=== PATIENT | male | born 1955 | race American Indian/Alaskan Native ===

== ENCOUNTER 2017-01-21 21:00 | Inpatient (IN) | payer MEDICAID ==
[2017-01-21] MEDS ORDERED: NACL 0.9% 1000 ML 1,000 ML ONE (21:09)
[2017-01-21] MEDS ORDERED: VASELINE LIP THERAPY TP PRN (21:11)
[2017-01-21] MEDS ORDERED: ARTIFICIAL TEARS OPHTH OINT OU PRN (21:11)
[2017-01-21] MEDS ORDERED: KEPPRA 1,000 MG/NS 0.75% 100ML 1,000 MG/100 ML BAG IV ONE (21:13)
[2017-01-21] MEDS ORDERED: ZEMURON IV ONE (21:14)
[2017-01-21] MEDS ORDERED: VERSED IV ONE (21:14)
[2017-01-21] MEDS ORDERED: KETALAR IV ONE (21:14)
[2017-01-21] MEDS ORDERED: fentaNYL DRIP Premix 2,000 MCG/100 ML BAG IV ONE (21:15)
--- NOTE | 2017-01-21 21:22 | Emergency Department Report ---
HPI - General Time Seen by Provider: 01/21/17 21:11 - HPI HPI: This is a 61-year-old [place] male presents to the emergency department from [facility] with complaint of 2 prolonged seizures. The patient has a history of seizure disorder. Allegedly, per EMS, the patient had a 10 minute long seizure followed by a second seizure that lasted about 17 minutes. He received 1 mg of Ativan prior to EMSs arrival. In route to the emergency department the patient appeared to start having some signs of respiratory distress. He is currently a poor historian secondary to his medical condition. ED Past Medical Hx - Past Medical History Hx Hypertension: Yes Hx Congestive Heart Failure: No Hx Diabetes: No Hx Seizures: Yes Hx Asthma: No Hx COPD: No Hx Dementia: Yes - Social History Smoking Status: Unknown if ever smoked - Medications Home Medications: Home Medications Medication Instructions Recorded Confirmed Last Taken Type Aspirin 81 mg PO DAILY 05/06/16 09/15/16 05/06/16 History Donepezil [Aricept] 10 mg PO QDAY 05/06/16 09/15/16 05/06/16 History levETIRAcetam [Keppra TAB] 750 mg PO BID tablet 09/16/16 Unknown Rx ED Review of Systems ROS: Stated complaint: SEIZURE Other details as noted in HPI Comment: Unobtainable due to pts medical conditions Physical Exam - Physical Exam Physical Exam: GENERAL: The patient is ill-appearing and unresponsive. HENT: Normocephalic. Atraumatic. Patient has moist mucous membranes. Oropharynx is clear. No Reflux. EYES: . Pupils equal reactive to light bilaterally. NECK: Supple. Trachea is midline. CHEST/LUNGS: Clear to auscultation. There is no respiratory distress noted. HEART/CARDIOVASCULAR: Regular. There is mild tachycardia. There is no gallop rub or murmur. ABDOMEN: Abdomen is soft. Patient has normal bowel sounds. There is no abdominal distention. SKIN: Skin is hot but dry. NEURO: Patient is unresponsive. Withdraws slightly from painful stimuli. No gag reflex. GCS of 6. MUSCULOSKELETAL: There is no tenderness or deformity. There is no limitation range of motion. There is no evidence of acute injury. - Intubation Time Out Performed: Yes Sedative: Ketamine Mg Given: 100 Paralytic: Rocuronium Mg Given: 70 Laryngoscope: Kenneth Size: 4 ET Tube Size: 8 Tube Secured Depth (cm): 24 Tube Secured Location: lips Tube Placement Confirmation: visualized tube passing t, equal breath sounds bilat, confirmation by capnometr Patient Tolerated Procedure: well Intubation Complications: none ED Medical Decision Making - Lab Data Result diagrams: 01/21/17 21:24 01/21/17 21:24 - Radiology Data Radiology results: report reviewed, image reviewed interpreted by me: Chest x-ray does not show any acute process. There are no pleural effusions, obvious pneumonia and there is no pneumothorax. ET tube appears to be in appropriate position above the stephany. CT of the head does not show any acute intracranial process including no ischemia, shift, mass, bleeding or skull fracture. - Medical Decision Making 61-year-old male presents after having 2 prolonged seizures. Patient is most likely postictal but has a GCS of 6 and no gag reflex. For this reason he was intubated. CT of the head does not show any bleed, shift, mass or any acute process. Chest x-ray shows appropriate position of the ET tube and no obvious pneumonia or pleural effusion. He has a lactic acidosis, leukocytosis and respiratory acidosis. He was covered with a loading dose of Keppra. He is on a benzodiazepine drip for both sedation and potentially treatment for prophylaxis against further seizures. He will be admitted to the ICU and has been accepted for admission by the hospitalist, Dr ludwig. - Differential Diagnosis CVA, TIA, status epilepticus Critical Care Time: Yes Critical care time in (mins) excluding proc time.: 35 Critical care attestation.: If time is entered above; I have spent that time in minutes in the direct care of this critically ill patient, excluding procedure time. Critical care time was spent on this patient and his initial evaluation, multiple re-evaluations, ordering an interpretation of labs and imaging, discussion with the admitting hospitalist, disposition planning. This does not include the time spent doing the intubation procedure. Critical Care Time: 35 minutes ED Disposition Clinical Impression: Status epilepticus, Seizure disorder, Respiratory acidosis, Lactic acidosis Respiratory failure Qualifiers: Chronicity: acute Respiratory failure complication: hypercapnia Qualified Code( s): J96.02 - Acute respiratory failure with hypercapnia Leukocytosis Qualifiers: Leukocytosis type: unspecified Qualified Code(s): D72.829 - Elevated white blood cell count, unspecified Disposition: 09 OP ADMIT IP TO THIS HOSP Is pt being admited?: Yes Condition: Serious Time of Disposition: 00:03
--- NOTE | 2017-01-21 21:37 | XRay Report ---
FINAL REPORT PROCEDURE: XR CHEST 1V AP TECHNIQUE: Chest radiograph anteroposterior view. CPT 78446 HISTORY: ETT placement COMPARISON: No prior studies are available for comparison. FINDINGS: Heart: Normal. Mediastinum/Vessels: Normal. Lungs/Pleural space: Likely mild hypoventilatory changes are seen at the right lung base. Bony thorax: No acute osseous abnormality. Life support devices: Endotracheal tube terminates 2.7 cm above the stephany.. IMPRESSION: Endotracheal tube terminates 2.7 cm above the stephany.
[2017-01-21 21:42] LABS: Hematocrit 42.5 % (35.5-45.6); Mean Corpuscular HGB Conc 33 % (32-34); Mean Corpuscular Hemoglobin 30 pg (28-32); Mean Corpuscular Volume 90 fl (84-94); Platelet Count 275 K/mm3 (140-440); Red Blood Count 4.73 M/mm3 (3.65-5.03); Red Cell Distribution Width 13.9 % (13.2-15.2)
[2017-01-21 21:45] LABS: Bilirubin,Urine NEG (Negative); Blood,Urine SM (Negative); Ketones,Urine NEG (Negative); Leukocyte Esterase,Urine NEG (Negative); Nitrite,Urine NEG (Negative); Urobilinogen,Urine < 2.0 mg/dL (<2.0)
[2017-01-21 21:51] LABS: INR 0.97 (0.87-1.13)
[2017-01-21 21:54] LABS: Eosinophils % (Auto) 0.2 % (0.0-4.3)
[2017-01-21] MEDS ORDERED: MIDAZOLAM 100 MG in NACL 0.9% 80 ML IV SCH (22:00)
[2017-01-21 22:03] LABS: Alanine Aminotransferase 17 units/L (7-56); Albumin 3.8 g/dL (3.9-5); Alkaline Phosphatase 77 units/L (35-129); Anion Gap 20 mmol/L; BUN/Creatinine Ratio 13.33; Blood Urea Nitrogen 20 mg/dL (9-20); Calcium 8.4 mg/dL (8.4-10.2); Carbon Dioxide 24 mmol/L (22-30); Chloride 102.4 mmol/L (98-107); Glucose 116 mg/dL (75-100); Potassium 4.4 mmol/L (3.6-5.0); Sodium 142 mmol/L (137-145); Total Protein 7.7 g/dL (6.3-8.2)
[2017-01-21 23:19] LABS: Basophils % (Manual) 0 % (0.0-1.8); Blastocytes % (Manual) 0 %; Eosinophils % (Manual) 0 % (0.0-4.3)
[2017-01-21 23:20] LABS: Diff Status Complete; Platelet Estimate Consistent w Auto; RBC Morphology Normal
[2017-01-21 23:30] LABS: ISTAT Base Excess 0; ISTAT HCO3 26.4; ISTAT PCO2 54.5 (35-45); ISTAT PH 7.292 (7.35-7.45); ISTAT PO2 98 (80-105); ISTAT SO2 97; ISTAT TCO2 28
[2017-01-21 23:34] LABS: LA REFLEX Y
[2017-01-21] MEDS ORDERED: VANCOMYCIN/NS 1 GM/250 ML 1 GM/250 ML BAG IV ONE (23:38)
[2017-01-21] MEDS ORDERED: ROCEPHIN/NS 2 GM/100 ML 2 GM/100 ML BAG IV ONE (23:38)
--- NOTE | 2017-01-21 23:42 | Cat Scan Report ---
FINAL REPORT PROCEDURE: CT HEAD/BRAIN WO CON TECHNIQUE: Computerized tomography of the head was performed without contrast material. HISTORY: AMS, seizures COMPARISON: Head CT dated September 14, 2016 FINDINGS: Maxillary sinuses are hypoplastic. Mastoid air cells are clear no calvarial fracture is seen. Calcifications are seen in the distal ICAs. Moderate volume loss is seen which is greatest in the frontal and temporal lobes. This may be due to dementia. Cerebral ventricles are normal in size. Mild chronic small vessel ischemic changes are seen without evidence of acute CVA. No acute intracranial hemorrhage or mass effect is seen. IMPRESSION: Appearance of the brain is unchanged since prior study.
[2017-01-22] MEDS ORDERED: ALUM-MAG HYDROX-SIMETH 200-200-20MG/5ML PO PRN (00:07)
[2017-01-22] MEDS ORDERED: MILK OF MAGNESIA PO PRN (00:07)
[2017-01-22] MEDS ORDERED: DULCOLAX PR PRN (00:07)
[2017-01-22] MEDS ORDERED: ZOFRAN IV PRN (00:07)
[2017-01-22] MEDS ORDERED: ATIVAN IV PRN (00:57)
[2017-01-22] MEDS ORDERED: TYLENOL PR ONE ×2 (01:40→01:55)
[2017-01-22 02:51] LABS: Cholesterol 273 mg/dL (50-199); HDL Cholesterol 73 mg/dL (40-59); LDL Cholesterol,Direct 187 mg/dL (50-130); Triglycerides 67 mg/dL (2-149)
[2017-01-22] MEDS ORDERED: NACL 0.9% 1000 ML 2,000 ML IV ONE (02:57)
[2017-01-22] MEDS ORDERED: ASPIRIN PR STA (03:02)
--- NOTE | 2017-01-22 03:03 | History and Physical Report ---
History of Present Illness Date of examination: 01/22/17 Date of admission: 01/22/17 00:07 Chief complaint: seizures History of present illness: Patient is 61-year-old with history of seizure disorder, dementia and hypertension. He is a resident at [facility] facility. He was sent in from skilled facility because of recurrent prolonged seizures. He apparently had 2 episodes of seizures, one of 10 mins duration and second of 17 mins duration. He was given IV Ativan. Paramedics were called and he was brought to the emergency department. He had respiratory distress and was therefore intubated in the Emergency department. Past History Past Medical History: hypertension, seizures, other (dementia) Past Surgical History: No surgical history Social history: full code, other (Lives in SNF). denies: smoking, alcohol abuse Family history: hypertension Medications and Allergies Allergies Allergy/AdvReac Type Severity Reaction Status Date / Time No Known Allergies Allergy Verified 01/21/17 22:27 Home Medications Medication Instructions Recorded Confirmed Last Taken Type Aspirin 81 mg PO DAILY 05/06/16 09/15/16 05/06/16 History Donepezil [Aricept] 10 mg PO QDAY 05/06/16 09/15/16 05/06/16 History levETIRAcetam [Keppra TAB] 750 mg PO BID tablet 09/16/16 Unknown Rx Active Meds: Active Medications Al Hydrox/Mg Hydrox/Simethicone (Alum-Mag Hydrox-Simeth 426-264-28xp/5ml) 30 ml PO Q4H PRN PRN Reason: Indigestion Aspirin (Baby Aspirin) 81 mg PO DAILY CHER Aspirin (Aspirin) 300 mg WI ONCE STA Stop: 01/22/17 03:03 Bisacodyl (Dulcolax) 10 mg WI QDAY PRN PRN Reason: constipation unrelieved by MOM Donepezil HCl (Aricept) 10 mg PO QDAY CHER Heparin Sodium (Porcine) (Heparin) 5,000 unit SUB-Q Q8HR CHER Hydrophilic Ointment (Vaseline Lip Therapy) 1 applic TP Q2HR PRN PRN Reason: Dry Lips Fentanyl Citrate (Fentanyl Drip Premix) 2,000 mcg in 100 mls @ 3.742 mls/hr IV TITR CHER; 1 MCG/KG/HR PRN Reason: Protocol Midazolam HCl 100 mg/ Sodium (Chloride) 100 mls @ 2 mls/hr IV TITR CHER; 2 MG/HR PRN Reason: Protocol Dextrose/Sodium Chloride (D5/0.45ns) 1,000 mls @ 75 mls/hr IV DIRECT CHER Levetiracetam 1,000 mg/ Sodium (Chloride) 110 mls @ 400 mls/hr IV Q12HR CHER Lorazepam (Ativan) 1 mg IV Q1H PRN PRN Reason: Seizures Magnesium Hydroxide (Milk Of Magnesia) 30 ml PO Q4H PRN PRN Reason: Constipation Multi-Ingred Cream/Lotion/Oil/Oint (Artificial Tears Ophth Oint) 1 applic OU Q4HR PRN PRN Reason: Dry Eye(s) Ondansetron HCl (Zofran) 4 mg IV Q6H PRN PRN Reason: nausea or vomiting Review of Systems ROS unobtainable: due to endotracheal tube Exam - Physical Exam Narrative exam: Gen Appearance: Not in acute distress, intubated,sedated HEENT: normocephalic, atraumatic Neck: supple, no JVD Lungs: Clear to auscultation, bilaterally, no rales, no wheeze Heart: S1 and S2 regular, no murmurs,no rubs or gallop, Abdomen: Soft , non tender, non distended, normal bowel sounds Extremity: No edema, no clubbing or cyanosis, Neuro :Intubated,sedated - Constitutional Vitals: Temp Pulse Resp BP Pulse Ox 101.2 F H 88 20 109/66 100 01/22/17 02:19 01/22/17 02:19 01/22/17 02:19 01/22/17 02:19 01/22/17 02:19 Results - Labs CBC & Chem 7: 01/21/17 21:24 01/21/17 21:24 Labs: Abnormal lab results 01/22/17 01/22/17 Range/Units 01:25 01:25 Lactic Acid 3.50 H* (0.7-2.0) mmol/L Troponin T 0.773 H* D (0.00-0.029) ng/mL Cholesterol 273 H (50-199) mg/dL LDL Cholesterol Direct 187 H (50-130) mg/dL HDL Cholesterol 73 H (40-59) mg/dL Assessment and Plan Acute respiratory failure. Admit to intensive care unit. Patient intubated and sedated. Consult distribution operations manager/ ekg manager. Breakthrough seizures. He has been given Ativan iv, Keppra IV. Continue Keppra 1000mg iv q 12 and ativan iv prn. Implement seizure precautions. Neuro checks every 4 hours. Hypertension. Bp stable. Will monitor. Lactic acidosis of 3.4. This is most likely due to seizures. Leukocytosis, likely reactive. Review of medical records shows his WBC is mostly elevated. Will however give empiric antibiotics of Zosyn and Vanco until infection ruled out. Dementia continue Aricept DVT prophylaxis with heparin Full code status.
[2017-01-22] MEDS ORDERED: VANCOMYCIN VIAL IV ONE (03:06)
[2017-01-22 03:29] LABS: LA REFLEX Y
[2017-01-22] MEDS ORDERED: VANCOMYCIN 1,500 MG in NACL 0.9% 500 ML 500 ML IV ONE (03:30)
[2017-01-22] MEDS ORDERED: VANCOMYCIN PHARMACY TO DOSE IV SCH (04:00)
[2017-01-22] MEDS ORDERED: VANCOMYCIN VIAL 500 MG in NACL 0.9% 100 ML IV ONE (04:00)
[2017-01-22] MEDS: LOPRESSOR IV SCH ×3 (04:25→21:02)
[2017-01-22] MEDS: fentaNYL DRIP Premix 2,000 MCG/100 ML BAG IV SCH ×2 (04:38→11:45)
[2017-01-22] MEDS: D5/0.45NS 1,000 ML IV SCH (05:12)
[2017-01-22] MEDS: ZOSYN/NS 4.5GM/100ML 4.5 GM/100 ML VIAL IV SCH ×3 (06:00→21:10)
[2017-01-22 06:06] LABS: ISTAT Base Excess -5; ISTAT HCO3 18.7; ISTAT PCO2 25.6 (35-45); ISTAT PH 7.472 (7.35-7.45); ISTAT PO2 163 (80-105); ISTAT SO2 100; ISTAT TCO2 19
--- NOTE | 2017-01-22 06:41 | Event Note ---
Date: 01/22/17 Second Troponin level elevated. Give Aspirin, Metoprolol iv, get Echo, consult cardiology.
[2017-01-22] MEDS ORDERED: KEPPRA 1,000 MG in NACL 0.9% 100 ML IV SCH (08:00)
--- NOTE | 2017-01-22 08:25 | XRay Report ---
AP CHEST: HISTORY: Followup respiratory failure The endotracheal tube remains in good position. A nasogastric tube has been inserted since yesterday's exam which terminates in the fundus of the stomach. Heart size and pulmonary vascularity remain within normal limits. Small right pleural effusion or right pleural thickening is suspected which is unchanged. The lungs are clear otherwise. IMPRESSION: No change.
[2017-01-22] MEDS ORDERED: BABY ASPIRIN PO SCH (10:00)
[2017-01-22] MEDS: KEPPRA 1,000 MG in NACL 0.9% 100 ML IV SCH ×2 (10:17→23:01)
[2017-01-22 10:18] LABS: Creatine Kinase MB 12.9 ng/mL (0.0-4.0)
[2017-01-22] MEDS: PEPCID IV SCH ×2 (10:25→23:07)
[2017-01-22] MEDS ORDERED: KETALAR ONE (10:39)
[2017-01-22] MEDS ORDERED: ZEMURON IV ONE (10:39)
[2017-01-22] MEDS: ARICEPT PO SCH (11:33)
--- NOTE | 2017-01-22 11:51 | Consultation ---
History of Present Illness Consult date: 01/22/17 Requesting physician: ANDERSON HARRISON Consult reason: abnormal cardiac enzymes History of present illness: The pt is a 61 YO NHR male with a past medical history significant for seizure d /o, HTN and dementia. He is previously unknown to our practice. He is intubated and sedated on evaluation with no family at bedside and thus HPI is obtained per the records and per primary RN. Pt presented to the emergency department from [facility] with complaint of 2 prolonged seizures. The patient has a history of seizure disorder. Allegedly, per EMS, the patient had a 10 minute long seizure followed by a second seizure that lasted about 17 minutes. He received 1 mg of Ativan prior to EMSs arrival. In route to the emergency department the patient appeared to start having some signs of respiratory distress and was subsequently intubated in the ED. Following admission, troponins were found to be elevated and thus cardiology has been consulted. Past History Past Medical History: hypertension, seizures, other (dementia) Past Surgical History: No surgical history Social history: full code, other (Lives in SNF). denies: smoking, alcohol abuse Family history: hypertension Medications and Allergies Allergies Allergy/AdvReac Type Severity Reaction Status Date / Time No Known Allergies Allergy Verified 01/21/17 22:27 Home Medications Medication Instructions Recorded Confirmed Last Taken Type Aspirin 81 mg PO DAILY 05/06/16 09/15/16 05/06/16 History Donepezil [Aricept] 10 mg PO QDAY 05/06/16 09/15/16 05/06/16 History levETIRAcetam [Keppra TAB] 750 mg PO BID tablet 09/16/16 Unknown Rx Active Meds: Active Medications Al Hydrox/Mg Hydrox/Simethicone (Alum-Mag Hydrox-Simeth [phone]/5ml) 30 ml PO Q4H PRN PRN Reason: Indigestion Bisacodyl (Dulcolax) 10 mg MD QDAY PRN PRN Reason: constipation unrelieved by MOM Donepezil HCl (Aricept) 10 mg PO QDAY [facility] Last Admin: 01/22/17 11:33 Dose: 10 mg Famotidine (Pepcid) 20 mg IV BID [facility] Last Admin: 01/22/17 10:25 Dose: 20 mg Heparin Sodium (Porcine) (Heparin) 5,000 unit SUB-Q Q8HR CHER Hydrophilic Ointment (Vaseline Lip Therapy) 1 applic TP Q2HR PRN PRN Reason: Dry Lips Fentanyl Citrate (Fentanyl Drip Premix) 2,000 mcg in 100 mls @ 3.742 mls/hr IV TITR CHER; 1 MCG/KG/HR PRN Reason: Protocol Last Titration: 01/22/17 11:44 Dose: Infused Midazolam HCl 100 mg/ Sodium (Chloride) 100 mls @ 2 mls/hr IV TITR CHER; 2 MG/HR PRN Reason: Protocol Last Titration: 01/22/17 11:43 Dose: 2 mg/hr, 2 mls/hr Dextrose/Sodium Chloride (D5/0.45ns) 1,000 mls @ 75 mls/hr IV DIRECT CHER Last Admin: 01/22/17 05:12 Dose: 75 mls/hr Levetiracetam 1,000 mg/ Sodium (Chloride) 110 mls @ 400 mls/hr IV Q12HR CHER Last Admin: 01/22/17 10:17 Dose: 400 mls/hr Piperacillin Sod/Tazobactam Sod (Zosyn/Ns 4.5gm/100ml) 4.5 gm in 100 mls @ 200 mls/hr IV Q8H CHER PRN Reason: Protocol Last Admin: 01/22/17 06:00 Dose: 200 mls/hr Vancomycin HCl 1,250 mg/ (Sodium Chloride) 262.5 mls @ 166.667 mls/hr IV Q24H CHER Lorazepam (Ativan) 1 mg IV Q1H PRN PRN Reason: Seizures Magnesium Hydroxide (Milk Of Magnesia) 30 ml PO Q4H PRN PRN Reason: Constipation Metoprolol Tartrate (Lopressor) 2.5 mg IV Q8H [facility] Last Admin: 01/22/17 11:41 Dose: Not Given Multi-Ingred Cream/Lotion/Oil/Oint (Artificial Tears Ophth Oint) 1 applic OU Q4HR PRN PRN Reason: Dry Eye(s) Ondansetron HCl (Zofran) 4 mg IV Q6H PRN PRN Reason: nausea or vomiting Vancomycin HCl (Vancomycin Pharmacy To Dose) 1 each IV PKCONSULT CHER PRN Reason: Protocol Review of Systems ROS unobtainable: due to endotracheal tube, due to mental status Physical Examination Vital Signs Temp Pulse Resp BP Pulse Ox 98.9 F 103 H 6 L 103/53 96 01/21/17 21:00 01/21/17 21:00 01/21/17 21:00 01/21/17 21:00 01/21/17 21:00 General appearance: other (intubated; sedated) HEENT: Positive: PERRL, Normocephaly, Mucus Membranes Moist Neck: Positive: neck supple, trachea midline Cardiac: Positive: Reg Rate and Rhythm, S1/S2 Lungs: Positive: clear to auscultation, Ventilated Respirations Neuro: Positive: Other (intubated; sedated) Abdomen: Positive: Soft, Active Bowel Sounds Skin: Positive: Clear. Negative: Rash, Wound Musculoskeletal: No Fluid Collection, No Pain, Normal Range of Motion Extremities: Absent: edema Results 01/21/17 21:24 01/21/17 21:24 Cardiac Enzymes 01/22/17 Range/Units 09:38 CK-MB (CK-2) 12.9 H (0.0-4.0) ng/mL Lipids 01/22/17 Range/Units 01:25 Triglycerides 67 (2-149) mg/dL Cholesterol 273 H (50-199) mg/dL HDL Cholesterol 73 H (40-59) mg/dL Cholesterol/HDL Ratio 3.73 % - Imaging and Cardiology Echo: pending EKG: image reviewed EKG interpretations - Telemetry EKG Rhythm: Sinus Rhythm - EKG Sinus rhythms and dysrhythmias: sinus rhythm AV and intraventricular conduction: right bundle branch block Repolarization changes or abnormalities: nonspecific abnormality, ST segment, and/or T wave Assessment and Plan Assessment: Acute respiratory failure - intubated Seizure d/o Elevated troponin - Joy trending down; ECG with no ischemic changes; likely secondary to recent seizure activity and suspected acute infection H/o HTN - currently with low normal BPs Lactic acidosis / leukocytosis / ? UTI / ? sepsis - blood and sputum cultures in process RBBB HLP H/o dementia Plan: Await echo. Obtain serial EKGs. Cont to trend Joy. Cont ASA MD, statin, lopressor. IV ABX per primary. Cont supportive measures. Suspect elevated Joy are secondary to recent seizure activity and suspected acute infection. Continue with conservative medical cardiac management and this time unless ischemic eval becomes emergently indicated. Will consider ischemic evaluation once medically stabilized and once baseline mental status is known. The patient has been seen in conjunction with Dr. Doss who agrees with the assessment and plan of care.
[2017-01-22 16:04] LABS: Creatine Kinase MB 17.4 ng/mL (0.0-4.0)
[2017-01-22] MEDS: HEPARIN SUB-Q SCH ×2 (16:06→23:06)
--- NOTE | 2017-01-22 21:47 | Consultation ---
History of Present Illness Consult date: 01/22/17 Requesting physician: ANDERSON HARRISON Reason for consult: other (Acute respiratory failure) History of present illness: 61 yo with dementia, seizure d/o, resides at [place], admitted w/ 2 long seizures. Required intubation for airway protection. On Versed and Fentanyl drips now, sedated, and cannot provide hx. Further hx not obtainable. No seizures today. Active Medications Al Hydrox/Mg Hydrox/Simethicone (Alum-Mag Hydrox-Simeth 045-195-15th/5ml) 30 ml PO Q4H PRN PRN Reason: Indigestion Aspirin (Aspirin) 300 mg KS QDAY CHER Atorvastatin Calcium (Lipitor) 40 mg PO QHS CHER Bisacodyl (Dulcolax) 10 mg KS QDAY PRN PRN Reason: constipation unrelieved by MOM Donepezil HCl (Aricept) 10 mg PO QDAY CHER Last Admin: 01/22/17 11:33 Dose: 10 mg Famotidine (Pepcid) 20 mg IV BID CHER Last Admin: 01/22/17 10:25 Dose: 20 mg Heparin Sodium (Porcine) (Heparin) 5,000 unit SUB-Q Q8HR CHER Last Admin: 01/22/17 16:06 Dose: 5,000 unit Hydrophilic Ointment (Vaseline Lip Therapy) 1 applic TP Q2HR PRN PRN Reason: Dry Lips Fentanyl Citrate (Fentanyl Drip Premix) 2,000 mcg in 100 mls @ 3.742 mls/hr IV TITR CHER; 1 MCG/KG/HR PRN Reason: Protocol Last Titration: 01/22/17 17:15 Dose: 5 mcg/kg/hr, 18.711 mls/hr Midazolam HCl 100 mg/ Sodium (Chloride) 100 mls @ 2 mls/hr IV TITR CHER; 2 MG/HR PRN Reason: Protocol Last Titration: 01/22/17 20:08 Dose: 4 mg/hr, 4 mls/hr Dextrose/Sodium Chloride (D5/0.45ns) 1,000 mls @ 75 mls/hr IV DIRECT CHER Last Admin: 01/22/17 05:12 Dose: 75 mls/hr Levetiracetam 1,000 mg/ Sodium (Chloride) 110 mls @ 400 mls/hr IV Q12HR CHER Last Infusion: 01/22/17 12:23 Dose: Infused Piperacillin Sod/Tazobactam Sod (Zosyn/Ns 4.5gm/100ml) 4.5 gm in 100 mls @ 200 mls/hr IV Q8H CHER PRN Reason: Protocol Last Admin: 01/22/17 21:10 Dose: 200 mls/hr Vancomycin HCl 1,250 mg/ (Sodium Chloride) 262.5 mls @ 166.667 mls/hr IV Q24H CHER Lorazepam (Ativan) 1 mg IV Q1H PRN PRN Reason: Seizures Magnesium Hydroxide (Milk Of Magnesia) 30 ml PO Q4H PRN PRN Reason: Constipation Metoprolol Tartrate (Lopressor) 2.5 mg IV Q8H CHER Last Admin: 01/22/17 21:02 Dose: Not Given Multi-Ingred Cream/Lotion/Oil/Oint (Artificial Tears Ophth Oint) 1 applic OU Q4HR PRN PRN Reason: Dry Eye(s) Ondansetron HCl (Zofran) 4 mg IV Q6H PRN PRN Reason: nausea or vomiting Vancomycin HCl (Vancomycin Pharmacy To Dose) 1 each IV PKCONSULT [facility]ER PRN Reason: Protocol Past History Past Medical History: hypertension, seizures, other (dementia) Past Surgical History: No surgical history Social history: full code, other (Lives in SNF). denies: smoking, alcohol abuse Family history: hypertension Medications and Allergies Allergies Allergy/AdvReac Type Severity Reaction Status Date / Time No Known Allergies Allergy Verified 01/21/17 22:27 Home Medications Medication Instructions Recorded Confirmed Last Taken Type Aspirin 81 mg PO DAILY 05/06/16 01/22/17 05/06/16 History Donepezil [Aricept] 10 mg PO QDAY 05/06/16 01/22/17 05/06/16 History levETIRAcetam [Keppra TAB] 750 mg PO BID tablet 09/16/16 01/22/17 Unknown Rx Cholecalciferol (Vitamin D3) 1,000 unit PO DAILY 01/22/17 01/22/17 Unknown History [Children's Vitamin D3 1,000 unit CHEW] Sennosides [Senna] 17.2 mg PO DAILY 01/22/17 01/22/17 Unknown History Active Meds: Active Medications Al Hydrox/Mg Hydrox/Simethicone (Alum-Mag Hydrox-Simeth 412-843-82ak/5ml) 30 ml PO Q4H PRN PRN Reason: Indigestion Aspirin (Aspirin) 300 mg KS QDAY CHER Atorvastatin Calcium (Lipitor) 40 mg PO QHS CHER Bisacodyl (Dulcolax) 10 mg KS QDAY PRN PRN Reason: constipation unrelieved by MOM Donepezil HCl (Aricept) 10 mg PO QDAY CHER Last Admin: 01/22/17 11:33 Dose: 10 mg Famotidine (Pepcid) 20 mg IV BID CHER Last Admin: 01/22/17 10:25 Dose: 20 mg Heparin Sodium (Porcine) (Heparin) 5,000 unit SUB-Q Q8HR CHER Last Admin: 01/22/17 16:06 Dose: 5,000 unit Hydrophilic Ointment (Vaseline Lip Therapy) 1 applic TP Q2HR PRN PRN Reason: Dry Lips Fentanyl Citrate (Fentanyl Drip Premix) 2,000 mcg in 100 mls @ 3.742 mls/hr IV TITR CHER; 1 MCG/KG/HR PRN Reason: Protocol Last Titration: 01/22/17 17:15 Dose: 5 mcg/kg/hr, 18.711 mls/hr Midazolam HCl 100 mg/ Sodium (Chloride) 100 mls @ 2 mls/hr IV TITR CHER; 2 MG/HR PRN Reason: Protocol Last Titration: 01/22/17 20:08 Dose: 4 mg/hr, 4 mls/hr Dextrose/Sodium Chloride (D5/0.45ns) 1,000 mls @ 75 mls/hr IV DIRECT CHER Last Admin: 01/22/17 05:12 Dose: 75 mls/hr Levetiracetam 1,000 mg/ Sodium (Chloride) 110 mls @ 400 mls/hr IV Q12HR CHER Last Infusion: 01/22/17 12:23 Dose: Infused Piperacillin Sod/Tazobactam Sod (Zosyn/Ns 4.5gm/100ml) 4.5 gm in 100 mls @ 200 mls/hr IV Q8H CHER PRN Reason: Protocol Last Admin: 01/22/17 21:10 Dose: 200 mls/hr Vancomycin HCl 1,250 mg/ (Sodium Chloride) 262.5 mls @ 166.667 mls/hr IV Q24H CHER Lorazepam (Ativan) 1 mg IV Q1H PRN PRN Reason: Seizures Magnesium Hydroxide (Milk Of Magnesia) 30 ml PO Q4H PRN PRN Reason: Constipation Metoprolol Tartrate (Lopressor) 2.5 mg IV Q8H [facility] Last Admin: 01/22/17 21:02 Dose: Not Given Multi-Ingred Cream/Lotion/Oil/Oint (Artificial Tears Ophth Oint) 1 applic OU Q4HR PRN PRN Reason: Dry Eye(s) Ondansetron HCl (Zofran) 4 mg IV Q6H PRN PRN Reason: nausea or vomiting Vancomycin HCl (Vancomycin Pharmacy To Dose) 1 each IV PKCONSULT [facility] PRN Reason: Protocol Review of Systems ROS unobtainable: due to endotracheal tube Physical Examination Vital signs: Vital Signs Temp Pulse Resp BP Pulse Ox 98.9 F 103 H 6 L 103/53 96 01/21/17 21:00 01/21/17 21:00 01/21/17 21:00 01/21/17 21:00 01/21/17 21:00 Vital Signs - 24 hr 01/21/17 01/21/17 01/21/17 22:00 22:35 23:45 Temperature Pulse Rate 86 84 Pulse Rate [ Left Radial] Pulse Rate [ Right Radial] Respiratory 20 20 Rate Blood Pressure Blood Pressure 111/63 119/66 [Right] O2 Sat by Pulse 100 Oximetry 01/22/17 01/22/17 01/22/17 00:00 00:49 01:16 Temperature Pulse Rate 87 83 86 Pulse Rate [ Left Radial] Pulse Rate [ Right Radial] Respiratory 20 22 Rate Blood Pressure Blood Pressure 117/70 [Right] O2 Sat by Pulse 100 100 100 Oximetry 01/22/17 01/22/17 01/22/17 01:30 01:45 02:00 Temperature Pulse Rate 85 86 92 H Pulse Rate [ Left Radial] Pulse Rate [ Right Radial] Respiratory 22 22 19 Rate Blood Pressure 102/59 114/66 103/60 Blood Pressure [Right] O2 Sat by Pulse 100 100 100 Oximetry 01/22/17 01/22/17 01/22/17 02:15 02:19 02:30 Temperature 101.2 F H Pulse Rate 90 88 86 Pulse Rate [ Left Radial] Pulse Rate [ Right Radial] Respiratory 22 20 22 Rate Blood Pressure 109/66 101/63 Blood Pressure 109/66 [Right] O2 Sat by Pulse 100 100 100 Oximetry 01/22/17 01/22/17 01/22/17 02:46 03:00 03:02 Temperature Pulse Rate 82 77 78 Pulse Rate [ Left Radial] Pulse Rate [ Right Radial] Respiratory 22 22 20 Rate Blood Pressure 97/58 97/58 Blood Pressure 110/57 [Right] O2 Sat by Pulse 100 100 98 Oximetry 01/22/17 01/22/17 01/22/17 03:15 03:30 03:46 Temperature Pulse Rate 75 75 72 Pulse Rate [ Left Radial] Pulse Rate [ Right Radial] Respiratory 22 22 22 Rate Blood Pressure 110/57 110/57 113/58 Blood Pressure [Right] O2 Sat by Pulse 100 100 100 Oximetry 01/22/17 01/22/17 01/22/17 04:00 04:16 04:25 Temperature Pulse Rate 68 72 77 Pulse Rate [ Left Radial] Pulse Rate [ Right Radial] Respiratory 22 22 Rate Blood Pressure 110/55 105/65 124/70 Blood Pressure [Right] O2 Sat by Pulse 100 61 L Oximetry 01/22/17 01/22/17 01/22/17 04:30 04:46 05:00 Temperature Pulse Rate 78 72 70 Pulse Rate [ Left Radial] Pulse Rate [ Right Radial] Respiratory 22 22 22 Rate Blood Pressure 124/70 124/68 124/68 Blood Pressure [Right] O2 Sat by Pulse 100 100 100 Oximetry 01/22/17 01/22/17 01/22/17 05:15 05:22 05:30 Temperature 100.5 F H Pulse Rate 71 71 71 Pulse Rate [ Left Radial] Pulse Rate [ Right Radial] Respiratory 22 22 22 Rate Blood Pressure 105/65 110/55 Blood Pressure 120/60 [Right] O2 Sat by Pulse 100 100 100 Oximetry 01/22/17 01/22/17 01/22/17 05:46 06:00 06:16 Temperature Pulse Rate 69 73 73 Pulse Rate [ Left Radial] Pulse Rate [ Right Radial] Respiratory 22 18 18 Rate Blood Pressure 110/55 109/54 109/54 Blood Pressure [Right] O2 Sat by Pulse 100 100 100 Oximetry 01/22/17 01/22/17 01/22/17 06:30 06:46 07:00 Temperature 100.1 F H Pulse Rate 73 72 71 Pulse Rate [ Left Radial] Pulse Rate [ Right Radial] Respiratory 18 18 18 Rate Blood Pressure 114/64 114/64 114/61 Blood Pressure 115/64 [Right] O2 Sat by Pulse 100 100 100 Oximetry 01/22/17 01/22/17 01/22/17 07:16 07:30 07:46 Temperature Pulse Rate 73 70 67 Pulse Rate [ Left Radial] Pulse Rate [ Right Radial] Respiratory 18 18 18 Rate Blood Pressure 114/61 111/51 111/51 Blood Pressure [Right] O2 Sat by Pulse 100 100 100 Oximetry 01/22/17 01/22/17 01/22/17 08:00 08:16 08:30 Temperature Pulse Rate 66 64 63 Pulse Rate [ 66 Left Radial] Pulse Rate [ 66 Right Radial] Respiratory 18 18 18 Rate Blood Pressure 98/50 98/50 98/50 Blood Pressure [Right] O2 Sat by Pulse 100 100 100 Oximetry 01/22/17 01/22/17 01/22/17 08:46 09:00 09:16 Temperature Pulse Rate 63 65 62 Pulse Rate [ Left Radial] Pulse Rate [ Right Radial] Respiratory 18 18 18 Rate Blood Pressure 104/58 110/56 110/56 Blood Pressure [Right] O2 Sat by Pulse 100 100 100 Oximetry 01/22/17 01/22/17 01/22/17 09:30 09:46 10:00 Temperature Pulse Rate 65 68 65 Pulse Rate [ 67 Left Radial] Pulse Rate [ Right Radial] Respiratory 18 18 18 Rate Blood Pressure 106/54 106/54 106/54 Blood Pressure [Right] O2 Sat by Pulse 100 100 100 Oximetry 01/22/17 01/22/17 01/22/17 10:16 10:30 10:46 Temperature Pulse Rate 67 68 68 Pulse Rate [ Left Radial] Pulse Rate [ Right Radial] Respiratory 18 18 18 Rate Blood Pressure 106/54 110/58 110/58 Blood Pressure [Right] O2 Sat by Pulse 100 100 100 Oximetry 01/22/17 01/22/17 01/22/17 11:00 11:16 11:30 Temperature Pulse Rate 72 68 64 Pulse Rate [ Left Radial] Pulse Rate [ Right Radial] Respiratory 18 18 18 Rate Blood Pressure 106/65 106/65 111/59 Blood Pressure [Right] O2 Sat by Pulse 100 100 Oximetry 01/22/17 01/22/17 01/22/17 11:41 11:46 12:00 Temperature Pulse Rate 60 68 66 Pulse Rate [ Left Radial] Pulse Rate [ Right Radial] Respiratory 18 18 Rate Blood Pressure 106/65 111/59 111/60 Blood Pressure [Right] O2 Sat by Pulse Oximetry 01/22/17 01/22/17 01/22/17 12:16 12:30 12:46 Temperature Pulse Rate 65 64 67 Pulse Rate [ Left Radial] Pulse Rate [ Right Radial] Respiratory 18 18 18 Rate Blood Pressure 112/58 111/62 111/62 Blood Pressure [Right] O2 Sat by Pulse Oximetry 01/22/17 01/22/17 01/22/17 13:00 13:16 13:30 Temperature Pulse Rate 77 64 64 Pulse Rate [ Left Radial] Pulse Rate [ Right Radial] Respiratory 18 18 18 Rate Blood Pressure 124/67 124/67 111/60 Blood Pressure [Right] O2 Sat by Pulse Oximetry 01/22/17 01/22/17 01/22/17 13:46 14:00 14:16 Temperature Pulse Rate 68 65 113 H Pulse Rate [ 68 Left Radial] Pulse Rate [ 68 Right Radial] Respiratory 18 18 18 Rate Blood Pressure 111/60 121/63 121/63 Blood Pressure [Right] O2 Sat by Pulse Oximetry 01/22/17 01/22/17 01/22/17 14:30 14:46 15:00 Temperature Pulse Rate 68 66 66 Pulse Rate [ Left Radial] Pulse Rate [ Right Radial] Respiratory 18 18 18 Rate Blood Pressure 128/64 128/64 118/61 Blood Pressure [Right] O2 Sat by Pulse Oximetry 01/22/17 01/22/17 01/22/17 15:16 15:30 15:46 Temperature Pulse Rate 66 75 62 Pulse Rate [ Left Radial] Pulse Rate [ Right Radial] Respiratory 18 18 18 Rate Blood Pressure 128/64 128/71 128/71 Blood Pressure [Right] O2 Sat by Pulse 100 100 100 Oximetry 01/22/17 01/22/17 01/22/17 16:00 16:16 16:30 Temperature Pulse Rate 61 75 65 Pulse Rate [ 69 Left Radial] Pulse Rate [ 69 Right Radial] Respiratory 18 16 18 Rate Blood Pressure 126/61 128/62 128/62 Blood Pressure [Right] O2 Sat by Pulse 100 100 100 Oximetry 01/22/17 01/22/17 01/22/17 16:46 17:00 17:16 Temperature Pulse Rate 65 63 73 Pulse Rate [ Left Radial] Pulse Rate [ Right Radial] Respiratory 18 18 18 Rate Blood Pressure 143/62 144/68 144/68 Blood Pressure [Right] O2 Sat by Pulse 100 100 100 Oximetry 01/22/17 01/22/17 01/22/17 17:30 17:46 18:00 Temperature Pulse Rate 82 74 62 Pulse Rate [ Left Radial] Pulse Rate [ Right Radial] Respiratory 16 18 18 Rate Blood Pressure 148/81 148/81 140/90 Blood Pressure [Right] O2 Sat by Pulse 100 100 Oximetry 01/22/17 01/22/17 01/22/17 18:16 18:30 18:46 Temperature Pulse Rate 63 62 60 Pulse Rate [ 68 Left Radial] Pulse Rate [ 68 Right Radial] Respiratory 18 18 18 Rate Blood Pressure 140/90 126/61 126/61 Blood Pressure [Right] O2 Sat by Pulse 100 100 100 Oximetry 01/22/17 01/22/17 01/22/17 19:00 19:16 19:26 Temperature Pulse Rate 59 L 59 L 58 L Pulse Rate [ Left Radial] Pulse Rate [ Right Radial] Respiratory 17 18 Rate Blood Pressure 119/59 119/59 132/63 Blood Pressure [Right] O2 Sat by Pulse 100 100 100 Oximetry 01/22/17 01/22/17 01/22/17 19:30 19:46 20:00 Temperature Pulse Rate 58 L 61 59 L Pulse Rate [ Left Radial] Pulse Rate [ Right Radial] Respiratory 18 18 18 Rate Blood Pressure 132/63 132/63 118/60 Blood Pressure [Right] O2 Sat by Pulse 100 100 100 Oximetry 01/22/17 01/22/17 21:02 21:11 Temperature Pulse Rate 58 L Pulse Rate [ Left Radial] Pulse Rate [ Right Radial] Respiratory 18 Rate Blood Pressure 121/62 Blood Pressure [Right] O2 Sat by Pulse 100 Oximetry General appearance: other (sedated, critically ill on vent) Eyes: non-icteric ENT: oropharynx moist Neck: supple Effort: normal Ascultation: Bilateral: clear Cardiovascular: regular rate and rhythm (no mrg) Gastrointestinal: normoactive bowel sounds, soft, non-tender, non-distended Integumentary: normal Extremities: no cyanosis, no edema unable to assess other (unable to assess) Results - Laboratory Findings CBC and BMP: 01/21/17 21:24 01/21/17 21:24 ABG POC ABG pH 7.472 (7.35-7.45) H 01/22/17 05:55 POC ABG pCO2 25.6 (35-45) L 01/22/17 05:55 POC ABG pO2 163 (80-105) H 01/22/17 05:55 POC ABG HCO3 18.7 01/22/17 05:55 POC ABG Total CO2 19 01/22/17 05:55 POC ABG O2 Sat 100 01/22/17 05:55 PT/INR, D-dimer PT 13.4 Sec. (12.2-14.9) 01/21/17 21:24 INR 0.97 (0.87-1.13) 01/21/17 21:24 Abnormal lab findings: Abnormal Labs 01/22/17 01/22/17 01/22/17 01:25 01:25 03:58 POC ABG pH POC ABG pCO2 POC ABG pO2 POC Glucose Lactic Acid 3.50 H* Total Creatine Kinase CK-MB (CK-2) Troponin T 0.773 H* D 0.702 H* Cholesterol 273 H LDL Cholesterol Direct 187 H HDL Cholesterol 73 H 01/22/17 01/22/17 01/22/17 05:55 08:08 09:38 POC ABG pH 7.472 H POC ABG pCO2 25.6 L POC ABG pO2 163 H POC Glucose 127 H Lactic Acid Total Creatine Kinase 1076 H CK-MB (CK-2) Troponin T Cholesterol LDL Cholesterol Direct HDL Cholesterol 01/22/17 01/22/17 01/22/17 09:38 15:20 15:32 POC ABG pH POC ABG pCO2 POC ABG pO2 POC Glucose Lactic Acid 2.90 H* Total Creatine Kinase 1022 H 1649 H CK-MB (CK-2) 12.9 H 17.4 H Troponin T 0.484 H* D 0.435 H* Cholesterol LDL Cholesterol Direct HDL Cholesterol - Diagnostic Findings Chest x-ray: report reviewed, image reviewed Assessment and Plan Imp: 1. Seizure d/o w/ seizures 2. Acute respiratory failure, hypoxia 3. SIRS and lactic acidosis probably 2/2 #1 4. CHET 5. Dementia Rec: 1. Rest on vent overnight 2. PSV in AM w/ SAT 3. Increase Keppra to 1 gram BID 4. Agree w/ empiric ABX pending cultures 5. IVFs 6. DVT and GI PPx No family present. Thanks for the consult. CCT 31 minutes
[2017-01-23 01:52] LABS: Basophils % (Auto) 0.5 % (0.0-1.8); Eosinophils % (Auto) 0.8 % (0.0-4.3); Hemoglobin 11.6 gm/dl (11.8-15.2); Mean Corpuscular HGB Conc 33 % (32-34); Mean Corpuscular Hemoglobin 30 pg (28-32); Mean Corpuscular Volume 90 fl (84-94); Platelet Count 217 K/mm3 (140-440); Red Blood Count 3.91 M/mm3 (3.65-5.03); Red Cell Distribution Width 14.1 % (13.2-15.2); White Blood Count 12.6 K/mm3 (4.5-11.0)
[2017-01-23 02:37] LABS: Sodium TNR mmol/L (137-145)
[2017-01-23 02:39] LABS: Anion Gap TNR mmol/L; Carbon Dioxide TNR mmol/L (22-30); Chloride TNR mmol/L (98-107); Potassium TNR mmol/L (3.6-5.0)
[2017-01-23 02:40] LABS: BUN/Creatinine Ratio TNR; Blood Urea Nitrogen TNR mg/dL (9-20); Calcium TNR mg/dL (8.4-10.2); Glucose TNR mg/dL (75-100); Magnesium TNR mg/dL (1.7-2.3)
[2017-01-23] MEDS: ZOSYN/NS 4.5GM/100ML 4.5 GM/100 ML VIAL IV SCH ×3 (03:50→20:26)
[2017-01-23] MEDS: LOPRESSOR IV SCH ×3 (03:51→20:21)
[2017-01-23 04:30] LABS: Anion Gap 13 mmol/L; BUN/Creatinine Ratio 10; Blood Urea Nitrogen 11 mg/dL (9-20); Calcium 7.6 mg/dL (8.4-10.2); Carbon Dioxide 21 mmol/L (22-30); Glucose 91 mg/dL (75-100); Potassium 3.4 mmol/L (3.6-5.0); Sodium 141 mmol/L (137-145)
[2017-01-23 04:43] LABS: ISTAT Base Excess -4; ISTAT HCO3 20.3; ISTAT PCO2 30.6 (35-45); ISTAT PH 7.429 (7.35-7.45); ISTAT PO2 155 (80-105); ISTAT SO2 99; ISTAT TCO2 21
[2017-01-23] MEDS: VANCOMYCIN 1,250 MG in NACL 0.9% 250ML 250 ML IV SCH (04:43)
[2017-01-23] MEDS: HEPARIN SUB-Q SCH ×3 (06:32→22:11)
--- NOTE | 2017-01-23 07:41 | XRay Report ---
Portable chest: Respiratory failure. Endotracheal and nasogastric tubes are in good positions. There is pleural thickening at the right lung base laterally and blunting of the costophrenic angle. Lungs are generally clear there is no vascular congestion however there is a focal increased density in the left upper lung not identified on prior exam. The heart is normal in size. Impression: 1. New focal opacity in the left upper lobe. 2. Chronic pleural changes and well positioned support tubes.
[2017-01-23 09:04] LABS: ISTAT Base Excess -2; ISTAT HCO3 23.5; ISTAT PCO2 44.9 (35-45); ISTAT PH 7.327 (7.35-7.45); ISTAT PO2 98 (80-105); ISTAT SO2 97; ISTAT TCO2 25
--- NOTE | 2017-01-23 09:34 | Progress Note ---
Assessment and Plan Acute respiratory failure. - Admited to intensive care unit. - Patient intubated and sedated on admission in the ER. 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 Breakthrough seizures. - He has been given Ativan iv, Keppra IV in the ER - Continue Keppra 1000mg iv q 12 and ativan iv prn. - Implemented seizure precautions. Neuro checks every 4 hours. - neuro consult Hypertension. Bp stable. Will monitor. Lactic acidosis of 3.4. This is most likely due to seizures. Elevated troponin - cardiology consulted Leukocytosis, likely reactive. - Review of medical records shows his WBC is mostly elevated. Will however give empiric antibiotics of Zosyn and Vanco until infection ruled out. Dementia - continue Aricept DVT prophylaxis with heparin Full code status. Brief History: Patient is 61-year-old with history of seizure disorder, dementia and hypertension. He is a resident at assisted facility. He was sent in from skilled facility because of recurrent prolonged seizures. He apparently had 2 episodes of seizures, one of 10 mins duration and second of 17 mins duration. He was given IV Ativan. Paramedics were called and he was brought to the emergency department. He had respiratory distress and was therefore intubated in the Emergency department. Radiological data: Ct head - no acute change Cxr 01/21/17 - stable small right pleural effusion Subjective Date of service: 01/23/17 Interval history: Pt seen and examined on weaning trial now Objective - Constitutional Vitals: Vital Signs - 12hr 01/22/17 01/22/17 01/22/17 22:00 22:30 22:50 Temperature Pulse Rate 63 57 L 57 L Respiratory 18 18 18 Rate Blood Pressure 115/70 123/61 123/61 O2 Sat by Pulse 100 100 100 Oximetry 01/22/17 01/22/17 01/22/17 23:00 23:08 23:30 Temperature Pulse Rate 71 57 L 58 L Respiratory 19 18 18 Rate Blood Pressure 130/58 140/66 127/63 O2 Sat by Pulse 100 100 100 Oximetry 01/23/17 01/23/17 01/23/17 00:00 00:30 01:00 Temperature Pulse Rate 59 L 57 L 56 L Respiratory 18 18 18 Rate Blood Pressure 137/66 122/61 120/60 O2 Sat by Pulse 100 100 100 Oximetry 01/23/17 01/23/1717 01:30 01:58 02:00 Temperature Pulse Rate 54 L 56 L Respiratory 18 18 18 Rate Blood Pressure 120/60 129/64 O2 Sat by Pulse 100 100 Oximetry 01/23/17 01/23/17 01/23/17 02:30 03:00 03:30 Temperature Pulse Rate 55 L 59 L 53 L Respiratory 18 18 18 Rate Blood Pressure 117/59 117/59 110/68 O2 Sat by Pulse 98 100 100 Oximetry 01/23/17 01/23/17 01/23/17 03:51 04:00 04:30 Temperature Pulse Rate 55 L 54 L 70 Respiratory 18 14 Rate Blood Pressure 130/58 126/54 130/58 O2 Sat by Pulse 100 Oximetry 01/23/17 01/23/17 01/23/17 05:00 05:30 06:00 Temperature 97.8 F Pulse Rate 61 56 L 72 Respiratory 14 14 16 Rate Blood Pressure 125/56 138/58 119/63 O2 Sat by Pulse 99 100 100 Oximetry 01/23/17 01/23/17 01/23/17 06:30 07:00 07:30 Temperature Pulse Rate 69 56 L 69 Respiratory 18 14 15 Rate Blood Pressure 119/63 122/59 133/60 O2 Sat by Pulse 100 100 100 Oximetry 01/23/17 01/23/17 01/23/17 07:54 08:00 08:30 Temperature 98.3 F Pulse Rate 79 68 Respiratory 10 L 10 L Rate Blood Pressure 133/60 140/69 O2 Sat by Pulse 99 99 Oximetry 01/23/17 09:00 Temperature Pulse Rate 68 Respiratory 10 L Rate Blood Pressure 152/70 O2 Sat by Pulse 99 Oximetry General appearance: Present: no acute distress, well-nourished - EENT Eyes: PERRL, EOM intact ENT: hearing intact, clear oral mucosa, other (ET tube on place) Ears: bilateral: normal - Neck Neck: supple, normal ROM - Respiratory Respiratory effort: normal Respiratory: bilateral: CTA - Breasts Breasts: normal - Cardiovascular Rhythm: regular Heart Sounds: Present: S1 & S2. Absent: gallop, rub Extremities: pulses intact, No edema, normal color, Full ROM - Gastrointestinal General gastrointestinal: Present: soft, non-tender, non-distended, normal bowel sounds - Integumentary Integumentary: clear, warm, dry - Musculoskeletal Musculoskeletal: 1, strength equal bilaterally - Neurologic Neurologic: moves all extremities - Psychiatric Psychiatric: other (intubated) - Labs CBC & Chem 7: 01/23/17 01:35 01/23/17 03:37 Labs: Abnormal lab results 01/22/17 01/22/17 01/22/17 Range/Units 09:38 09:38 15:20 WBC (4.5-11.0) K/mm3 Hgb (11.8-15.2) gm/dl Hct (35.5-45.6) % [place] % (Auto) (0.0-7.3) % [place] # (0.0-0.8) K/mm3 Seg Neutrophils % (40.0-70.0) % Seg Neutrophils # (1.8-7.7) K/mm3 POC ABG pH (7.35-7.45) POC ABG pCO2 (35-45) POC ABG pO2 (80-105) Potassium (3.6-5.0) mmol/L Chloride (98-107) mmol/L Carbon Dioxide (22-30) mmol/L Lactic Acid 2.90 H* (0.7-2.0) mmol/L Calcium (8.4-10.2) mg/dL Total Creatine Kinase 1076 H 1022 H (55-170) units/L CK-MB (CK-2) 12.9 H (0.0-4.0) ng/mL Troponin T 0.484 H* D (0.00-0.029) ng/mL 01/22/17 01/23/17 01/23/17 Range/Units 15:32 01:35 03:37 WBC 12.6 H (4.5-11.0) K/mm3 Hgb 11.6 L (11.8-15.2) gm/dl Hct 35.0 L D (35.5-45.6) % [place] % (Auto) 10.7 H (0.0-7.3) % [place] # 1.3 H (0.0-0.8) K/mm3 Seg Neutrophils % 73.0 H (40.0-70.0) % Seg Neutrophils # 9.2 H (1.8-7.7) K/mm3 POC ABG pH (7.35-7.45) POC ABG pCO2 (35-45) POC ABG pO2 (80-105) Potassium 3.4 L D (3.6-5.0) mmol/L Chloride 110.0 H (98-107) mmol/L Carbon Dioxide 21 L (22-30) mmol/L Lactic Acid (0.7-2.0) mmol/L Calcium 7.6 L (8.4-10.2) mg/dL Total Creatine Kinase 1649 H (55-170) units/L CK-MB (CK-2) 17.4 H (0.0-4.0) ng/mL Troponin T 0.435 H* (0.00-0.029) ng/mL 01/23/17 01/23/17 Range/Units 04:23 08:54 WBC (4.5-11.0) K/mm3 Hgb (11.8-15.2) gm/dl Hct (35.5-45.6) % [place] % (Auto) (0.0-7.3) % [place] # (0.0-0.8) K/mm3 Seg Neutrophils % (40.0-70.0) % Seg Neutrophils # (1.8-7.7) K/mm3 POC ABG pH 7.327 L (7.35-7.45) POC ABG pCO2 30.6 L (35-45) POC ABG pO2 155 H (80-105) Potassium (3.6-5.0) mmol/L Chloride (98-107) mmol/L Carbon Dioxide (22-30) mmol/L Lactic Acid (0.7-2.0) mmol/L Calcium (8.4-10.2) mg/dL Total Creatine Kinase (55-170) units/L CK-MB (CK-2) (0.0-4.0) ng/mL Troponin T (0.00-0.029) ng/mL
[2017-01-23] MEDS ORDERED: ASPIRIN PR SCH (10:00)
[2017-01-23] MEDS: PEPCID IV SCH ×2 (10:40→22:11)
[2017-01-23] MEDS: KEPPRA 1,000 MG in NACL 0.9% 100 ML IV SCH ×2 (12:06→22:20)
[2017-01-23] MEDS: D5/0.45NS 1,000 ML IV SCH (12:22)
[2017-01-23] MEDS: ARICEPT PO SCH (14:00)
--- NOTE | 2017-01-23 14:15 | Progress Note ---
Assessment and Plan Assessment: Acute respiratory failure - intubated Seizure d/o Elevated troponin - Joy trending down; ECG with no ischemic changes; likely secondary to recent seizure activity and suspected acute infection H/o HTN - currently with low normal BPs Lactic acidosis / leukocytosis / ? UTI / ? sepsis - blood and sputum cultures in process RBBB HLP H/o dementia Plan: Echo reviewed - EF 50-55%, impaired relaxation Cont ASA TX, statin, lopressor. IV ABX per primary. Cont supportive measures. Continue with conservative medical cardiac management and this time unless ischemic eval becomes emergently indicated. Will consider ischemic evaluation once medically stabilized and once baseline mental status is known. The patient has been seen in conjunction with Dr. Doss who agrees with the assessment and plan of care. Subjective Date of service: 01/23/17 Principal diagnosis: seizures; acute respiratory failure; elevated trop Interval history: Pt resting in bed, remains intubated, off sedation, responding to commands, restrained. VSS. No family at bedside. Objective Last Vital Signs Temp 98.3 F 01/23/17 07:54 Pulse 67 01/23/17 12:00 Resp 13 01/23/17 12:00 BP 142/65 01/23/17 12:00 Pulse Ox 99 01/23/17 12:00 - Physical Examination General: Other (intubated; responding to commands) HEENT: Positive: PERRL, Normocephaly, Mucus Membranes Moist Neck: Positive: neck supple, trachea midline Cardiac: Positive: Reg Rate and Rhythm, S1/S2 Lungs: Positive: Decreased Breath Sounds, Ventilated Respirations Neuro: Positive: Other (intubated; responding to commands) Abdomen: Positive: Soft, Active Bowel Sounds Skin: Positive: Clear. Negative: Rash, Wound Musculoskeletal: No Fluid Collection, No Pain, Normal Range of Motion Extremities: Absent: edema - Labs and Meds Cardiac Enzymes 01/22/17 Range/Units 15:32 CK-MB (CK-2) 17.4 H (0.0-4.0) ng/mL CBC 01/23/17 Range/Units 01:35 WBC 12.6 H (4.5-11.0) K/mm3 RBC 3.91 (3.65-5.03) M/mm3 Hgb 11.6 L (11.8-15.2) gm/dl Hct 35.0 L D (35.5-45.6) % Plt Count 217 (140-440) K/mm3 Lymph # 1.9 (1.2-5.4) K/mm3 [place] # 1.3 H (0.0-0.8) K/mm3 Eos # 0.1 (0.0-0.4) K/mm3 Baso # 0.1 (0.0-0.1) K/mm3 Comprehensive Metabolic Panel 01/23/17 01/23/17 Range/Units 01:35 03:37 Sodium TNR 141 Potassium TNR 3.4 L D Chloride TNR 110.0 H Carbon Dioxide TNR 21 L BUN TNR 11 Creatinine TNR 1.1 Glucose TNR 91 Calcium TNR 7.6 L - Imaging and Cardiology EKG: image reviewed Echo: report reviewed (EF 50-55%, impaired relaxation) - Telemetry EKG Rhythm: Sinus Rhythm - EKG Sinus rhythms and dysrhythmias: sinus rhythm AV and intraventricular conduction: right bundle branch block Repolarization changes or abnormalities: nonspecific abnormality, ST segment, and/or T wave
--- NOTE | 2017-01-23 16:10 | Progress Note ---
Assessment and Plan Imp: 1. Seizure d/o w/ seizures 2. Acute respiratory failure, hypoxia 3. SIRS and lactic acidosis probably 2/2 #1 4. CHET 5. Dementia Rec: 1. Extubate -> he meets all criteria 2. D/c vent protocol 3. Increased Keppra to 1 gram BID 4. Agree w/ empiric ABX pending cultures (consider stopping 01/24/17) 5. IVFs; advance diet post-extubation 6. DVT and GI PPx CCT 31 minutes Subjective Date of service: 01/23/17 Principal diagnosis: seizures; acute respiratory failure; elevated trop Interval history: No events. Awake, alert. On PSV 01/25 all day long with RSBI less than 105 and TV upwards of 700's. No SOB or other complaints. Non-focal exam. No seizures. Active Medications Al Hydrox/Mg Hydrox/Simethicone (Alum-Mag Hydrox-Simeth [phone]/5ml) 30 ml PO Q4H PRN PRN Reason: Indigestion Aspirin (Aspirin) 300 mg [place] QDAY [facility] Last Admin: 01/23/17 10:40 Dose: 300 mg Atorvastatin Calcium (Lipitor) 40 mg PO QHS [facility] Last Admin: 01/22/17 23:32 Dose: 40 mg Bisacodyl (Dulcolax) 10 mg [place] QDAY PRN PRN Reason: constipation unrelieved by MOM Donepezil HCl (Aricept) 10 mg PO QDAY [facility] Last Admin: 01/22/17 11:33 Dose: 10 mg Famotidine (Pepcid) 20 mg IV BID [facility] Last Admin: 01/23/17 10:40 Dose: 20 mg Heparin Sodium (Porcine) (Heparin) 5,000 unit SUB-Q Q8HR [facility] Last Admin: 01/23/17 06:32 Dose: 5,000 unit Hydrophilic Ointment (Vaseline Lip Therapy) 1 applic TP Q2HR PRN PRN Reason: Dry Lips Fentanyl Citrate (Fentanyl Drip Premix) 2,000 mcg in 100 mls @ 3.742 mls/hr IV TITR [facility]; 1 MCG/KG/HR PRN Reason: Protocol Last Titration: 01/23/17 06:22 Dose: Infused Midazolam HCl 100 mg/ Sodium (Chloride) 100 mls @ 2 mls/hr IV TITR [facility]; 2 MG/HR PRN Reason: Protocol Last Titration: 01/23/17 08:02 Dose: Infused Dextrose/Sodium Chloride (D5/0.45ns) 1,000 mls @ 75 mls/hr IV DIRECT [facility] Last Admin: 01/23/17 12:22 Dose: 75 mls/hr Levetiracetam 1,000 mg/ Sodium (Chloride) 110 mls @ 400 mls/hr IV Q12HR [facility] Last Admin: 01/23/17 12:06 Dose: 400 mls/hr Piperacillin Sod/Tazobactam Sod (Zosyn/Ns 4.5gm/100ml) 4.5 gm in 100 mls @ 200 mls/hr IV Q8H [facility] PRN Reason: Protocol Last Admin: 01/23/17 12:48 Dose: 200 mls/hr Vancomycin HCl 1,250 mg/ (Sodium Chloride) 262.5 mls @ 166.667 mls/hr IV Q24H [facility] Last Admin: 01/23/17 04:43 Dose: 166.667 mls/hr Lorazepam (Ativan) 1 mg IV Q1H PRN PRN Reason: Seizures Magnesium Hydroxide (Milk Of Magnesia) 30 ml PO Q4H PRN PRN Reason: Constipation Metoprolol Tartrate (Lopressor) 2.5 mg IV Q8H [facility] Last Admin: 01/23/17 10:47 Dose: 2.5 mg Multi-Ingred Cream/Lotion/Oil/Oint (Artificial Tears Ophth Oint) 1 applic OU Q4HR PRN PRN Reason: Dry Eye(s) Ondansetron HCl (Zofran) 4 mg IV Q6H PRN PRN Reason: nausea or vomiting Vancomycin HCl (Vancomycin Pharmacy To Dose) 1 each IV PKCONSULT [facility] PRN Reason: Protocol Objective Vital Signs - 12hr 01/23/17 01/23/17 01/23/17 04:30 05:00 05:30 Temperature 97.8 F Pulse Rate 70 61 56 L Respiratory 14 14 14 Rate Blood Pressure 130/58 125/56 138/58 O2 Sat by Pulse 99 100 Oximetry 01/23/17 01/23/17 01/23/17 06:00 06:30 07:00 Temperature Pulse Rate 72 69 56 L Respiratory 16 18 14 Rate Blood Pressure 119/63 119/63 122/59 O2 Sat by Pulse 100 100 100 Oximetry 01/23/17 01/23/17 01/23/17 07:30 07:54 08:00 Temperature 98.3 F Pulse Rate 69 79 Respiratory 15 10 L Rate Blood Pressure 133/60 133/60 O2 Sat by Pulse 100 99 Oximetry 01/23/17 01/23/17 01/23/17 08:30 09:00 09:30 Temperature Pulse Rate 68 68 81 Respiratory 10 L 10 L 14 Rate Blood Pressure 140/69 152/70 148/75 O2 Sat by Pulse 99 99 99 Oximetry 01/23/17 01/23/17 01/23/17 10:00 10:30 10:47 Temperature Pulse Rate 65 84 74 Respiratory 11 L 17 Rate Blood Pressure 153/72 165/81 165/81 O2 Sat by Pulse 99 100 Oximetry 01/23/17 01/23/17 01/23/17 11:00 11:30 12:00 Temperature Pulse Rate 64 98 H 67 Respiratory 11 L 21 13 Rate Blood Pressure 146/62 161/92 142/65 O2 Sat by Pulse 99 97 99 Oximetry Constitutional: other (awake, critically ill on vent) Eyes: non-icteric ENT: oropharynx moist Neck: supple Effort: normal Ascultation: Bilateral: clear Cardiovascular: regular rate and rhythm (no mrg) Gastrointestinal: normoactive bowel sounds, soft, non-tender, non-distended Integumentary: normal Extremities: no cyanosis, no edema Neurologic: normal mental status, non-focal exam, pupils equal and round, CN II- XII normal Psychiatric: mood appropriate, affect normal CBC and BMP: 01/23/17 01:35 01/23/17 03:37 ABG, PT/INR, D-dimer: ABG POC ABG pH 7.327 (7.35-7.45) L 01/23/17 08:54 POC ABG pCO2 44.9 (35-45) 01/23/17 08:54 POC ABG pO2 98 (80-105) 01/23/17 08:54 POC ABG HCO3 23.5 01/23/17 08:54 POC ABG Total CO2 25 01/23/17 08:54 POC ABG O2 Sat 97 01/23/17 08:54 PT/INR, D-dimer PT 13.4 Sec. (12.2-14.9) 01/21/17 21:24 INR 0.97 (0.87-1.13) 01/21/17 21:24 Abnormal lab findings: Abnormal Labs 01/22/17 01/22/17 01/22/17 01:25 01:25 03:58 WBC Hgb Hct [place] % (Auto) [place] # Seg Neutrophils % Seg Neutrophils # POC ABG pH POC ABG pCO2 POC ABG pO2 Potassium Chloride Carbon Dioxide POC Glucose Lactic Acid 3.50 H* Calcium Total Creatine Kinase CK-MB (CK-2) Troponin T 0.773 H* D 0.702 H* Cholesterol 273 H LDL Cholesterol Direct 187 H HDL Cholesterol 73 H 01/22/17 01/22/17 01/22/17 05:55 08:08 09:38 WBC Hgb Hct [place] % (Auto) [place] # Seg Neutrophils % Seg Neutrophils # POC ABG pH 7.472 H POC ABG pCO2 25.6 L POC ABG pO2 163 H Potassium Chloride Carbon Dioxide POC Glucose 127 H Lactic Acid Calcium Total Creatine Kinase 1076 H CK-MB (CK-2) Troponin T Cholesterol LDL Cholesterol Direct HDL Cholesterol 01/22/17 01/22/17 01/22/17 09:38 15:20 15:32 WBC Hgb Hct [place] % (Auto) [place] # Seg Neutrophils % Seg Neutrophils # POC ABG pH POC ABG pCO2 POC ABG pO2 Potassium Chloride Carbon Dioxide POC Glucose Lactic Acid 2.90 H* Calcium Total Creatine Kinase 1022 H 1649 H CK-MB (CK-2) 12.9 H 17.4 H Troponin T 0.484 H* D 0.435 H* Cholesterol LDL Cholesterol Direct HDL Cholesterol 01/23/17 01/23/17 01/23/17 01:35 03:37 04:23 WBC 12.6 H Hgb 11.6 L Hct 35.0 L D [place] % (Auto) 10.7 H [place] # 1.3 H Seg Neutrophils % 73.0 H Seg Neutrophils # 9.2 H POC ABG pH POC ABG pCO2 30.6 L POC ABG pO2 155 H Potassium 3.4 L D Chloride 110.0 H Carbon Dioxide 21 L POC Glucose Lactic Acid Calcium 7.6 L Total Creatine Kinase CK-MB (CK-2) Troponin T Cholesterol LDL Cholesterol Direct HDL Cholesterol 01/23/17 01/23/17 08:54 12:20 WBC Hgb Hct [place] % (Auto) [place] # Seg Neutrophils % Seg Neutrophils # POC ABG pH 7.327 L POC ABG pCO2 POC ABG pO2 Potassium Chloride Carbon Dioxide POC Glucose 68 L Lactic Acid Calcium Total Creatine Kinase CK-MB (CK-2) Troponin T Cholesterol LDL Cholesterol Direct HDL Cholesterol Chest x-ray: report reviewed, image reviewed (clear)
[2017-01-24] MEDS: LOPRESSOR IV SCH (03:29)
[2017-01-24] MEDS: ZOSYN/NS 4.5GM/100ML 4.5 GM/100 ML VIAL IV SCH (03:30)
[2017-01-24] MEDS: D5NS 1,000 ML IV SCH (03:30)
[2017-01-24] MEDS: VANCOMYCIN 1,250 MG in NACL 0.9% 250ML 250 ML IV SCH (03:34)
[2017-01-24] MEDS: HEPARIN SUB-Q SCH ×3 (05:51→23:42)
[2017-01-24] MEDS: ARICEPT PO SCH (10:35)
--- NOTE | 2017-01-24 11:26 | Progress Note ---
Assessment and Plan Assessment: Acute respiratory failure - extubated Seizure d/o Elevated troponin - pt denies chest pain; Joy trending down; ECG with no ischemic changes; likely secondary to recent seizure activity and suspected acute infection HTN Lactic acidosis / leukocytosis / ? UTI / ? sepsis - blood and sputum cultures in process RBBB HLP H/o dementia Plan: Cont ASA, statin, lopressor. IV ABX per primary. Cont supportive measures. Continue with conservative medical cardiac management given absence of cardiac symptoms and pt's multiple co-morbidities. Nothing further to add at this time from cardiac standpoint. Will see PRN. Recommend follow up in our office with Philly Priest NP, within 1-2 weeks of hospital discharge ([phone]). The patient has been seen in conjunction with Dr. Doss who agrees with the assessment and plan of care. Subjective Date of service: 01/24/17 Principal diagnosis: seizures; acute respiratory failure; elevated trop Interval history: Pt extubated, withdrawn, oriented to self. VSS. No family at bedside. Objective Last Vital Signs Temp 100.0 F H 01/24/17 10:16 Pulse 72 01/24/17 10:16 Resp 18 01/24/17 10:16 BP 127/58 01/24/17 05:09 Pulse Ox 93 01/24/17 10:16 - Physical Examination General: Other (withdrawn) HEENT: Positive: PERRL, Normocephaly, Mucus Membranes Moist Neck: Positive: neck supple, trachea midline Cardiac: Positive: Reg Rate and Rhythm, S1/S2 Lungs: Positive: clear to auscultation Neuro: Positive: Other (withdrawn) Abdomen: Positive: Soft, Active Bowel Sounds Skin: Positive: Clear. Negative: Rash, Wound Musculoskeletal: No Fluid Collection, No Pain, Normal Range of Motion Extremities: Absent: edema - Imaging and Cardiology EKG: image reviewed Echo: report reviewed (EF 50-55%, impaired relaxation) - Telemetry EKG Rhythm: Sinus Rhythm - EKG Sinus rhythms and dysrhythmias: sinus rhythm AV and intraventricular conduction: right bundle branch block Repolarization changes or abnormalities: nonspecific abnormality, ST segment, and/or T wave
--- NOTE | 2017-01-24 12:55 | Progress Note ---
Assessment and Plan Imp: 1. Seizure d/o w/ seizures 2. Acute respiratory failure, hypoxia 3. SIRS and lactic acidosis probably 2/2 #1 4. CHET 5. Dementia Rec: 1. Increased Keppra to 1 gram BID 2. Stop ABX 3. Can be discharged [id number]; will sign off; call with questions, or if new issues arise Plan of care reviewed w/ patient, he understands/agrees Subjective Date of service: 01/24/17 Principal diagnosis: seizures; acute respiratory failure; elevated trop Interval history: No events. Awake, alert. On RA. No complaints. Active Medications Al Hydrox/Mg Hydrox/Simethicone (Alum-Mag Hydrox-Simeth [phone]/5ml) 30 ml PO Q4H PRN PRN Reason: Indigestion Aspirin (Baby Aspirin) 81 mg PO QDAY [facility] Atorvastatin Calcium (Lipitor) 40 mg PO QHS [facility] Last Admin: 01/23/17 22:11 Dose: 40 mg Bisacodyl (Dulcolax) 10 mg [place] QDAY PRN PRN Reason: constipation unrelieved by MOM Donepezil HCl (Aricept) 10 mg PO QDAY [facility] Last Admin: 01/23/17 14:00 Dose: Not Given Famotidine (Pepcid) 20 mg IV BID [facility] Last Admin: 01/23/17 22:11 Dose: 20 mg Heparin Sodium (Porcine) (Heparin) 5,000 unit SUB-Q Q8HR [facility] Last Admin: 01/24/17 05:51 Dose: 5,000 unit Levetiracetam 1,000 mg/ Sodium (Chloride) 110 mls @ 400 mls/hr IV Q12HR [facility] Last Admin: 01/23/17 22:20 Dose: 400 mls/hr Dextrose/Sodium Chloride (D5ns) 1,000 mls @ 75 mls/hr IV DIRECT [facility] Last Admin: 01/24/17 03:30 Dose: 75 mls/hr Lorazepam (Ativan) 1 mg IV Q1H PRN PRN Reason: Seizures Magnesium Hydroxide (Milk Of Magnesia) 30 ml PO Q4H PRN PRN Reason: Constipation Metoprolol Tartrate (Lopressor) 12.5 mg PO BID [facility] Ondansetron HCl (Zofran) 4 mg IV Q6H PRN PRN Reason: nausea or vomiting Objective Vital Signs - 12hr 01/24/17 01/24/17 01/24/17 05:09 08:08 08:11 Temperature 98.2 F Pulse Rate 76 78 70 Respiratory 18 Rate Blood Pressure 127/58 O2 Sat by Pulse 92 96 Oximetry 01/24/17 01/24/17 10:00 10:16 Temperature 100.0 F H Pulse Rate 72 72 Respiratory 18 Rate Blood Pressure O2 Sat by Pulse 98 93 Oximetry Constitutional: no acute distress, alert Eyes: non-icteric ENT: oropharynx moist Neck: supple Effort: normal Ascultation: Bilateral: clear Cardiovascular: regular rate and rhythm (no mrg) Gastrointestinal: normoactive bowel sounds, soft, non-tender, non-distended Integumentary: normal Extremities: no cyanosis, no edema Neurologic: normal mental status, non-focal exam, pupils equal and round, CN II- XII normal Psychiatric: mood appropriate, affect normal CBC and BMP: 01/23/17 01:35 01/23/17 03:37 ABG, PT/INR, D-dimer: ABG POC ABG pH 7.327 (7.35-7.45) L 01/23/17 08:54 POC ABG pCO2 44.9 (35-45) 01/23/17 08:54 POC ABG pO2 98 (80-105) 01/23/17 08:54 POC ABG HCO3 23.5 01/23/17 08:54 POC ABG Total CO2 25 01/23/17 08:54 POC ABG O2 Sat 97 01/23/17 08:54 PT/INR, D-dimer PT 13.4 Sec. (12.2-14.9) 01/21/17 21:24 INR 0.97 (0.87-1.13) 01/21/17 21:24 Abnormal lab findings: Abnormal Labs 01/22/17 01/22/17 01/22/17 01:25 01:25 03:58 WBC Hgb Hct [place] % (Auto) [place] # Seg Neutrophils % Seg Neutrophils # POC ABG pH POC ABG pCO2 POC ABG pO2 Potassium Chloride Carbon Dioxide POC Glucose Lactic Acid 3.50 H* Calcium Total Creatine Kinase CK-MB (CK-2) Troponin T 0.773 H* D 0.702 H* Cholesterol 273 H LDL Cholesterol Direct 187 H HDL Cholesterol 73 H 01/22/17 01/22/17 01/22/17 05:55 08:08 09:38 WBC Hgb Hct [place] % (Auto) [place] # Seg Neutrophils % Seg Neutrophils # POC ABG pH 7.472 H POC ABG pCO2 25.6 L POC ABG pO2 163 H Potassium Chloride Carbon Dioxide POC Glucose 127 H Lactic Acid Calcium Total Creatine Kinase 1076 H CK-MB (CK-2) Troponin T Cholesterol LDL Cholesterol Direct HDL Cholesterol 01/22/17 01/22/17 01/22/17 09:38 15:20 15:32 WBC Hgb Hct [place] % (Auto) [place] # Seg Neutrophils % Seg Neutrophils # POC ABG pH POC ABG pCO2 POC ABG pO2 Potassium Chloride Carbon Dioxide POC Glucose Lactic Acid 2.90 H* Calcium Total Creatine Kinase 1022 H 1649 H CK-MB (CK-2) 12.9 H 17.4 H Troponin T 0.484 H* D 0.435 H* Cholesterol LDL Cholesterol Direct HDL Cholesterol 01/23/17 01/23/17 01/23/17 01:35 03:37 04:23 WBC 12.6 H Hgb 11.6 L Hct 35.0 L D [place] % (Auto) 10.7 H [place] # 1.3 H Seg Neutrophils % 73.0 H Seg Neutrophils # 9.2 H POC ABG pH POC ABG pCO2 30.6 L POC ABG pO2 155 H Potassium 3.4 L D Chloride 110.0 H Carbon Dioxide 21 L POC Glucose Lactic Acid Calcium 7.6 L Total Creatine Kinase CK-MB (CK-2) Troponin T Cholesterol LDL Cholesterol Direct HDL Cholesterol 01/23/17 01/23/17 08:54 12:20 WBC Hgb Hct [place] % (Auto) [place] # Seg Neutrophils % Seg Neutrophils # POC ABG pH 7.327 L POC ABG pCO2 POC ABG pO2 Potassium Chloride Carbon Dioxide POC Glucose 68 L Lactic Acid Calcium Total Creatine Kinase CK-MB (CK-2) Troponin T Cholesterol LDL Cholesterol Direct HDL Cholesterol Chest x-ray: report reviewed, image reviewed
--- NOTE | 2017-01-24 15:35 | Event Note ---
Date: 01/23/17 Patient was extubated in the afternoon, will transfer to telemetry.
[2017-01-24] MEDS: PEPCID IV SCH (23:39)
[2017-01-24] MEDS: LOPRESSOR PO SCH (23:40)
[2017-01-24] MEDS: KEPPRA 1,000 MG in NACL 0.9% 100 ML IV SCH ×2 (23:40)
[2017-01-25] MEDS: HEPARIN SUB-Q SCH ×3 (06:29→21:50)
[2017-01-25 09:35] LABS: Hemoglobin 12.1 gm/dl (11.8-15.2); Mean Corpuscular HGB Conc 33 % (32-34); Mean Corpuscular Hemoglobin 30 pg (28-32); Mean Corpuscular Volume 90 fl (84-94); Platelet Count 231 K/mm3 (140-440); Red Blood Count 4.12 M/mm3 (3.65-5.03); Red Cell Distribution Width 14.1 % (13.2-15.2); White Blood Count 11.4 K/mm3 (4.5-11.0)
[2017-01-25 09:49] LABS: Anion Gap 14 mmol/L; BUN/Creatinine Ratio 7; Blood Urea Nitrogen 6 mg/dL (9-20); Carbon Dioxide 25 mmol/L (22-30); Chloride 108.6 mmol/L (98-107); Glucose 107 mg/dL (75-100); Potassium 3.4 mmol/L (3.6-5.0); Sodium 144 mmol/L (137-145)
[2017-01-25] MEDS: LOPRESSOR PO SCH ×2 (10:35→21:51)
[2017-01-25] MEDS: BABY ASPIRIN PO SCH (10:35)
[2017-01-25] MEDS: PEPCID IV SCH (10:35)
[2017-01-25] MEDS: KEPPRA 1,000 MG in NACL 0.9% 100 ML IV SCH (10:36)
[2017-01-25] MEDS: ARICEPT PO SCH (10:36)
[2017-01-25] MEDS: D5NS 1,000 ML IV SCH ×2 (10:37→21:48)
--- NOTE | 2017-01-25 14:58 | Progress Note ---
Assessment and Plan Acute respiratory failure. - Admited to intensive care unit FOLLOWING ADMISSION. - Patient WAS intubated and sedated on admission in the ER. - Consulted customer experience retail clerk/ collection card clerk. extubated yesterday afternoon - cont breathing treatment as needed, transferred out of icu Breakthrough seizures. - He has been given Ativan iv, Keppra IV in the ER - Continue Keppra 1000mg iv q 12 and ativan iv prn. - Implemented seizure precautions. Neuro checks every 4 hours. - neuro consult pending Hypertension. Bp stable. Will monitor. Lactic acidosis of 3.4. This is most likely due to seizures. trended down. Elevated troponin - cardiology consulted, recommended medical mx Leukocytosis, likely reactive. - Review of medical records shows his WBC is mostly elevated. started on empiric antibiotics of Zosyn and Vanco until infection ruled out. - will d/c abx Dementia - continue Aricept DVT prophylaxis with heparin Full code status. Brief History: Patient is 61-year-old with history of seizure disorder, dementia and hypertension. He is a resident at snf facility. He was sent in from skilled facility because of recurrent prolonged seizures. He apparently had 2 episodes of seizures, one of 10 mins duration and second of 17 mins duration. He was given IV Ativan. Paramedics were called and he was brought to the emergency department. He had respiratory distress and was therefore intubated in the Emergency department. Radiological data: Ct head - no acute change Cxr 01/21/17 - stable small right pleural effusion Subjective Date of service: 01/24/17 Principal diagnosis: seizures; acute respiratory failure; elevated trop Interval history: Pt seen and examined no acute issue, follows simple commend oriented to self only Objective - Constitutional Vitals: Vital Signs - 12hr 01/25/17 01/25/17 01/25/17 04:14 04:15 07:46 Temperature 98.9 F Pulse Rate 64 66 76 Respiratory 20 Rate Blood Pressure 155/72 O2 Sat by Pulse 98 97 Oximetry 01/25/17 01/25/17 10:00 14:08 Temperature Pulse Rate Respiratory Rate Blood Pressure O2 Sat by Pulse 98 97 Oximetry General appearance: Present: no acute distress, well-nourished - EENT Eyes: PERRL, EOM intact ENT: hearing intact, clear oral mucosa Ears: bilateral: normal - Neck Neck: supple, normal ROM - Respiratory Respiratory effort: normal Respiratory: bilateral: CTA - Cardiovascular Rhythm: regular Heart Sounds: Present: S1 & S2. Absent: gallop, rub Extremities: pulses intact, No edema, normal color, Full ROM - Gastrointestinal General gastrointestinal: Present: soft, non-tender, non-distended, normal bowel sounds - Integumentary Integumentary: clear, warm, dry - Musculoskeletal Musculoskeletal: 1, strength equal bilaterally - Neurologic Neurologic: moves all extremities - Psychiatric Psychiatric: no appropriate mood/affect, no intact judgment & insight, no memory intact - Labs CBC & Chem 7: 01/25/17 09:07 01/25/17 09:07 Labs: Abnormal lab results 01/25/17 01/25/17 Range/Units 09:07 09:07 WBC 11.4 H (4.5-11.0) K/mm3 Potassium 3.4 L (3.6-5.0) mmol/L Chloride 108.6 H (98-107) mmol/L BUN 6 L (9-20) mg/dL Glucose 107 H (75-100) mg/dL Calcium 8.0 L (8.4-10.2) mg/dL
--- NOTE | 2017-01-25 16:09 | Consultation ---
History of Present Illness - Reason for Consult Consult date: 01/25/17 stroke - History of Present Illness stroke symptoms returned to baseline may go back to the [facility] no focal weakness/ alert/ not aphasic/ NIH discharge stroke scale is zero Spoke to Dr. Thompson. Past History Past Medical History: hypertension, seizures, other (dementia) Past Surgical History: No surgical history Social history: full code, other (Lives in SNF). denies: smoking, alcohol abuse Family history: hypertension Medications and Allergies Allergies Allergy/AdvReac Type Severity Reaction Status Date / Time No Known Allergies Allergy Verified 01/21/17 22:27 Home Medications Medication Instructions Recorded Confirmed Last Taken Type Aspirin 81 mg PO DAILY 05/06/16 01/22/17 05/06/16 History Donepezil [Aricept] 10 mg PO QDAY 05/06/16 01/22/17 05/06/16 History levETIRAcetam [Keppra TAB] 750 mg PO BID tablet 09/16/16 01/22/17 Unknown Rx Cholecalciferol (Vitamin D3) 1,000 unit PO DAILY 01/22/17 01/22/17 Unknown History [Children's Vitamin D3 1,000 unit CHEW] Sennosides [Senna] 17.2 mg PO DAILY 01/22/17 01/22/17 Unknown History Active Meds: Active Medications Al Hydrox/Mg Hydrox/Simethicone (Alum-Mag Hydrox-Simeth [phone]/5ml) 30 ml PO Q4H PRN PRN Reason: Indigestion Aspirin (Baby Aspirin) 81 mg PO QDAY [facility] Last Admin: 01/25/17 10:35 Dose: 81 mg Atorvastatin Calcium (Lipitor) 40 mg PO QHS [facility] Last Admin: 01/24/17 23:40 Dose: 40 mg Bisacodyl (Dulcolax) 10 mg [place] QDAY PRN PRN Reason: constipation unrelieved by MOM Donepezil HCl (Aricept) 10 mg PO QDAY [facility] Last Admin: 01/25/17 10:36 Dose: 10 mg Famotidine (Pepcid) 20 mg PO BID [facility] Heparin Sodium (Porcine) (Heparin) 5,000 unit SUB-Q Q8HR [facility] Last Admin: 01/25/17 06:29 Dose: 5,000 unit Dextrose/Sodium Chloride (D5ns) 1,000 mls @ 75 mls/hr IV DIRECT [facility] Last Admin: 01/25/17 10:37 Dose: 75 mls/hr Levetiracetam (Keppra) 1,000 mg PO BID [facility] Lorazepam (Ativan) 1 mg IV Q1H PRN PRN Reason: Seizures Magnesium Hydroxide (Milk Of Magnesia) 30 ml PO Q4H PRN PRN Reason: Constipation Metoprolol Tartrate (Lopressor) 12.5 mg PO BID [facility] Last Admin: 01/25/17 10:35 Dose: 12.5 mg Ondansetron HCl (Zofran) 4 mg IV Q6H PRN PRN Reason: nausea or vomiting Potassium Chloride (K-Dur) 20 meq PO QDAY [facility] Exam - Constitutional Vitals: Temp Pulse Resp BP Pulse Ox 98.9 F 76 20 155/72 97 01/25/17 04:14 01/25/17 07:46 01/25/17 04:14 01/25/17 04:14 01/25/17 14:08 Results - Labs CBC & Chem 7: 01/25/17 09:07 01/25/17 09:07 Labs: Abnormal lab results 01/25/17 01/25/17 Range/Units 09:07 09:07 WBC 11.4 H (4.5-11.0) K/mm3 Potassium 3.4 L (3.6-5.0) mmol/L Chloride 108.6 H (98-107) mmol/L BUN 6 L (9-20) mg/dL Glucose 107 H (75-100) mg/dL Calcium 8.0 L (8.4-10.2) mg/dL
[2017-01-25] MEDS: K-DUR PO SCH (17:47)
--- NOTE | 2017-01-25 18:19 | Progress Note ---
Assessment and Plan /Sepsis, likely from aspiration pneumonia. - Patient now meets the criteria with leukocytosis, tachycardia and fever, possibly from aspiration - Review of medical records shows his WBC is mostly elevated. started on empiric antibiotics of Zosyn and Vanco following admission. -His antibiotic was discontinued as WBC was trended down and no specific source of infection was found on admission - He is spiking fever since last night following discontinuing antibiotics - Chest x-ray obtained on 01/23/2017 showed newly developed left upper lobe infiltrate versus pneumonia - Cannot rule out aspiration event, we'll place him back on Zosyn - We will get speech eval for possible aspiration /Breakthrough seizures. - He has been given Ativan iv, Keppra IV in the ER - Continue Keppra 1000mg iv q 12 and ativan iv prn. - Implemented seizure precautions. Neuro checks every 4 hours. - neuro consulted, will get MRA of brain /Acute respiratory failure. - Admited to intensive care unit FOLLOWING ADMISSION. - Patient WAS intubated and sedated on admission in the ER. - Consulted special warfare combatant crewman/ [id number] armor crewman. extubated on 01/24/17 - cont breathing treatment as needed, /Hypertension. Bp stable. Will monitor. /Lactic acidosis of 3.4. This is most likely due to seizures. trended down. /Elevated troponin - cardiology consulted, recommended medical mx /Dementia - continue Aricept /Hypokalemia, replace /DVT prophylaxis with heparin /Full code status. Brief History: Patient is 61-year-old with history of seizure disorder, dementia and hypertension. He is a resident at [facility] facility. He was sent in from skilled facility because of recurrent prolonged seizures. He apparently had 2 episodes of seizures, one of 10 mins duration and second of 17 mins duration. He was given IV Ativan. Paramedics were called and he was brought to the emergency department. He had respiratory distress and was therefore intubated in the Emergency department. Radiological data: Ct head - no acute change Cxr 01/21/17 - stable small right pleural effusion Chest x-ray 01/23/2017- new focal opacity on left upper lobe Subjective Date of service: 01/25/17 Principal diagnosis: seizures; acute respiratory failure; elevated trop Interval history: Pt seen and examined no acute issue, follows simple commend oriented to self only, patient is spiking low-grade fever Objective - Exam Narrative Exam: General appearance: Present: no acute distress, well-nourished - EENT Eyes: PERRL, EOM intact ENT: hearing intact, clear oral mucosa Ears: bilateral: normal - Neck Neck: supple, normal ROM - Respiratory Respiratory effort: normal Respiratory: bilateral: CTA - Cardiovascular Rhythm: regular Heart Sounds: Present: S1 & S2. Absent: gallop, rub Extremities: pulses intact, No edema, normal color, Full ROM - Gastrointestinal General gastrointestinal: Present: soft, non-tender, non-distended, normal bowel sounds - Integumentary Integumentary: clear, warm, dry - Musculoskeletal Musculoskeletal: 1, strength equal bilaterally - Neurologic Neurologic: moves all extremities - Psychiatric Psychiatric: no appropriate mood/affect, no intact judgment & insight, no memory intact - Constitutional Vitals: Vital Signs - 12hr 01/25/17 01/25/17 01/25/17 07:46 10:00 14:08 Pulse Rate 76 O2 Sat by Pulse 98 97 Oximetry - Labs CBC & Chem 7: 01/25/17 09:07 01/25/17 09:07 Labs: Abnormal lab results 01/25/17 01/25/17 Range/Units 09:07 09:07 WBC 11.4 H (4.5-11.0) K/mm3 Potassium 3.4 L (3.6-5.0) mmol/L Chloride 108.6 H (98-107) mmol/L BUN 6 L (9-20) mg/dL Glucose 107 H (75-100) mg/dL Calcium 8.0 L (8.4-10.2) mg/dL
[2017-01-25] MEDS: ZOSYN/NS 4.5GM/100ML 4.5 GM/100 ML VIAL IV SCH (21:49)
[2017-01-25] MEDS: KEPPRA PO SCH (21:51)
[2017-01-25] MEDS: PEPCID PO SCH (21:51)
[2017-01-26] MEDS: HEPARIN SUB-Q SCH ×3 (06:07→22:14)
[2017-01-26] MEDS: ZOSYN/NS 4.5GM/100ML 4.5 GM/100 ML VIAL IV SCH ×3 (06:09→23:02)
[2017-01-26] MEDS: K-DUR PO SCH (10:05)
[2017-01-26] MEDS: KEPPRA PO SCH ×2 (10:05→22:15)
[2017-01-26] MEDS: BABY ASPIRIN PO SCH (10:06)
[2017-01-26] MEDS: ARICEPT PO SCH (10:06)
[2017-01-26] MEDS: LOPRESSOR PO SCH ×2 (10:09→22:15)
[2017-01-26] MEDS: PEPCID PO SCH ×2 (10:10→22:14)
[2017-01-26] MEDS: D5NS 1,000 ML IV SCH (15:16)
--- NOTE | 2017-01-26 17:27 | Progress Note ---
Assessment and Plan /Sepsis, likely from aspiration pneumonia. - Patient met the criteria with leukocytosis, tachycardia and fever, possibly from aspiration - Review of medical records shows his WBC is mostly elevated. started on empiric antibiotics of Zosyn and Vanco following admission. -His antibiotic was discontinued as WBC was trended down and no specific source of infection was found on admission - He is spiking fever since last night following discontinuing antibiotics - Chest x-ray obtained on 01/23/2017 showed newly developed left upper lobe infiltrate versus pneumonia - Cannot rule out aspiration event, placed him back on Zosyn since 01/25/17 - Speech recommended NPO and barrium swallow study scheduled for tomorrow /Possible aspiration - Speech recommended NPO and barrium swallow study scheduled for tomorrow /Breakthrough seizures. - He has been given Ativan iv, Keppra IV in the ER - Continue Keppra 1000mg iv q 12 and ativan iv prn. - Implemented seizure precautions. Neuro checks every 4 hours. - neuro following, MRA of brain pending /Acute respiratory failure. - Admited to intensive care unit FOLLOWING ADMISSION. - Patient WAS intubated and sedated on admission in the ER. - Consulted awning hanger/ ovens supervisor. extubated on 01/24/17 - cont breathing treatment as needed, /Hypertension. Bp stable. Will monitor. /Lactic acidosis of 3.4. This is most likely due to seizures. trended down. /Elevated troponin - cardiology consulted, recommended medical mx /Dementia - continue Aricept /Hypokalemia, replaced /DVT prophylaxis with heparin /Full code status. Brief History: Patient is 61-year-old with history of seizure disorder, dementia and hypertension. He is a resident at longterm facility. He was sent in from skilled facility because of recurrent prolonged seizures. He apparently had 2 episodes of seizures, one of 10 mins duration and second of 17 mins duration. He was given IV Ativan. Paramedics were called and he was brought to the emergency department. He had respiratory distress and was therefore intubated in the Emergency department. Radiological data: Ct head - no acute change Cxr 01/21/17 - stable small right pleural effusion Chest x-ray 01/23/2017- new focal opacity on left upper lobe Subjective Date of service: 01/26/17 Principal diagnosis: seizures; acute respiratory failure; elevated trop Interval history: Pt seen and examined no acute issue, follows simple commend oriented to self only, had speech eval today and ST recommended modified barrium swallow study Objective - Exam Narrative Exam: General appearance: Present: no acute distress, well-nourished - EENT Eyes: PERRL, EOM intact ENT: hearing intact, clear oral mucosa Ears: bilateral: normal - Neck Neck: supple, normal ROM - Respiratory Respiratory effort: normal Respiratory: bilateral: CTA - Cardiovascular Rhythm: regular Heart Sounds: Present: S1 & S2. Absent: gallop, rub Extremities: pulses intact, No edema, normal color, Full ROM - Gastrointestinal General gastrointestinal: Present: soft, non-tender, non-distended, normal bowel sounds - Integumentary Integumentary: clear, warm, dry - Musculoskeletal Musculoskeletal: 1, strength equal bilaterally - Neurologic Neurologic: moves all extremities - Psychiatric Psychiatric: no appropriate mood/affect, no intact judgment & insight, no memory intact - Constitutional Vitals: Vital Signs - 12hr 01/26/17 01/26/17 01/26/17 08:28 10:00 10:22 Temperature 99.1 F Pulse Rate 53 L 53 L Pulse Rate [ 53 L Left Radial] Respiratory 28 H 20 Rate Blood Pressure 164/75 O2 Sat by Pulse 97 97 97 Oximetry - Labs CBC & Chem 7: 01/25/17 09:07 01/27/17 09:37
[2017-01-26] MEDS: KCL 10MEQ/100ML 10 MEQ/100 ML BAG IV SCH ×2 (20:46→22:14)
[2017-01-27] MEDS: HEPARIN SUB-Q SCH ×3 (05:11→22:17)
[2017-01-27] MEDS: ZOSYN/NS 4.5GM/100ML 4.5 GM/100 ML VIAL IV SCH ×3 (05:12→22:19)
[2017-01-27 10:33] LABS: Anion Gap 15 mmol/L; BUN/Creatinine Ratio 6; Blood Urea Nitrogen 5 mg/dL (9-20); Carbon Dioxide 26 mmol/L (22-30); Chloride 107.6 mmol/L (98-107); Glucose 76 mg/dL (75-100); Potassium 3.8 mmol/L (3.6-5.0); Sodium 145 mmol/L (137-145)
--- NOTE | 2017-01-27 11:06 | Fluoroscopy Report ---
MODIFIED BARIUM SWALLOW History: dysphagia. Findings: Video radiography was provided by the radiologist for speech therapy to assess the swallowing mechanism. Please refer to the formal report by speech therapy. Impression: Successful modified barium swallow.
[2017-01-27] MEDS: D5NS 1,000 ML IV SCH (14:43)
[2017-01-27] MEDS: K-DUR PO SCH (14:47)
[2017-01-27] MEDS: BABY ASPIRIN PO SCH (14:47)
[2017-01-27] MEDS: KEPPRA PO SCH ×2 (14:47→22:18)
[2017-01-27] MEDS: ARICEPT PO SCH (14:47)
[2017-01-27] MEDS: APRESOLINE PO SCH ×2 (14:48→22:17)
[2017-01-27] MEDS: LOPRESSOR PO SCH ×2 (14:48→22:18)
[2017-01-27] MEDS: PEPCID PO SCH ×2 (14:48→22:17)
--- NOTE | 2017-01-27 17:33 | Progress Note ---
Assessment and Plan /Possible aspiration - s/p Barrium swallow study today - speech therapy recommended pureed diet /Sepsis, likely from aspiration pneumonia. - Patient met the criteria with leukocytosis, tachycardia and fever, possibly from aspiration - Review of medical records shows his WBC is mostly elevated. started on empiric antibiotics of Zosyn and Vanco following admission. -His antibiotic was discontinued as WBC was trended down and no specific source of infection was found on admission - He spiked fever on 01/24/17 following discontinuing antibiotics - Chest x-ray obtained on 01/23/2017 showed newly developed left upper lobe infiltrate - Cannot rule out aspiration event, placed him back on Zosyn since 01/25/17 /Breakthrough seizures. - He has been given Ativan iv, Keppra IV in the ER - Continue Keppra 1000mg po q12h and ativan iv prn. - Implemented seizure precautions. Neuro checks every 4 hours. - neuro following, MRA of brain could not be obtained as his history could not be confirmed with family /Acute respiratory failure. - Admited to intensive care unit FOLLOWING ADMISSION. - Patient WAS intubated and sedated on admission in the ER. - Consulted head gauge unit operator/ reflexologist. extubated on 01/24/17 - cont breathing treatment as needed, /Hypertension. Bp stable. Will monitor. /Lactic acidosis of 3.4. This is most likely due to seizures. trended down. /Elevated troponin - cardiology consulted, recommended medical mx /Dementia - continue Aricept /Hypokalemia, replaced /DVT prophylaxis with heparin /Full code status. will transfer to [facility] Brief History: Patient is 61-year-old with history of seizure disorder, dementia and hypertension. He is a resident at long term facility. He was sent in from skilled facility because of recurrent prolonged seizures. He apparently had 2 episodes of seizures, one of 10 mins duration and second of 17 mins duration. He was given IV Ativan. Paramedics were called and he was brought to the emergency department. He had respiratory distress and was therefore intubated in the Emergency department. Radiological data: Ct head - no acute change Cxr 01/21/17 - stable small right pleural effusion Chest x-ray 01/23/2017- new focal opacity on left upper lobe Barium swallow study 01/27/17 Subjective Date of service: 10/07/17 Principal diagnosis: seizures; acute respiratory failure; elevated trop Interval history: Pt seen and examined no acute issue, follows simple commend oriented to self only, s/p modified barrium swallow study today Objective - Exam Narrative Exam: General appearance: Present: no acute distress, well-nourished - EENT Eyes: PERRL, EOM intact ENT: hearing intact, clear oral mucosa Ears: bilateral: normal - Neck Neck: supple, normal ROM - Respiratory Respiratory effort: normal Respiratory: bilateral: CTA - Cardiovascular Rhythm: regular Heart Sounds: Present: S1 & S2. Absent: gallop, rub Extremities: pulses intact, No edema, normal color, Full ROM - Gastrointestinal General gastrointestinal: Present: soft, non-tender, non-distended, normal bowel sounds - Integumentary Integumentary: clear, warm, dry - Musculoskeletal Musculoskeletal: 1, strength equal bilaterally - Neurologic Neurologic: moves all extremities - Psychiatric Psychiatric: no appropriate mood/affect, no intact judgment & insight, no memory intact - Constitutional Vitals: Vital Signs - 12hr 01/27/17 01/27/17 01/27/17 09:54 10:00 14:00 Temperature 98.8 F Pulse Rate 67 70 55 L Respiratory 18 Rate Blood Pressure 163/78 178/79 O2 Sat by Pulse 98 98 98 Oximetry - Labs CBC & Chem 7: 01/25/17 09:07 01/27/17 09:37 Labs: Abnormal lab results 01/27/17 Range/Units 09:37 Chloride 107.6 H (98-107) mmol/L BUN 5 L (9-20) mg/dL Calcium 8.0 L (8.4-10.2) mg/dL Magnesium 1.60 L (1.7-2.3) mg/dL
[2017-01-28] MEDS: HEPARIN SUB-Q SCH ×2 (06:20→22:17)
[2017-01-28] MEDS: APRESOLINE PO SCH ×2 (06:20→22:17)
[2017-01-28] MEDS: ZOSYN/NS 4.5GM/100ML 4.5 GM/100 ML VIAL IV SCH ×4 (07:04→22:17)
[2017-01-28] MEDS: BABY ASPIRIN PO SCH (10:27)
[2017-01-28] MEDS: ARICEPT PO SCH (10:27)
[2017-01-28] MEDS: PEPCID PO SCH ×2 (10:27→22:16)
[2017-01-28] MEDS: KEPPRA PO SCH ×2 (10:27→22:16)
[2017-01-28] MEDS: K-DUR PO SCH (10:27)
[2017-01-28] MEDS: LOPRESSOR PO SCH ×2 (10:27→22:16)
--- NOTE | 2017-01-28 12:26 | Cat Scan Report ---
CT HEAD WITHOUT CONTRAST: HISTORY: CVA. TECHNIQUE: Sequential CT images without contrast. FINDINGS: Images obtained show bilateral prominence of the sulci and ventricles. There are no abnormal intra- or extra-axial blood or fluid collections. There are no focal masses or evidence of mass effect. The brown white matter differentiation appears within normal limits. Regions of periventricular decreased attenuation are consistent with microangiopathic ischemic disease. The posterior fossa structures including the fourth ventricle, cerebellum, and brainstem appear normal. IMPRESSION: Evidence of atrophy and microangiopathic ischemic disease. No acute intracranial process noted. No significant change since 01/21/17.
--- NOTE | 2017-01-28 17:02 | Progress Note ---
Assessment and Plan /Sepsis, likely from aspiration pneumonia. - Patient met the criteria with leukocytosis, tachycardia and fever, possibly from aspiration - Review of medical records shows his WBC is mostly elevated. started on empiric antibiotics of Zosyn and Vanco following admission. -His antibiotic was discontinued as WBC was trended down and no specific source of infection was found on admission - He spiked fever on 01/24/17 following discontinuing antibiotics - Chest x-ray obtained on 01/23/2017 showed newly developed left upper lobe infiltrate - Cannot rule out aspiration event, placed him back on Zosyn since 01/25/17 /Possible aspiration - s/p Barrium swallow study on 01/717 - speech therapy recommended pureed diet, tolerating /Breakthrough seizures. - He has been given Ativan iv, Keppra IV in the ER - Continue Keppra 1000mg po q12h and ativan iv prn. - Implemented seizure precautions. Neuro checks every 4 hours. - neuro following, MRA of brain could not be obtained as his history could not be confirmed with family - Repeat Ct head today showed no new process and no change from the prior one /Acute respiratory failure. - Admited to intensive care unit FOLLOWING ADMISSION. - Patient WAS intubated and sedated on admission in the ER. - Consulted wildlife and game protector/ sanitation officer. extubated on 01/24/17 - cont breathing treatment as needed, /Hypertension. Bp stable. Will monitor. /Lactic acidosis of 3.4. This is most likely due to seizures. trended down. /Elevated troponin - cardiology consulted, recommended medical mx /Dementia - continue Aricept /Hypokalemia, replaced /DVT prophylaxis with heparin /Full code status. [facility] Brief History: Patient is 61-year-old with history of seizure disorder, dementia and hypertension. He is a resident at [facility] facility. He was sent in from skilled facility because of recurrent prolonged seizures. He apparently had 2 episodes of seizures, one of 10 mins duration and second of 17 mins duration. He was given IV Ativan. Paramedics were called and he was brought to the emergency department. He had respiratory distress and was therefore intubated in the Emergency department. Radiological data: Ct head - no acute change Cxr 01/21/17 - stable small right pleural effusion Chest x-ray 01/23/2017- new focal opacity on left upper lobe Barium swallow study 01/27/17 Ct head 01/28/17 - no new change Disposition - back to [facility] Subjective Date of service: 01/28/17 Principal diagnosis: seizures; acute respiratory failure; elevated trop Interval history: Pt seen and examined no acute issue, follows simple commend oriented to self only, tolerating diet Objective - Exam Narrative Exam: General appearance: Present: no acute distress, well-nourished - EENT Eyes: PERRL, EOM intact ENT: hearing intact, clear oral mucosa Ears: bilateral: normal - Neck Neck: supple, normal ROM - Respiratory Respiratory effort: normal Respiratory: bilateral: CTA - Cardiovascular Rhythm: regular Heart Sounds: Present: S1 & S2. Absent: gallop, rub Extremities: pulses intact, No edema, normal color, Full ROM - Gastrointestinal General gastrointestinal: Present: soft, non-tender, non-distended, normal bowel sounds - Integumentary Integumentary: clear, warm, dry - Musculoskeletal Musculoskeletal: 1, strength equal bilaterally - Neurologic Neurologic: moves all extremities - Psychiatric Psychiatric: no appropriate mood/affect, no intact judgment & insight, no memory intact - Constitutional Vitals: Vital Signs - 12hr 01/28/17 10:00 Pulse Rate 75 O2 Sat by Pulse 98 Oximetry - Labs CBC & Chem 7: 01/25/17 09:07 01/27/17 09:37
[2017-01-29] MEDS: APRESOLINE PO SCH ×3 (05:53→15:02)
[2017-01-29] MEDS: HEPARIN SUB-Q SCH ×3 (05:53→15:02)
[2017-01-29] MEDS: ZOSYN/NS 4.5GM/100ML 4.5 GM/100 ML VIAL IV SCH ×2 (08:21→15:03)
[2017-01-29] MEDS: ARICEPT PO SCH (10:11)
[2017-01-29] MEDS: KEPPRA PO SCH (10:11)
[2017-01-29] MEDS: LOPRESSOR PO SCH (10:16)
[2017-01-29] MEDS: BABY ASPIRIN PO SCH (10:16)
[2017-01-29] MEDS: K-DUR PO SCH (10:16)
[2017-01-29] MEDS: PEPCID PO SCH (10:17)
--- NOTE | 2017-01-29 15:58 | Discharge Summary ---
Providers - Providers Date of Admission: 01/22/17 00:07 Date of discharge: 01/29/17 Attending physician: BART MARTINEZ 01/24/17 16:54 Consult to Physician [CONS] Routine Consulting Provider: LAURIE SIMMONS Reason For Exam: seizure Place consult to:: neurology Notified:: service 01/25/17 16:37 Speech Therapy Evaluation and Treat [CONS] Routine Reason For Exam: aspiration Primary care physician: CDL DEDICATED TRUCK DRIVER Hospitalization Condition: Serious Hospital course: Discharge diagnosis and management: /Sepsis, likely from aspiration pneumonia. - Patient met the criteria with leukocytosis, tachycardia and fever, possibly from aspiration - Review of medical records shows his WBC is mostly elevated. started on empiric antibiotics of Zosyn and Vanco following admission. -His antibiotic was discontinued as WBC was trended down and no specific source of infection was found on admission - He spiked fever on 01/24/17 following discontinuing antibiotics - Chest x-ray obtained on 01/23/2017 showed newly developed left upper lobe infiltrate - Cannot rule out aspiration event, placed him back on Zosyn since 01/25/17 /Possible aspiration - s/p Barrium swallow study on 01/717 - speech therapy recommended pureed diet, tolerating /Breakthrough seizures. - He has been given Ativan iv, Keppra IV in the ER - Continue Keppra 1000mg po q12h and ativan iv prn. - Implemented seizure precautions. Neuro checks every 4 hours. - neuro following, MRA of brain could not be obtained as his history could not be confirmed with family - Repeat Ct head today showed no new process and no change from the prior one /Acute respiratory failure. - Admited to intensive care unit FOLLOWING ADMISSION. - Patient WAS intubated and sedated on admission in the ER. - Consulted health specialist/ raiser helper. extubated on 01/24/17 - cont breathing treatment as needed, /Hypertension. Bp stable. Will monitor. /Lactic acidosis of 3.4. This is most likely due to seizures. trended down. /Elevated troponin - cardiology consulted, recommended medical mx /Dementia - continue Aricept /Hypokalemia, replaced /DVT prophylaxis with heparin /Full code status. will transfer to [facility] Brief History: Patient is 61-year-old with history of seizure disorder, dementia and hypertension. He is a resident at [facility] facility. He was sent in from skilled facility because of recurrent prolonged seizures. He apparently had 2 episodes of seizures, one of 10 mins duration and second of 17 mins duration. He was given IV Ativan. Paramedics were called and he was brought to the emergency department. He had respiratory distress and was therefore intubated in the Emergency department. Radiological data: Ct head - no acute change Cxr 01/21/17 - stable small right pleural effusion Chest x-ray 01/23/2017- new focal opacity on left upper lobe Barium swallow study 01/27/17 Ct head 01/28/17 - no new change Disposition - back to snf Disposition: [id number] Time spent for discharge: 32 minutes Core Measure Documentation - Palliative Care Palliative Care/ Comfort Measures: Not Applicable - Core Measures Any of the following diagnoses?: history only Exam - Physical Exam Narrative exam: General appearance: Present: no acute distress, well-nourished - EENT Eyes: PERRL, EOM intact ENT: hearing intact, clear oral mucosa Ears: bilateral: normal - Neck Neck: supple, normal ROM - Respiratory Respiratory effort: normal Respiratory: bilateral: CTA - Cardiovascular Rhythm: regular Heart Sounds: Present: S1 & S2. Absent: gallop, rub Extremities: pulses intact, No edema, normal color, Full ROM - Gastrointestinal General gastrointestinal: Present: soft, non-tender, non-distended, normal bowel sounds - Integumentary Integumentary: clear, warm, dry - Musculoskeletal Musculoskeletal: 1, strength equal bilaterally - Neurologic Neurologic: moves all extremities - Psychiatric Psychiatric: no appropriate mood/affect, no intact judgment & insight, no memory intact - Constitutional Vitals: Temp Pulse Resp BP Pulse Ox 98.0 F 65 20 128/58 100 01/29/17 12:48 01/29/17 12:48 01/29/17 12:48 01/29/17 15:02 01/29/17 12:48 Plan Activity: up only with assistance Weight Bearing Status: Non-Weight Bearing Diet: per dietitian instruction Follow up with: PRIMARY CARE, [Primary Care Provider] - 3-5 Days Prescriptions: AtorvaSTATin [Lipitor] 40 mg PO QHS #30 tablet Amoxicillin/K Clav Tab [Augmentin 875 mg] 1 tab PO Q12HR #10 tab Aspirin [Aspirin BABY CHEW TAB] 81 mg PO QDAY #30 tab.chew Donepezil [Aricept] 10 mg PO QDAY #30 tablet Famotidine [Pepcid] 20 mg PO BID #60 tablet levETIRAcetam [Keppra TAB] 1,000 mg PO BID #60 tablet Metoprolol [Lopressor TAB] 12.5 mg PO BID #60 tablet Potassium Chloride [K-Dur] 20 meq PO QDAY #20 tablet
[2017-01-30 11:22] VITALS: BP 130/68
== END 2017-01-29 19:00 | disposition home or self-care (01) | DRG 871 ==
LOC: ED 21:00 → CC1 01-22 00:07 → 4A 01-23 19:59
PROVIDERS: ADMIT Internal Medicine; ATTEND Internal Medicine
PROC: 5A1945Z Respiratory Ventilation, 24-96 Consecutive Hours (ICD-10-PCS; principal; 2017-01-21)
PROC: 0BH17EZ Insertion of Endotracheal Airway into Trachea, Via Natural or Artificial Opening (ICD-10-PCS; 2017-01-21)
PROC: 4A033R1 Measurement of Arterial Saturation, Peripheral, Percutaneous Approach (ICD-10-PCS; 2017-01-23)
DX: A41.9 Sepsis, unspecified organism (principal); J96.01 Acute respiratory failure with hypoxia; J69.0 Pneumonitis due to inhalation of food and vomit; J96.02 Acute respiratory failure with hypercapnia; E87.2 Acidosis; N17.9 Acute kidney failure, unspecified; J90 Pleural effusion, not elsewhere classified; I10 Essential (primary) hypertension; F03.90 Unspecified dementia, unspecified severity, without behavioral disturbance, psychotic disturbance, mood disturbance, and anxiety; G40.901 Epilepsy, unspecified, not intractable, with status epilepticus; I45.10 Unspecified right bundle-branch block; E78.5 Hyperlipidemia, unspecified; E87.6 Hypokalemia; Z82.49 Family history of ischemic heart disease and other diseases of the circulatory system; Z79.82 Long term (current) use of aspirin
CPT/HCPCS: 36415; 36600; 70450; 71010; 74230; 80048; 80053; 80061; 81001; 82140; 82550; 82553; 82803; 82962; 83735; 84443; 84484; 85007; 85025; 85027; 85610; 87040; 87070; 87205; 93005; 93010; 93306; 94002; 94003; 94760; 96365; 96366; 96367; 96375; 99291; A9270-GY; J0696; J1644; J1953; J2250; J2543; J3010; J3370; J3480; J7030; J7040; J7042; J7050

== ENCOUNTER 2017-03-30 00:05 | Inpatient (IN) | payer MEDICAID ==
[2017-03-30] MEDS ORDERED: NACL 0.9% 1000 ML 2,000 ML IV ONE (00:35)
[2017-03-30] MEDS ORDERED: NACL 0.9% 1000 ML 2,000 ML ONE (00:38)
[2017-03-30] MEDS ORDERED: NARCAN 2 MG/2 ML ONE (00:39)
[2017-03-30] MEDS ORDERED: AMIDATE IV ONE ×2 (00:40→00:46)
[2017-03-30] MEDS ORDERED: NACL 0.9% 1000 ML 1,000 ML ONE (00:40)
[2017-03-30] MEDS ORDERED: QUELICIN IV ONE (00:40)
[2017-03-30] MEDS ORDERED: QUELICIN ONE (00:46)
[2017-03-30] MEDS ORDERED: NACL 0.9% 500 ML 500 ML IV ONE (00:59)
[2017-03-30] MEDS ORDERED: TYLENOL PR STA (00:59)
--- NOTE | 2017-03-30 01:09 | Emergency Department Report ---
ED Altered Mental Status HPI - General Chief Complaint: Fever Stated Complaint: SEIZURE Time Seen by Provider: 03/30/17 00:54 Source: EMS, RN notes reviewed Mode of arrival: Stretcher Limitations: Altered Mental Status - History of Present Illness Initial Comments: 61 YO MALE BROUGHT FROM [facility] FOR SEIZURE . PT GIVEN ATIVAN 1MG AND VERSED 2MG BY EMS. PT WAS IN RESPIRATORY FAILURE AND NEVER REGAINED CONSCIOUSNESS. HIS SATURATION WAS 87% ON A NONREBREATHER AND THUS PT WAS SUCTIONED SATURATION CAME UP TO 86 % BUT WENT BACK DOWN WHEN SECRETIONS POOLED IN HIS MOUTH. RESPIRATORY WAS CALLED AND PT WAS INTUBATED BY ME. MD Complaint: altered mental status -: Sudden Severity: severe Consistency of Symptoms: constant Context: seizure disorder Treatments Prior to Arrival: other pre-hosp med (VERSED AND ATIVAN) - Related Data Home Medications Medication Instructions Recorded Confirmed Last Taken Cholecalciferol (Vitamin D3) 1,000 unit PO DAILY 01/22/17 01/22/17 Unknown [Children's Vitamin D3 1,000 unit CHEW] Sennosides [Senna] 17.2 mg PO DAILY 01/22/17 01/22/17 Unknown Previous Rx's Medication Instructions Recorded Last Taken Type Amoxicillin/K Clav Tab [Augmentin 1 tab PO Q12HR #10 tab 01/29/17 Unknown Rx 875 mg] Aspirin [Aspirin BABY CHEW TAB] 81 mg PO QDAY #30 tab.chew 01/29/17 Unknown Rx AtorvaSTATin [Lipitor] 40 mg PO QHS #30 tablet 01/29/17 Unknown Rx Donepezil [Aricept] 10 mg PO QDAY #30 tablet 01/29/17 Unknown Rx Famotidine [Pepcid] 20 mg PO BID #60 tablet 01/29/17 Unknown Rx Metoprolol [Lopressor TAB] 12.5 mg PO BID #60 tablet 01/29/17 Unknown Rx Potassium Chloride [K-Dur] 20 meq PO QDAY #20 tablet 01/29/17 Unknown Rx levETIRAcetam [Keppra TAB] 1,000 mg PO BID #60 tablet 01/29/17 Unknown Rx Allergies Allergy/AdvReac Type Severity Reaction Status Date / Time No Known Allergies Allergy Verified 01/21/17 22:27 ED Review of Systems ROS: Stated complaint: SEIZURE Other details as noted in HPI Comment: Unobtainable due to pts medical conditions (ams and respiratory failure) ED Past Medical Hx - Past Medical History Hx Hypertension: Yes Hx Congestive Heart Failure: No Hx Diabetes: No Hx Seizures: Yes Hx Asthma: No Hx COPD: No Hx Dementia: Yes - Social History Smoking Status: Unknown if ever smoked - Medications Home Medications: Home Medications Medication Instructions Recorded Confirmed Last Taken Type Cholecalciferol (Vitamin D3) 1,000 unit PO DAILY 01/22/17 01/22/17 Unknown History [Children's Vitamin D3 1,000 unit CHEW] Sennosides [Senna] 17.2 mg PO DAILY 01/22/17 01/22/17 Unknown History Amoxicillin/K Clav Tab [Augmentin 1 tab PO Q12HR #10 tab 01/29/17 Unknown Rx 875 mg] Aspirin [Aspirin BABY CHEW TAB] 81 mg PO QDAY #30 tab.chew 01/29/17 Unknown Rx AtorvaSTATin [Lipitor] 40 mg PO QHS #30 tablet 01/29/17 Unknown Rx Donepezil [Aricept] 10 mg PO QDAY #30 tablet 01/29/17 Unknown Rx Famotidine [Pepcid] 20 mg PO BID #60 tablet 01/29/17 Unknown Rx Metoprolol [Lopressor TAB] 12.5 mg PO BID #60 tablet 01/29/17 Unknown Rx Potassium Chloride [K-Dur] 20 meq PO QDAY #20 tablet 01/29/17 Unknown Rx levETIRAcetam [Keppra TAB] 1,000 mg PO BID #60 tablet 01/29/17 Unknown Rx ED Physical Exam - General Limitations: Altered Mental Status General appearance: in distress - Head Head exam: Present: atraumatic, normocephalic - Neck Neck exam: Present: normal inspection, full ROM - LOC Questions 1b. LOC Questions: answers no questions correctly - LOC Command 1c. LOC Commands: performs no tasks correctly ED Course Vital Signs 03/30/17 03/30/17 03/30/17 00:46 00:50 01:15 Temperature 100.3 F H Pulse Rate 122 H 128 H Respiratory 18 18 Rate Blood Pressure 78/49 121/47 Blood Pressure 78/48 [Left] O2 Sat by Pulse 90 100 Oximetry 03/30/17 03/30/17 03/30/17 01:24 03:56 04:00 Temperature Pulse Rate 90 100 H 86 Respiratory 18 19 Rate Blood Pressure 130/59 Blood Pressure 133/47 [Left] O2 Sat by Pulse 100 100 Oximetry 03/30/17 03/30/17 04:15 04:30 Temperature Pulse Rate 96 H 92 H Respiratory 19 18 Rate Blood Pressure 128/62 130/62 Blood Pressure [Left] O2 Sat by Pulse 100 100 Oximetry - Intubation Time Out Performed: Yes Sedative: Etomidate (20MG) Paralytic: Succinylcholine (150MG) Laryngoscope: Kenneth Size: 4 ET Tube Size: 7.5 (TO 122CM) Tube Secured Depth (cm): 122 Tube Secured Location: lips Tube Placement Confirmation: equal breath sounds bilat, confirmation by capnometr Patient Tolerated Procedure: well Intubation Complications: none - Lab Data Result diagrams: 03/30/17 01:33 03/30/17 01:33 Lab Results 03/30/17 03/30/17 03/30/17 Range/Units 00:43 01:33 01:33 WBC 22.4 H (4.5-11.0) K/mm3 RBC 4.45 (3.65-5.03) M/mm3 Hgb 13.7 (11.8-15.2) gm/dl Hct 40.8 (35.5-45.6) % MCV 92 (84-94) fl MCH 31 (28-32) pg MCHC 34 (32-34) % RDW 14.5 (13.2-15.2) % Plt Count 253 (140-440) K/mm3 Add Manual Diff Complete Total Counted 100 Seg Neutrophils % Security Developer Seg Neuts % (Manual) 81.0 H (40.0-70.0) % Band Neutrophils % 6.0 % Lymphocytes % (Manual) 7.0 L (13.4-35.0) % Reactive Lymphs % (Man) 0 % Monocytes % (Manual) 6.0 (0.0-7.3) % Eosinophils % (Manual) 0 (0.0-4.3) % Basophils % (Manual) 0 (0.0-1.8) % Metamyelocytes % 0 % Myelocytes % 0 % Promyelocytes % 0 % Blast Cells % 0 % Nucleated RBC % Not Reportable Seg Neutrophils # Man 18.1 H (1.8-7.7) K/mm3 Band Neutrophils # 1.3 K/mm3 Lymphocytes # (Manual) 1.6 (1.2-5.4) K/mm3 Abs React Lymphs (Man) 0.0 K/mm3 Monocytes # (Manual) 1.3 H (0.0-0.8) K/mm3 Eosinophils # (Manual) 0.0 (0.0-0.4) K/mm3 Basophils # (Manual) 0.0 (0.0-0.1) K/mm3 Metamyelocytes # 0.0 K/mm3 Myelocytes # 0.0 K/mm3 Promyelocytes # 0.0 K/mm3 Blast Cells # 0.0 K/mm3 WBC Morphology Not Reportable Hypersegmented Neuts Not Reportable Hyposegmented Neuts Not Reportable Hypogranular Neuts Not Reportable Smudge Cells Not Reportable Toxic Granulation Not Reportable Toxic Vacuolation Not Reportable Dohle Bodies Not Reportable Pelger-Huet Anomaly Not Reportable Nilo Rods Not Reportable Platelet Estimate Appears normal Clumped Platelets Not Reportable Plt Clumps, EDTA Not Reportable Large Platelets Few Giant Platelets Not Reportable Platelet Satelliting Not Reportable Plt Morphology Comment Not Reportable RBC Morphology Not Reportable Dimorphic RBCs Not Reportable Polychromasia Not Reportable Hypochromasia Not Reportable Poikilocytosis Not Reportable Anisocytosis Not Reportable Microcytosis Not Reportable Macrocytosis Not Reportable Spherocytes Not Reportable Pappenheimer Bodies Not Reportable Sickle Cells Not Reportable Target Cells Not Reportable Tear Drop Cells Not Reportable Ovalocytes Not Reportable Helmet Cells Not Reportable Pat[place] Bodies Not Reportable [place] Rings Not Reportable Shelbi Cells Not Reportable Bite Cells Not Reportable Crenated Cell Not Reportable Elliptocytes Not Reportable Acanthocytes (Spur) Not Reportable Rouleaux Not Reportable Hemoglobin C Crystals Not Reportable Schistocytes Not Reportable Malaria parasites Not Reportable Michael Bodies Not Reportable Hem Pathologist Commnt No PT 14.7 (12.2-14.9) Sec. INR 1.09 (0.87-1.13) D-Dimer 335.88 H (0-234) ng/mlDDU POC ABG pH (7.35-7.45) POC ABG pCO2 (35-45) POC ABG pO2 (80-105) POC ABG HCO3 POC ABG Total CO2 POC ABG O2 Sat POC ABG Base Excess VBG pH (7.320-7.420) FiO2 % Sodium (137-145) mmol/L Potassium (3.6-5.0) mmol/L Chloride (98-107) mmol/L Carbon Dioxide (22-30) mmol/L Anion Gap mmol/L BUN (9-20) mg/dL Creatinine (0.8-1.5) mg/dL Estimated GFR ml/min BUN/Creatinine Ratio % Glucose (75-100) mg/dL POC Glucose 173 H (70-105) Lactic Acid (0.7-2.0) mmol/L Calcium (8.4-10.2) mg/dL Total Bilirubin (0.1-1.2) mg/dL AST (5-40) units/L ALT (7-56) units/L Alkaline Phosphatase (35-129) units/L NT-Pro-B Natriuret Pep (0-900) pg/mL Total Protein (6.3-8.2) g/dL Albumin (3.9-5) g/dL Albumin/Globulin Ratio % Urine Color (Yellow) Urine Turbidity (Clear) Urine pH (5.0-7.0) Ur Specific [place] (1.003-1.030) Urine Protein (Negative) mg/dL Urine Glucose (UA) (Negative) mg/dL Urine Ketones (Negative) mg/dL Urine Blood (Negative) Urine Nitrite (Negative) Urine Bilirubin (Negative) Urine Urobilinogen (<2.0) mg/dL Ur Leukocyte Esterase (Negative) Urine WBC (Auto) (0.0-6.0) /HPF Urine RBC (Auto) (0.0-6.0) /HPF U Epithel Cells (Auto) (0-13.0) /HPF Hyaline Casts /LPF Urine Mucus /HPF Urine Sperm (SUPPLY CATALOGUER) /HPF 03/30/17 03/30/17 03/30/17 Range/Units 01:33 01:33 01:33 WBC (4.5-11.0) K/mm3 RBC (3.65-5.03) M/mm3 Hgb (11.8-15.2) gm/dl Hct (35.5-45.6) % MCV (84-94) fl MCH (28-32) pg MCHC (32-34) % RDW (13.2-15.2) % Plt Count (140-440) K/mm3 Add Manual Diff Total Counted Seg Neutrophils % Seg Neuts % (Manual) (40.0-70.0) % Band Neutrophils % % Lymphocytes % (Manual) (13.4-35.0) % Reactive Lymphs % (Man) % Monocytes % (Manual) (0.0-7.3) % Eosinophils % (Manual) (0.0-4.3) % Basophils % (Manual) (0.0-1.8) % Metamyelocytes % % Myelocytes % % Promyelocytes % % Blast Cells % % Nucleated RBC % Seg Neutrophils # Man (1.8-7.7) K/mm3 Band Neutrophils # K/mm3 Lymphocytes # (Manual) (1.2-5.4) K/mm3 Abs React Lymphs (Man) K/mm3 Monocytes # (Manual) (0.0-0.8) K/mm3 Eosinophils # (Manual) (0.0-0.4) K/mm3 Basophils # (Manual) (0.0-0.1) K/mm3 Metamyelocytes # K/mm3 Myelocytes # K/mm3 Promyelocytes # K/mm3 Blast Cells # K/mm3 WBC Morphology Hypersegmented Neuts Hyposegmented Neuts Hypogranular Neuts Smudge Cells Toxic Granulation Toxic Vacuolation Dohle Bodies Pelger-Huet Anomaly [place]ilo Rods Platelet Estimate Clumped Platelets Plt Clumps, EDTA Large Platelets Giant Platelets Platelet Satelliting Plt Morphology Comment RBC Morphology Dimorphic RBCs Polychromasia Hypochromasia Poikilocytosis Anisocytosis Microcytosis Macrocytosis Spherocytes Pappenheimer Bodies Sickle Cells Target Cells Tear Drop Cells Ovalocytes Helmet Cells Patel-[place] Bodies [place] Rings Shel[place] Cells Bite Cells Crenated Cell Elliptocytes Acanthocytes (Spur) Rouleaux Hemoglobin C Crystals Schistocytes Malaria parasites Michael Bodies Hem Pathologist Commnt PT (12.2-14.9) Sec. INR (0.87-1.13) D-Dimer (0-234) ng/mlDDU POC ABG pH (7.35-7.45) POC ABG pCO2 (35-45) POC ABG pO2 (80-105) POC ABG HCO3 POC ABG Total CO2 POC ABG O2 Sat POC ABG Base Excess VBG pH 7.231 L (7.320-7.420) FiO2 % Sodium 142 (137-145) mmol/L Potassium 4.7 (3.6-5.0) mmol/L Chloride 104.2 (98-107) mmol/L Carbon Dioxide 22 (22-30) mmol/L Anion Gap 21 mmol/L BUN 11 (9-20) mg/dL Creatinine 1.2 (0.8-1.5) mg/dL Estimated GFR > 60 ml/min BUN/Creatinine Ratio 9 % Glucose 127 H (75-100) mg/dL POC Glucose (70-105) Lactic Acid 4.10 H* (0.7-2.0) mmol/L Calcium 7.8 L (8.4-10.2) mg/dL Total Bilirubin 0.20 (0.1-1.2) mg/dL AST 27 (5-40) units/L ALT 22 (7-56) units/L Alkaline Phosphatase 67 (35-129) units/L NT-Pro-B Natriuret Pep (0-900) pg/mL Total Protein 6.5 (6.3-8.2) g/dL Albumin 3.4 L (3.9-5) g/dL Albumin/Globulin Ratio 1.1 % Urine Color (Yellow) Urine Turbidity (Clear) Urine pH (5.0-7.0) Ur Specific [place] (1.003-1.030) Urine Protein (Negative) mg/dL Urine Glucose (UA) (Negative) mg/dL Urine Ketones (Negative) mg/dL Urine Blood (Negative) Urine Nitrite (Negative) Urine Bilirubin (Negative) Urine Urobilinogen (<2.0) mg/dL Ur Leukocyte Esterase (Negative) Urine WBC (Auto) (0.0-6.0) /HPF Urine RBC (Auto) (0.0-6.0) /HPF U Epithel Cells (Auto) (0-13.0) /HPF Hyaline Casts /LPF Urine Mucus /HPF Urine Sperm (SUPPLY CATALOGUER) /HPF 03/30/17 03/30/17 03/30/17 Range/Units 01:33 02:05 02:48 WBC (4.5-11.0) K/mm3 RBC (3.65-5.03) M/mm3 Hgb (11.8-15.2) gm/dl Hct (35.5-45.6) % MCV (84-94) fl MCH (28-32) pg MCHC (32-34) % RDW (13.2-15.2) % Plt Count (140-440) K/mm3 Add Manual Diff Total Counted Seg Neutrophils % Seg Neuts % (Manual) (40.0-70.0) % Band Neutrophils % % Lymphocytes % (Manual) (13.4-35.0) % Reactive Lymphs % (Man) % Monocytes % (Manual) (0.0-7.3) % Eosinophils % (Manual) (0.0-4.3) % Basophils % (Manual) (0.0-1.8) % Metamyelocytes % % Myelocytes % % Promyelocytes % % Blast Cells % % Nucleated RBC % Seg Neutrophils # Man (1.8-7.7) K/mm3 Band Neutrophils # K/mm3 Lymphocytes # (Manual) (1.2-5.4) K/mm3 Abs React Lymphs (Man) K/mm3 Monocytes # (Manual) (0.0-0.8) K/mm3 Eosinophils # (Manual) (0.0-0.4) K/mm3 Basophils # (Manual) (0.0-0.1) K/mm3 Metamyelocytes # K/mm3 Myelocytes # K/mm3 Promyelocytes # K/mm3 Blast Cells # K/mm3 WBC Morphology Hypersegmented Neuts Hyposegmented Neuts Hypogranular Neuts Smudge Cells Toxic Granulation Toxic Vacuolation Dohle Bodies Pelger-Huet Anomaly [place]ilo Rods Platelet Estimate Clumped Platelets Plt Clumps, EDTA Large Platelets Giant Platelets Platelet Satelliting Plt Morphology Comment RBC Morphology Dimorphic RBCs Polychromasia Hypochromasia Poikilocytosis Anisocytosis Microcytosis Macrocytosis Spherocytes Pappenheimer Bodies Sickle Cells Target Cells Tear Drop Cells Ovalocytes Helmet Cells Patel-[place] Bodies [place] Rings [place] Cells Bite Cells Crenated Cell Elliptocytes Acanthocytes (Spur) Rouleaux Hemoglobin C Crystals Schistocytes Malaria parasites Michael Bodies Hem Pathologist Commnt PT (12.2-14.9) Sec. INR (0.87-1.13) D-Dimer (0-234) ng/mlDDU POC ABG pH 7.334 L (7.35-7.45) POC ABG pCO2 47.9 H (35-45) POC ABG pO2 548 H (80-105) POC ABG HCO3 25.5 POC ABG Total CO2 27 POC ABG O2 Sat 100 POC ABG Base Excess 0 VBG pH (7.320-7.420) FiO2 100 % Sodium (137-145) mmol/L Potassium (3.6-5.0) mmol/L Chloride (98-107) mmol/L Carbon Dioxide (22-30) mmol/L Anion Gap mmol/L BUN (9-20) mg/dL Creatinine (0.8-1.5) mg/dL Estimated GFR ml/min BUN/Creatinine Ratio % Glucose (75-100) mg/dL POC Glucose (70-105) Lactic Acid (0.7-2.0) mmol/L Calcium (8.4-10.2) mg/dL Total Bilirubin (0.1-1.2) mg/dL AST (5-40) units/L ALT (7-56) units/L Alkaline Phosphatase (35-129) units/L NT-Pro-B Natriuret Pep 151.0 (0-900) pg/mL Total Protein (6.3-8.2) g/dL Albumin (3.9-5) g/dL Albumin/Globulin Ratio % Urine Color Yellow (Yellow) Urine Turbidity Clear (Clear) Urine pH 5.0 (5.0-7.0) Ur Specific [place] 1.016 (1.003-1.030) Urine Protein 100 mg/dl (Negative) mg/dL Urine Glucose (UA) Neg (Negative) mg/dL Urine Ketones Tr (Negative) mg/dL Urine Blood Neg (Negative) Urine Nitrite Neg (Negative) Urine Bilirubin Neg (Negative) Urine Urobilinogen < 2.0 (<2.0) mg/dL Ur Leukocyte Esterase Neg (Negative) Urine WBC (Auto) 1.0 (0.0-6.0) /HPF Urine RBC (Auto) 2.0 (0.0-6.0) /HPF U Epithel Cells (Auto) < 1.0 (0-13.0) /HPF Hyaline Casts 3 /LPF Urine Mucus Few /HPF Urine Sperm 1+ (SUPPLY CATALOGUER) /HPF 03/30/17 Range/Units 04:04 WBC (4.5-11.0) K/mm3 RBC (3.65-5.03) M/mm3 Hgb (11.8-15.2) gm/dl Hct (35.5-45.6) % MCV (84-94) fl MCH (28-32) pg MCHC (32-34) % RDW (13.2-15.2) % Plt Count (140-440) K/mm3 Add Manual Diff Total Counted Seg Neutrophils % Seg Neuts % (Manual) (40.0-70.0) % Band Neutrophils % % Lymphocytes % (Manual) (13.4-35.0) % Reactive Lymphs % (Man) % Monocytes % (Manual) (0.0-7.3) % Eosinophils % (Manual) (0.0-4.3) % Basophils % (Manual) (0.0-1.8) % Metamyelocytes % % Myelocytes % % Promyelocytes % % Blast Cells % % Nucleated RBC % Seg Neutrophils # Man (1.8-7.7) K/mm3 Band Neutrophils # K/mm3 Lymphocytes # (Manual) (1.2-5.4) K/mm3 Abs React Lymphs (Man) K/mm3 Monocytes # (Manual) (0.0-0.8) K/mm3 Eosinophils # (Manual) (0.0-0.4) K/mm3 Basophils # (Manual) (0.0-0.1) K/mm3 Metamyelocytes # K/mm3 Myelocytes # K/mm3 Promyelocytes # K/mm3 Blast Cells # K/mm3 WBC Morphology Hypersegmented Neuts Hyposegmented Neuts Hypogranular Neuts Smudge Cells Toxic Granulation Toxic Vacuolation Dohle Bodies Pelger-Huet Anomaly [place] Rods Platelet Estimate Clumped Platelets Plt Clumps, EDTA Large Platelets Giant Platelets Platelet Satelliting Plt Morphology Comment RBC Morphology Dimorphic RBCs Polychromasia Hypochromasia Poikilocytosis Anisocytosis Microcytosis Macrocytosis Spherocytes Pappenheimer Bodies Sickle Cells Target Cells Tear Drop Cells Ovalocytes Helmet Cells Patel-[place] Bodies [place] Rings [place] Cells Bite Cells Crenated Cell Elliptocytes Acanthocytes (Spur) Rouleaux Hemoglobin C Crystals Schistocytes Malaria parasites Michael Bodies Hem Pathologist Commnt PT (12.2-14.9) Sec. INR (0.87-1.13) D-Dimer (0-234) ng/mlDDU POC ABG pH (7.35-7.45) POC ABG pCO2 (35-45) POC ABG pO2 (80-105) POC ABG HCO3 POC ABG Total CO2 POC ABG O2 Sat POC ABG Base Excess VBG pH (7.320-7.420) FiO2 % Sodium (137-145) mmol/L Potassium (3.6-5.0) mmol/L Chloride (98-107) mmol/L Carbon Dioxide (22-30) mmol/L Anion Gap mmol/L BUN (9-20) mg/dL Creatinine (0.8-1.5) mg/dL Estimated GFR ml/min BUN/Creatinine Ratio % Glucose (75-100) mg/dL POC Glucose (70-105) Lactic Acid 1.80 (0.7-2.0) mmol/L Calcium (8.4-10.2) mg/dL Total Bilirubin (0.1-1.2) mg/dL AST (5-40) units/L ALT (7-56) units/L Alkaline Phosphatase (35-129) units/L NT-Pro-B Natriuret Pep (0-900) pg/mL Total Protein (6.3-8.2) g/dL Albumin (3.9-5) g/dL Albumin/Globulin Ratio % Urine Color (Yellow) Urine Turbidity (Clear) Urine pH (5.0-7.0) Ur Specific [place]inx (1.003-1.030) Urine Protein (Negative) mg/dL Urine Glucose (UA) (Negative) mg/dL Urine Ketones (Negative) mg/dL Urine Blood (Negative) Urine Nitrite (Negative) Urine Bilirubin (Negative) Urine Urobilinogen (<2.0) mg/dL Ur Leukocyte Esterase (Negative) Urine WBC (Auto) (0.0-6.0) /HPF Urine RBC (Auto) (0.0-6.0) /HPF U Epithel Cells (Auto) (0-13.0) /HPF Hyaline Casts /LPF Urine Mucus /HPF Urine Sperm (SUPPLY CATALOGUER) /HPF Critical Care Time: Yes Critical care time in (mins) excluding proc time.: 300 Critical care attestation.: If time is entered above; I have spent that time in minutes in the direct care of this critically ill patient, excluding procedure time. SHANIA Critical Care Time: 300MIN ED Disposition Clinical Impression: Status epilepticus Respiratory failure Qualifiers: Chronicity: acute Respiratory failure complication: hypoxia and hypercapnia Qualified Code(s): J96.01 - Acute respiratory failure with hypoxia Disposition: -09 OP ADMIT IP TO THIS HOSP Is pt being admited?: Yes Condition: Stable
--- NOTE | 2017-03-30 01:16 | XRay Report ---
FINAL REPORT EXAM: XR CHEST 1V AP HISTORY: pneumonia POST INTUBATION TECHNIQUE: A portable AP view of the chest was obtained. Comparison is made to the study of 01/21/2017. FINDINGS: The tip of the ET tube is in good position 1 cm above the stephany. The heart size is normal. The lungs are not congested. There are no localized infiltrates or effusions. There are EKG leads overlying the chest wall. The bones and soft tissues do not show any acute changes. IMPRESSION: Satisfactory intubation. No evidence of congestion or localized infiltrates.
[2017-03-30] MEDS ORDERED: ZEMURON IV ONE ×2 (01:48→03:00)
[2017-03-30 01:53] LABS: Hematocrit 40.8 % (35.5-45.6); Hemoglobin 13.7 gm/dl (11.8-15.2); Mean Corpuscular HGB Conc 34 % (32-34); Mean Corpuscular Hemoglobin 31 pg (28-32); Mean Corpuscular Volume 92 fl (84-94); Platelet Count 253 K/mm3 (140-440); Red Blood Count 4.45 M/mm3 (3.65-5.03); Red Cell Distribution Width 14.5 % (13.2-15.2)
[2017-03-30 02:00] LABS: White Blood Count 22.4 K/mm3 (4.5-11.0)
[2017-03-30] MEDS ORDERED: MIDAZOLAM 100 MG in NACL 0.9% 80 ML IV SCH (02:00)
[2017-03-30] MEDS ORDERED: VERSED IV NR ×3 (02:00)
[2017-03-30 02:07] LABS: INR 1.09 (0.87-1.13)
[2017-03-30 02:11] LABS: ISTAT Base Excess 0; ISTAT HCO3 25.5; ISTAT PCO2 47.9 (35-45); ISTAT PH 7.334 (7.35-7.45); ISTAT PO2 548 (80-105); ISTAT SO2 100; ISTAT TCO2 27
[2017-03-30 02:13] LABS: Alanine Aminotransferase 22 units/L (7-56); Albumin 3.4 g/dL (3.9-5); Alkaline Phosphatase 67 units/L (35-129); Anion Gap 21 mmol/L; BUN/Creatinine Ratio 9; Blood Urea Nitrogen 11 mg/dL (9-20); Calcium 7.8 mg/dL (8.4-10.2); Carbon Dioxide 22 mmol/L (22-30); Chloride 104.2 mmol/L (98-107); Glucose 127 mg/dL (75-100); Potassium 4.7 mmol/L (3.6-5.0); Sodium 142 mmol/L (137-145)
[2017-03-30 02:45] LABS: Basophils % (Manual) 0 % (0.0-1.8); Blastocytes % (Manual) 0 %; Eosinophils % (Manual) 0 % (0.0-4.3)
[2017-03-30 02:46] LABS: Diff Status Complete; Large Platelets Few
[2017-03-30 02:51] LABS: Albumin/Globulin Ratio 1.1 %; Total Protein 6.5 g/dL (6.3-8.2)
[2017-03-30] MEDS ORDERED: VANCOMYCIN/NS 1 GM/250 ML 1 GM/250 ML BAG IV ONE (03:00)
[2017-03-30 03:22] LABS: Bilirubin,Urine NEG (Negative); Blood,Urine NEG (Negative); Ketones,Urine TR mg/dL (Negative); Leukocyte Esterase,Urine NEG (Negative); Mucus,Urine FEW /HPF; Nitrite,Urine NEG (Negative); Sperm,Urine 1+ /HPF (NP); Urobilinogen,Urine < 2.0 mg/dL (<2.0)
--- NOTE | 2017-03-30 04:20 | Cat Scan Report ---
FINAL REPORT EXAM: CT HEAD/BRAIN WO CON HISTORY: ams TECHNIQUE: Routine axial imaging was obtained of the brain without IV contrast. Comparison is made to the study of 01/28/2017. FINDINGS: There is [id number] volume loss. There is no evidence of acute stroke or hemorrhage. The ventricular system is appropriate in size and is symmetric. The sinuses reveal mild mucosal thickening in the ethmoidal and maxillary sinuses. The mastoid air cells are well pneumatized. IMPRESSION: [id number] generalized volume loss. No evidence of acute stroke or hemorrhage. Mild ethmoidal and maxillary sinusitis.
--- NOTE | 2017-03-30 04:28 | Cat Scan Report ---
FINAL REPORT EXAM: CT ANGIO CHEST HISTORY: AMS,ASPIRATION,PE TECHNIQUE: A CT angiogram was performed following the intravenous injection of 100 cc of Omnipaque 350. MIP parasagittal and coronal reconstructions were reviewed. FINDINGS: The lungs reveal a small right-sided effusion with mild atelectasis in the right lung base. The lungs otherwise reveal mild interstitial prominence. The lungs are not overtly congested. There is no evidence of a pulmonary embolus or aortic dissection. The heart size is normal. There is no evidence of lymphadenopathy. At the thoracic inlet there is a low-attenuation lesion in the left thyroid lobe measuring 12.4 millimeters in diameter. The right thyroid lobe appears normal. The patient is intubated. The tip of the ET tube is in good position above the stephany. In the upper abdomen there are multiple cystic lesions throughout the liver measuring up to 5 cm in diameter in the right hepatic lobe. The adrenal glands appear normal. The skeletal structures reveal multilevel disc degeneration in the thoracic spine. IMPRESSION: No evidence of pulmonary embolus or aortic dissection. Small right-sided pleural effusion with atelectatic changes in the right lung base. 12.4 millimeter low-density lesion in the left thyroid lobe. Further evaluation is recommended with outpatient thyroid sonography. Multiple cystic lesions throughout the liver measuring up to 5 cm in diameter. Sonographic evaluation of the liver is recommended for better evaluation.
--- NOTE | 2017-03-30 04:48 | History and Physical Report ---
History of Present Illness Date of examination: 03/30/17 Date of admission: 03/30/17 Chief complaint: Seizures History of present illness: Patient is 61-year-old with history of seizure disorder, dementia. He is a resident at SNF. He was sent in from SNF because of seizures. Patient has been on Keppra for seiure disorder. En route to ED was given Versed 2mg by paramadics. In Emergency Department, he was in respiratory distress and was therefore intubated, and put on ventilator. Will be admitted to ICU for further management. Cannot obtain history from patient because he is intubated. All history obtained from ED Physician and medical records. Past History Past Medical History: hyperlipidemia, other (seizure disorder, dementia) Past Surgical History: Other (Unknown) Social history: full code, other (lives in SNF). denies: smoking, alcohol abuse Family history: hypertension Medications and Allergies Allergies Allergy/AdvReac Type Severity Reaction Status Date / Time No Known Allergies Allergy Verified 01/21/17 22:27 Home Medications Medication Instructions Recorded Confirmed Last Taken Type Cholecalciferol (Vitamin D3) 1,000 unit PO DAILY 01/22/17 03/30/17 Unknown History [Children's Vitamin D3 1,000 unit CHEW] Sennosides [Senna] 17.2 mg PO DAILY 01/22/17 03/30/17 Unknown History Amoxicillin/K Clav Tab [Augmentin 1 tab PO Q12HR #10 tab 01/29/17 03/30/17 Unknown Rx 875 mg] Aspirin [Aspirin BABY CHEW TAB] 81 mg PO QDAY #30 tab.chew 01/29/17 03/30/17 Unknown Rx AtorvaSTATin [Lipitor] 40 mg PO QHS #30 tablet 01/29/17 03/30/17 Unknown Rx Donepezil [Aricept] 10 mg PO QDAY #30 tablet 01/29/17 03/30/17 Unknown Rx Famotidine [Pepcid] 20 mg PO BID #60 tablet 01/29/17 03/30/17 Unknown Rx Metoprolol [Lopressor TAB] 12.5 mg PO BID #60 tablet 01/29/17 03/30/17 Unknown Rx Potassium Chloride [K-Dur] 20 meq PO QDAY #20 tablet 01/29/17 03/30/17 Unknown Rx levETIRAcetam [Keppra TAB] 1,000 mg PO BID #60 tablet 01/29/17 03/30/17 Unknown Rx Active Meds: Active Medications Midazolam HCl 100 mg/ Sodium (Chloride) 100 mls @ 2 mls/hr IV TITR CHER; 2 MG/HR PRN Reason: Protocol Piperacillin Sod/Tazobactam Sod (Zosyn/Ns 3.375gm/50ml) 3.375 gm in 50 mls @ 100 mls/hr IV Q8HR CHER PRN Reason: Protocol Levetiracetam (Keppra 1,000 Mg/Ns 0.75% 100ml) 1,000 mg in 100 mls @ 300 mls/ hr IV Q12HR CHER Midazolam HCl (Versed) 10 mg IV ONCE NR Stop: 03/31/17 01:59 Last Admin: 03/30/17 01:30 Dose: 10 mg Midazolam HCl (Versed) 10 mg IV ONCE NR Stop: 03/30/17 23:45 Midazolam HCl (Versed) 20 mg IV ONCE NR Stop: 03/30/17 23:45 Review of Systems ROS unobtainable: due to endotracheal tube Exam - Physical Exam Narrative exam: GEN APPEARANCE : Intubated, on vent HEENT: Normocephalic, Atraumatic NECK : supple, no JVD LUNGS: Coarse breath sounds bilat, no wheeze HEART: S1 and S2 regular, no murmurs, rubs or gallop, ABD: Soft, non tender, non distended, normal bowel sounds EXT: No edema, no clubbing, no cyanosis NEURO: Intubated ,sedated - Constitutional Vitals: Temp Pulse Resp BP Pulse Ox 100.3 F H 92 H 18 130/62 100 03/30/17 00:50 03/30/17 04:30 03/30/17 04:30 03/30/17 04:30 03/30/17 04:30 Results - Labs CBC & Chem 7: 03/30/17 01:33 03/30/17 01:33 Labs: Abnormal lab results 03/30/17 03/30/17 03/30/17 Range/Units 00:43 01:33 01:33 WBC 22.4 H (4.5-11.0) K/mm3 Seg Neuts % (Manual) 81.0 H (40.0-70.0) % Lymphocytes % (Manual) 7.0 L (13.4-35.0) % Seg Neutrophils # Man 18.1 H (1.8-7.7) K/mm3 Monocytes # (Manual) 1.3 H (0.0-0.8) K/mm3 D-Dimer 335.88 H (0-234) ng/mlDDU POC ABG pH (7.35-7.45) POC ABG pCO2 (35-45) POC ABG pO2 (80-105) VBG pH (7.320-7.420) Glucose (75-100) mg/dL POC Glucose 173 H (70-105) Lactic Acid (0.7-2.0) mmol/L Calcium (8.4-10.2) mg/dL Albumin (3.9-5) g/dL 03/30/17 03/30/17 03/30/17 Range/Units 01:33 01:33 01:33 WBC (4.5-11.0) K/mm3 Seg Neuts % (Manual) (40.0-70.0) % Lymphocytes % (Manual) (13.4-35.0) % Seg Neutrophils # Man (1.8-7.7) K/mm3 Monocytes # (Manual) (0.0-0.8) K/mm3 D-Dimer (0-234) ng/mlDDU POC ABG pH (7.35-7.45) POC ABG pCO2 (35-45) POC ABG pO2 (80-105) VBG pH 7.231 L (7.320-7.420) Glucose 127 H (75-100) mg/dL POC Glucose (70-105) Lactic Acid 4.10 H* (0.7-2.0) mmol/L Calcium 7.8 L (8.4-10.2) mg/dL Albumin 3.4 L (3.9-5) g/dL 03/30/17 Range/Units 02:05 WBC (4.5-11.0) K/mm3 Seg Neuts % (Manual) (40.0-70.0) % Lymphocytes % (Manual) (13.4-35.0) % Seg Neutrophils # Man (1.8-7.7) K/mm3 Monocytes # (Manual) (0.0-0.8) K/mm3 D-Dimer (0-234) ng/mlDDU POC ABG pH 7.334 L (7.35-7.45) POC ABG pCO2 47.9 H (35-45) POC ABG pO2 548 H (80-105) VBG pH (7.320-7.420) Glucose (75-100) mg/dL POC Glucose (70-105) Lactic Acid (0.7-2.0) mmol/L Calcium (8.4-10.2) mg/dL Albumin (3.9-5) g/dL Assessment and Plan Acute respiratory failure. Admit to ICU. He had respiratory distress in ED and was is intubated and put on ventilator. consult Pulmonology. Versed drip for sedation.Obtain ABG. Status epilepticus. He was on Keppra for seizure disorder. Give keppra 1000mg iv Q 12. Seizure precautions, neurochecks Leukocytosis with elevated WBC of 22.4. To r/o sepsis. Start Zosyn and Vancomycin Dementia. Supportive care Full code status
[2017-03-30] MEDS ORDERED: MORPHINE IV PRN (04:51)
[2017-03-30] MEDS ORDERED: ALUM-MAG HYDROX-SIMETH 200-200-20MG/5ML PO PRN (04:51)
[2017-03-30] MEDS ORDERED: DULCOLAX PR PRN (04:51)
[2017-03-30] MEDS ORDERED: MILK OF MAGNESIA PO PRN (04:51)
[2017-03-30] MEDS ORDERED: PROVENTIL IH PRN (04:51)
[2017-03-30] MEDS ORDERED: VANCOMYCIN VIAL IV ONE (04:57)
[2017-03-30] MEDS ORDERED: VANCOMYCIN PHARMACY TO DOSE IV SCH (05:00)
[2017-03-30] MEDS ORDERED: LEVAQUIN 750MG/150ML 750 MG/150 ML BAG IV SCH (05:00)
--- NOTE | 2017-03-30 05:06 | Cat Scan Report ---
FINAL REPORT EXAM: CT ABDOMEN PELVIS W CON HISTORY: AMS,ASPIRATION,PE TECHNIQUE: Routine axial imaging was obtained of the abdomen and pelvis following the intravenous injection of 100 cc of Omnipaque 350. Sagittal and coronal reconstructions were reviewed. Delayed imaging was also reviewed. FINDINGS: There is a small right-sided pleural effusion with atelectatic changes in the right lower lobe. The liver is normal size reveals multiple cysts measuring 5 cm in diameter in the right hepatic lobe. The gallbladder and biliary tree appear normal. The pancreas, spleen, and adrenal glands appear normal. The kidneys enhance normally. The renal collecting structures appear normal. There calcification of the abdominal aorta. The bowel loops are normal in caliber and course. There is no evidence of free fluid or adenopathy. In the pelvis there is a Luque catheter in the bladder. The prostate gland appears normal. The skeletal structures do not show any acute changes. IMPRESSION: Multiple benign-appearing cysts in both buttock lobes measuring 5 cm in diameter. Small right-sided pleural effusion with atelectatic changes right lung base. No acute process in the abdomen and pelvis otherwise.
[2017-03-30] MEDS ORDERED: TYLENOL PR ONE (05:32)
[2017-03-30] MEDS: KEPPRA 1,000 MG/NS 0.75% 100ML 1,000 MG/100 ML BAG IV SCH ×2 (05:58→18:11)
[2017-03-30] MEDS ORDERED: ZOSYN/NS 4.5GM/100ML 4.5 GM/100 ML VIAL IV SCH (06:00)
[2017-03-30] MEDS ORDERED: ZOSYN/NS 3.375GM/50ML 3.375 GM/50 ML BAG IV SCH (06:00)
[2017-03-30] MEDS: LEVAQUIN 750MG/150ML 750 MG/150 ML BAG IV SCH (06:01)
[2017-03-30 06:15] LABS: ISTAT Base Excess -2; ISTAT HCO3 22.8; ISTAT PCO2 39.7 (35-45); ISTAT PH 7.368 (7.35-7.45); ISTAT PO2 114 (80-105); ISTAT SO2 98; ISTAT TCO2 24
[2017-03-30] MEDS: ZOSYN/NS 4.5GM/100ML 4.5 GM/100 ML VIAL IV SCH ×3 (07:56→23:36)
[2017-03-30] MEDS ORDERED: KEPPRA 1,000 MG/NS 0.75% 100ML 1,000 MG/100 ML BAG IV SCH (10:00)
[2017-03-30] MEDS ORDERED: KEPPRA 1,000 MG in NACL 0.9% 100 ML IV SCH (10:00)
[2017-03-30] MEDS ORDERED: AUGMENTIN 875 MG PO SCH (11:00)
[2017-03-30] MEDS ORDERED: PEPCID PO SCH (11:00)
[2017-03-30] MEDS: BABY ASPIRIN PO SCH (11:21)
[2017-03-30] MEDS: LOPRESSOR PO SCH ×2 (11:22→23:12)
--- NOTE | 2017-03-30 11:38 | Consultation ---
History of Present Illness Consult date: 03/30/17 Requesting physician: ANDERSON HARRISON Reason for consult: other (acute respiratory failure secondary to medication) History of present illness: 61 y/o male, [facility] resident who suffers with dementia, admitted to the hospital secondary to seizures. Has a known history of seizure and on Keppra chronically. Per chart, given Ativan and Versed in route. Patient was obtunded , unresponsive and was hypoxic so intubated by ED and placed on Keppra. CTA was done which was negative for PE, has small right effusion with some associated atelectasis. Otherwise lungs are unremarkable. Remainder is negative. He is awake and alert, following commands. He has been off sedation for at least 2 hours and is tolerating PSV. No family at bedside. Past History Past Medical History: hyperlipidemia, other (seizure disorder, dementia) Past Surgical History: Other (Unknown) Social history: full code, other (lives in SNF). denies: smoking, alcohol abuse Family history: hypertension Medications and Allergies Allergies Allergy/AdvReac Type Severity Reaction Status Date / Time No Known Allergies Allergy Verified 01/21/17 22:27 Home Medications Medication Instructions Recorded Confirmed Last Taken Type Cholecalciferol (Vitamin D3) 1,000 unit PO DAILY 01/22/17 03/30/17 Unknown History [Children's Vitamin D3 1,000 unit CHEW] Sennosides [Senna] 17.2 mg PO DAILY 01/22/17 03/30/17 Unknown History Amoxicillin/K Clav Tab [Augmentin 1 tab PO Q12HR #10 tab 01/29/17 03/30/17 Unknown Rx 875 mg] Aspirin [Aspirin BABY CHEW TAB] 81 mg PO QDAY #30 tab.chew 01/29/17 03/30/17 Unknown Rx AtorvaSTATin [Lipitor] 40 mg PO QHS #30 tablet 01/29/17 03/30/17 Unknown Rx Donepezil [Aricept] 10 mg PO QDAY #30 tablet 01/29/17 03/30/17 Unknown Rx Famotidine [Pepcid] 20 mg PO BID #60 tablet 01/29/17 03/30/17 Unknown Rx Metoprolol [Lopressor TAB] 12.5 mg PO BID #60 tablet 01/29/17 03/30/17 Unknown Rx Potassium Chloride [K-Dur] 20 meq PO QDAY #20 tablet 01/29/17 03/30/17 Unknown Rx levETIRAcetam [Keppra TAB] 1,000 mg PO BID #60 tablet 01/29/17 03/30/17 Unknown Rx Active Meds: Active Medications Al Hydrox/Mg Hydrox/Simethicone (Alum-Mag Hydrox-Simeth [id number]/5ml) 30 ml PO Q4H PRN PRN Reason: Indigestion Albuterol (Proventil) 2.5 mg IH Q3HRT PRN PRN Reason: Shortness Of Breath Aspirin (Baby Aspirin) 81 mg PO QDAY [facility] Last Admin: 03/30/17 11:21 Dose: Not Given Bisacodyl (Dulcolax) 10 mg [place] QDAY PRN PRN Reason: constipation unrelieved by MOM Famotidine (Pepcid) 20 mg IV BID CHER Heparin Sodium (Porcine) (Heparin) 5,000 unit SUB-Q Q8HR CHER Midazolam HCl 100 mg/ Sodium (Chloride) 100 mls @ 2 mls/hr IV TITR CHER; 2 MG/HR PRN Reason: Protocol Levetiracetam (Keppra 1,000 Mg/Ns 0.75% 100ml) 1,000 mg in 100 mls @ 300 mls/ hr IV Q12H [facility] Last Admin: 03/30/17 05:58 Dose: 300 mls/hr Piperacillin Sod/Tazobactam Sod (Zosyn/Ns 4.5gm/100ml) 4.5 gm in 100 mls @ 200 mls/hr IV Q8HR CHER PRN Reason: Protocol Last Admin: 03/30/17 07:56 Dose: 200 mls/hr Vancomycin HCl 1,250 mg/ (Sodium Chloride) 262.5 mls @ 166.667 mls/hr IV Q12H CHER Levofloxacin/Dextrose (Levaquin 750mg/150ml) 750 mg in 150 mls @ 100 mls/hr IV Q24H CHER PRN Reason: Protocol Last Admin: 03/30/17 06:01 Dose: Not Given Dextrose/Sodium Chloride (D5/0.45ns) 1,000 mls @ 75 mls/hr IV DIRECT CHER Magnesium Hydroxide (Milk Of Magnesia) 30 ml PO Q4H PRN PRN Reason: Constipation Metoprolol Tartrate (Lopressor) 12.5 mg PO BID [facility] Last Admin: 03/30/17 11:22 Dose: Not Given Midazolam HCl (Versed) 10 mg IV ONCE NR Stop: 03/31/17 01:59 Last Admin: 03/30/17 01:30 Dose: 10 mg Midazolam HCl (Versed) 10 mg IV ONCE NR Stop: 03/30/17 23:45 Last Admin: 03/30/17 03:00 Dose: 10 mg Midazolam HCl (Versed) 20 mg IV ONCE NR Stop: 03/30/17 23:45 Last Admin: 03/30/17 02:25 Dose: 20 mg Morphine Sulfate (Morphine) 2 mg IV Q4H PRN PRN Reason: Pain, Moderate (4-6) Vancomycin HCl (Vancomycin Pharmacy To Dose) 1 each IV PKCONSULT CHER PRN Reason: Protocol Review of Systems ROS unobtainable: due to endotracheal tube Physical Examination Vital signs: Vital Signs Resp 18 03/30/17 00:46 General appearance: no acute distress, alert, lethargic Eyes: non-icteric ENT: other (orally intubated but no sedated) Effort: normal Ascultation: Bilateral: rhonchi Percussion: Bilateral: not dull Cardiovascular: regular rate and rhythm (sinus tachy) Gastrointestinal: normoactive bowel sounds, soft, non-tender Extremities: no edema, pink and warm normal mental status, non-focal exam Results - Laboratory Findings CBC and BMP: 03/30/17 01:33 03/30/17 01:33 ABG POC ABG pH 7.368 (7.35-7.45) 03/30/17 05:43 POC ABG pCO2 39.7 (35-45) 03/30/17 05:43 POC ABG pO2 114 (80-105) H 03/30/17 05:43 POC ABG HCO3 22.8 03/30/17 05:43 POC ABG Total CO2 24 03/30/17 05:43 POC ABG O2 Sat 98 03/30/17 05:43 PT/INR, D-dimer PT 14.7 Sec. (12.2-14.9) 03/30/17 01:33 INR 1.09 (0.87-1.13) 03/30/17 01:33 D-Dimer 335.88 ng/mlDDU (0-234) H 03/30/17 01:33 Abnormal lab findings: Abnormal Labs 03/30/17 03/30/17 03/30/17 00:43 01:33 01:33 WBC 22.4 H Seg Neuts % (Manual) 81.0 H Lymphocytes % (Manual) 7.0 L Seg Neutrophils # Man 18.1 H Monocytes # (Manual) 1.3 H D-Dimer 335.88 H POC ABG pH POC ABG pCO2 POC ABG pO2 VBG pH Glucose POC Glucose 173 H Lactic Acid Calcium Albumin 03/30/17 03/30/17 03/30/17 01:33 01:33 01:33 WBC Seg Neuts % (Manual) Lymphocytes % (Manual) Seg Neutrophils # Man Monocytes # (Manual) D-Dimer POC ABG pH POC ABG pCO2 POC ABG pO2 VBG pH 7.231 L Glucose 127 H POC Glucose Lactic Acid 4.10 H* Calcium 7.8 L Albumin 3.4 L 03/30/17 03/30/17 02:05 05:43 WBC Seg Neuts % (Manual) Lymphocytes % (Manual) Seg Neutrophils # Man Monocytes # (Manual) D-Dimer POC ABG pH 7.334 L POC ABG pCO2 47.9 H POC ABG pO2 548 H 114 H VBG pH Glucose POC Glucose Lactic Acid Calcium Albumin - Diagnostic Findings Chest x-ray: image reviewed CT scan - chest: image reviewed Assessment and Plan 61 y/o male with acute respiratory failure, secondary to seizure activity and possible aspiration secondary to medication treatment for seizure in route to hospital. 1. Continue BID keppra 2. Will attempt extubation 3. Aspiration precautions 4. Will order PRN NT suction 5. DVT and GI prophylaxis. CCT 31 minutes.
[2017-03-30] MEDS: VANCOMYCIN 1,250 MG in NACL 0.9% 250ML 250 ML IV SCH ×2 (12:03→22:57)
[2017-03-30] MEDS: PEPCID IV SCH ×2 (12:03→23:12)
[2017-03-30] MEDS: HEPARIN SUB-Q SCH ×2 (15:04→23:12)
[2017-03-31] MEDS: HALDOL IM PRN (01:47)
[2017-03-31 04:17] LABS: Basophils % (Auto) 0.3 % (0.0-1.8); Eosinophils % (Auto) 0.3 % (0.0-4.3); Hematocrit 44.6 % (35.5-45.6); Hemoglobin 14.6 gm/dl (11.8-15.2); Mean Corpuscular HGB Conc 33 % (32-34); Mean Corpuscular Hemoglobin 30 pg (28-32); Mean Corpuscular Volume 92 fl (84-94); Platelet Count 252 K/mm3 (140-440); Red Blood Count 4.86 M/mm3 (3.65-5.03); Red Cell Distribution Width 14.8 % (13.2-15.2); White Blood Count 15.3 K/mm3 (4.5-11.0)
[2017-03-31 04:22] LABS: Anion Gap 21 mmol/L; BUN/Creatinine Ratio 7; Blood Urea Nitrogen 7 mg/dL (9-20); Calcium 8.3 mg/dL (8.4-10.2); Carbon Dioxide 23 mmol/L (22-30); Chloride 103.7 mmol/L (98-107); Glucose 96 mg/dL (75-100); Sodium 144 mmol/L (137-145)
[2017-03-31] MEDS: ZOSYN/NS 4.5GM/100ML 4.5 GM/100 ML VIAL IV SCH ×3 (06:46→22:36)
[2017-03-31] MEDS: KEPPRA 1,000 MG/NS 0.75% 100ML 1,000 MG/100 ML BAG IV SCH ×2 (06:46→17:13)
[2017-03-31] MEDS: LEVAQUIN 750MG/150ML 750 MG/150 ML BAG IV SCH (06:46)
[2017-03-31] MEDS: HEPARIN SUB-Q SCH ×3 (06:46→22:51)
[2017-03-31] MEDS: PEPCID IV SCH ×2 (10:16→22:36)
[2017-03-31] MEDS: LOPRESSOR PO SCH ×2 (10:17→22:36)
[2017-03-31] MEDS: BABY ASPIRIN PO SCH (10:17)
[2017-03-31] MEDS: VANCOMYCIN 1,250 MG in NACL 0.9% 250ML 250 ML IV SCH (11:05)
[2017-03-31] MEDS ORDERED: APRESOLINE IV PRN (14:28)
--- NOTE | 2017-03-31 14:29 | Progress Note ---
Assessment and Plan Assessment and plan: Patient is a 61 yo man from [facility] with a h/o Dementia, schizophrenia and sz disorder who presented with intractable seizures requiring intubation, now extubated. I called [facility], he was located on [address]. Trying to determine baseline, spoke with his nurse Abad TALBERT==>he on psych unit. His baseline: He ambulates, feeds him, dress himself, ativan in the past causes him to be confused/agitated. He has been intubated for seizures before and ativan always makes him confused but he eventually will return to his baseline. CT angiogram of the chest reported as no PE or aortic dissection, small right pleural effusion with atelectatic changes in the right lung base, 12.4 mm low density lesion in the left thyroid lobe, further evaluation recommended with outpatient thyroid sonography, multiple cystic lesions throughout the liver measuring up to 5 cm in diameter, sonographic evaluation of liver is recommended for better evaluation. CT brain reported as mild ethmoid and maxillary sinusitis, no acute stroke or hemorrhage, mild to moderate generalized volume loss -Acute hypoxic respiratory failure s/p I/E: continue to wean O2 -Status epilepitus: iv keppra, consult neurology -Acute encephalopathy: restraints, use Haldol -Liver lesion: Get ultrasound of the liver gallbladder. -Acute maxillary sinusitis with sepsis, present on admission: stop IV vancomycin , continue IV Levaquin -DVT prophylaxis: Subcutaneous heparin History Interval history: Patient was seen and examined. Follow-up on current diagnosis. Overnight uneventful. Patient's still altered. Imaging, nursing note, chart, labs and old chart reviewed. Hospitalist Physical - Physical exam Narrative exam: GEN: WDWN, NAD, AWAKE, ALERT, ORIENTATED 1 HEENT: NCAT, EOMI, PERRL, OP Clear NECK: supple, no adenopathy, no thyromegaly, no JVD CVS/HEART: RRR, NORMAL S1S2, NO JVD, pulses present bilaterally CHEST/LUNGS: CTA B, Symmetrical chest expansion, good air entry bilaterally GI/Abdomen: soft, NTND, good bowel sounds, no guarding or rebound /Bladder: no suprapubic tenderness, no CVA or paraspinal tenderness EXT/Skin: no c/c/e, no obvious rash MSK: FROM x 4 Neuro: CN 2-12 grossly intact, no new focal deficits Psych: Agitated and confused - Constitutional Vitals: Temp Pulse Resp BP Pulse Ox 97.9 F 57 L 16 164/69 95 03/31/17 13:21 03/31/17 13:21 03/31/17 13:21 03/31/17 13:21 03/31/17 13:21 Results - Labs CBC & Chem 7: 03/31/17 03:19 03/31/17 03:19 Labs: Laboratory Last Values WBC 15.3 K/mm3 (4.5-11.0) H 03/31/17 03:19 RBC 4.86 M/mm3 (3.65-5.03) 03/31/17 03:19 Hgb 14.6 gm/dl (11.8-15.2) 03/31/17 03:19 Hct 44.6 % (35.5-45.6) 03/31/17 03:19 MCV 92 fl (84-94) 03/31/17 03:19 MCH 30 pg (28-32) 03/31/17 03:19 MCHC 33 % (32-34) 03/31/17 03:19 RDW 14.8 % (13.2-15.2) 03/31/17 03:19 Plt Count 252 K/mm3 (140-440) 03/31/17 03:19 Lymph % (Auto) 7.1 % (13.4-35.0) L 03/31/17 03:19 [place] % (Auto) 9.4 % (0.0-7.3) H 03/31/17 03:19 Eos % (Auto) 0.3 % (0.0-4.3) 03/31/17 03:19 Baso % (Auto) 0.3 % (0.0-1.8) 03/31/17 03:19 Lymph # 1.1 K/mm3 (1.2-5.4) L 03/31/17 03:19 [place] # 1.4 K/mm3 (0.0-0.8) H 03/31/17 03:19 Eos # 0.0 K/mm3 (0.0-0.4) 03/31/17 03:19 Baso # 0.0 K/mm3 (0.0-0.1) 03/31/17 03:19 Add Manual Diff Complete 03/30/17 01:33 Total Counted 100 03/30/17 01:33 Seg Neutrophils % 82.9 % (40.0-70.0) H 03/31/17 03:19 Seg Neuts % (Manual) 81.0 % (40.0-70.0) H 03/30/17 01:33 Band Neutrophils % 6.0 % 03/30/17 01:33 Lymphocytes % (Manual) 7.0 % (13.4-35.0) L 03/30/17 01:33 Reactive Lymphs % (Man) 0 % 03/30/17 01:33 Monocytes % (Manual) 6.0 % (0.0-7.3) 03/30/17 01:33 Eosinophils % (Manual) 0 % (0.0-4.3) 03/30/17 01:33 Basophils % (Manual) 0 % (0.0-1.8) 03/30/17 01:33 Metamyelocytes % 0 % 03/30/17 01:33 Myelocytes % 0 % 03/30/17 01:33 Promyelocytes % 0 % 03/30/17 01:33 Blast Cells % 0 % 03/30/17 01:33 Nucleated RBC % Not Reportable 03/30/17 01:33 Seg Neutrophils # 12.7 K/mm3 (1.8-7.7) H 03/31/17 03:19 Seg Neutrophils # Man 18.1 K/mm3 (1.8-7.7) H 03/30/17 01:33 Band Neutrophils # 1.3 K/mm3 03/30/17 01:33 Lymphocytes # (Manual) 1.6 K/mm3 (1.2-5.4) 03/30/17 01:33 Abs React Lymphs (Man) 0.0 K/mm3 03/30/17 01:33 Monocytes # (Manual) 1.3 K/mm3 (0.0-0.8) H 03/30/17 01:33 Eosinophils # (Manual) 0.0 K/mm3 (0.0-0.4) 03/30/17 01:33 Basophils # (Manual) 0.0 K/mm3 (0.0-0.1) 03/30/17 01:33 Metamyelocytes # 0.0 K/mm3 03/30/17 01:33 Myelocytes # 0.0 K/mm3 03/30/17 01:33 Promyelocytes # 0.0 K/mm3 03/30/17 01:33 Blast Cells # 0.0 K/mm3 03/30/17 01:33 WBC Morphology Not Reportable 03/30/17 01:33 Hypersegmented Neuts Not Reportable 03/30/17 01:33 Hyposegmented Neuts Not Reportable 03/30/17 01:33 Hypogranular Neuts Not Reportable 03/30/17 01:33 Smudge Cells Not Reportable 03/30/17 01:33 Toxic Granulation Not Reportable 03/30/17 01:33 Toxic Vacuolation Not Reportable 03/30/17 01:33 Dohle Bodies Not Reportable 03/30/17 01:33 Pelger-Huet Anomaly Not Reportable 03/30/17 01:33 Nilo Rods Not Reportable 03/30/17 01:33 Platelet Estimate Appears normal 03/30/17 01:33 Clumped Platelets Not Reportable 03/30/17 01:33 Plt Clumps, EDTA Not Reportable 03/30/17 01:33 Large Platelets Few 03/30/17 01:33 Giant Platelets Not Reportable 03/30/17 01:33 Platelet Satelliting Not Reportable 03/30/17 01:33 Plt Morphology Comment Not Reportable 03/30/17 01:33 RBC Morphology Not Reportable 03/30/17 01:33 Dimorphic RBCs Not Reportable 03/30/17 01:33 Polychromasia Not Reportable 03/30/17 01:33 Hypochromasia Not Reportable 03/30/17 01:33 Poikilocytosis Not Reportable 03/30/17 01:33 Anisocytosis Not Reportable 03/30/17 01:33 Microcytosis Not Reportable 03/30/17 01:33 Macrocytosis Not Reportable 03/30/17 01:33 Spherocytes Not Reportable 03/30/17 01:33 Pappenheimer Bodies Not Reportable 03/30/17 01:33 Sickle Cells Not Reportable 03/30/17 01:33 Target Cells Not Reportable 03/30/17 01:33 Tear Drop Cells Not Reportable 03/30/17 01:33 Ovalocytes Not Reportable 03/30/17 01:33 Helmet Cells Not Reportable 03/30/17 01:33 Patel-[place] Bodies Not Reportable 03/30/17 01:33 Alpha Rings Not Reportable 03/30/17 01:33 Shelbi Cells Not Reportable 03/30/17 01:33 Bite Cells Not Reportable 03/30/17 01:33 Crenated Cell Not Reportable 03/30/17 01:33 Elliptocytes Not Reportable 03/30/17 01:33 Acanthocytes (Spur) Not Reportable 03/30/17 01:33 Rouleaux Not Reportable 03/30/17 01:33 Hemoglobin C Crystals Not Reportable 03/30/17 01:33 Schistocytes Not Reportable 03/30/17 01:33 Malaria parasites Not Reportable 03/30/17 01:33 Michael Bodies Not Reportable 03/30/17 01:33 Hem Pathologist Commnt No 03/30/17 01:33 PT 14.7 Sec. (12.2-14.9) 03/30/17 01:33 INR 1.09 (0.87-1.13) 03/30/17 01:33 D-Dimer 335.88 ng/mlDDU (0-234) H 03/30/17 01:33 POC ABG pH 7.368 (7.35-7.45) 03/30/17 05:43 POC ABG pCO2 39.7 (35-45) 03/30/17 05:43 POC ABG pO2 114 (80-105) H 03/30/17 05:43 POC ABG HCO3 22.8 03/30/17 05:43 POC ABG Total CO2 24 03/30/17 05:43 POC ABG O2 Sat 98 03/30/17 05:43 POC ABG Base Excess -2 03/30/17 05:43 VBG pH 7.231 (7.320-7.420) L 03/30/17 01:33 FiO2 35 % 03/30/17 05:43 Sodium 144 mmol/L (137-145) 03/31/17 03:19 Potassium 4.0 mmol/L (3.6-5.0) 03/31/17 03:19 Chloride 103.7 mmol/L (98-107) 03/31/17 03:19 Carbon Dioxide 23 mmol/L (22-30) 03/31/17 03:19 Anion Gap 21 mmol/L 03/31/17 03:19 BUN 7 mg/dL (9-20) L 03/31/17 03:19 Creatinine 1.0 mg/dL (0.8-1.5) 03/31/17 03:19 Estimated GFR > 60 ml/min 03/31/17 03:19 BUN/Creatinine Ratio 7 % 03/31/17 03:19 Glucose 96 mg/dL (75-100) 03/31/17 03:19 POC Glucose 103 (70-105) 03/31/17 08:17 Lactic Acid 1.80 mmol/L (0.7-2.0) 03/30/17 04:04 Calcium 8.3 mg/dL (8.4-10.2) L 03/31/17 03:19 Total Bilirubin 0.20 mg/dL (0.1-1.2) 03/30/17 01:33 AST 27 units/L (5-40) 03/30/17 01:33 ALT 22 units/L (7-56) 03/30/17 01:33 Alkaline Phosphatase 67 units/L (35-129) 03/30/17 01:33 NT-Pro-B Natriuret Pep 151.0 pg/mL (0-900) 03/30/17 01:33 Total Protein 6.5 g/dL (6.3-8.2) 03/30/17 01:33 Albumin 3.4 g/dL (3.9-5) L 03/30/17 01:33 Albumin/Globulin Ratio 1.1 % 03/30/17 01:33 Urine Color Yellow (Yellow) 03/30/17 02:48 Urine Turbidity Clear (Clear) 03/30/17 02:48 Urine pH 5.0 (5.0-7.0) 03/30/17 02:48 Ur Specific [place] 1.016 (1.003-1.030) 03/30/17 02:48 Urine Protein 100 mg/dl mg/dL (Negative) 03/30/17 02:48 Urine Glucose (UA) Neg mg/dL (Negative) 03/30/17 02:48 Urine Ketones Tr mg/dL (Negative) 03/30/17 02:48 Urine Blood Neg (Negative) 03/30/17 02:48 Urine Nitrite Neg (Negative) 03/30/17 02:48 Urine Bilirubin Neg (Negative) 03/30/17 02:48 Urine Urobilinogen < 2.0 mg/dL (<2.0) 03/30/17 02:48 Ur Leukocyte Esterase Neg (Negative) 03/30/17 02:48 Urine WBC (Auto) 1.0 /HPF (0.0-6.0) 03/30/17 02:48 Urine RBC (Auto) 2.0 /HPF (0.0-6.0) 03/30/17 02:48 U Epithel Cells (Auto) < 1.0 /HPF (0-13.0) 03/30/17 02:48 Hyaline Casts 3 /LPF 03/30/17 02:48 Urine Mucus Few /HPF 03/30/17 02:48 Urine Sperm 1+ /HPF (HIM CODER) 03/30/17 02:48
--- NOTE | 2017-03-31 16:12 | Progress Note ---
Assessment and Plan 61 y/o male with acute respiratory failure, secondary to seizure activity and possible aspiration secondary to medication treatment for seizure in route to hospital. 1. Will sign off, wean FiO2 for sats >88% Subjective Date of service: 03/31/17 Interval history: Successful transition to floor. Pulm status appears stable but mental status is still not at baseline per report. Objective Vital Signs - 12hr 03/31/17 03/31/17 03/31/17 04:29 04:39 05:25 Temperature Pulse Rate Respiratory Rate Blood Pressure 90/70 90/70 90/70 Blood Pressure [Left] O2 Sat by Pulse Oximetry 03/31/17 03/31/17 03/31/17 05:55 06:00 06:20 Temperature Pulse Rate Respiratory Rate Blood Pressure 90/70 159/61 139/59 Blood Pressure [Left] O2 Sat by Pulse Oximetry 03/31/17 03/31/17 03/31/17 06:30 06:40 06:50 Temperature Pulse Rate 72 60 56 L Respiratory 18 19 Rate Blood Pressure 139/59 165/62 165/62 Blood Pressure [Left] O2 Sat by Pulse 99 98 Oximetry 03/31/17 03/31/17 03/31/17 07:00 07:10 07:20 Temperature Pulse Rate 76 64 76 Respiratory 24 21 25 H Rate Blood Pressure 160/57 160/57 158/58 Blood Pressure [Left] O2 Sat by Pulse 100 99 99 Oximetry 03/31/17 03/31/17 03/31/17 07:30 07:40 07:50 Temperature Pulse Rate 84 69 61 Respiratory 29 H 24 21 Rate Blood Pressure 158/58 137/53 137/53 Blood Pressure [Left] O2 Sat by Pulse 99 100 98 Oximetry 03/31/17 03/31/17 03/31/17 08:00 08:10 08:15 Temperature 99.6 F Pulse Rate 89 75 78 Respiratory 24 21 28 H Rate Blood Pressure 137/53 145/45 Blood Pressure 145/45 [Left] O2 Sat by Pulse 99 98 99 Oximetry 03/31/17 03/31/17 03/31/17 08:20 08:30 08:40 Temperature Pulse Rate 62 83 83 Respiratory 20 44 H 25 H Rate Blood Pressure 145/45 151/55 163/56 Blood Pressure [Left] O2 Sat by Pulse 99 94 100 Oximetry 03/31/17 03/31/17 03/31/17 08:50 09:00 09:10 Temperature Pulse Rate 84 116 H 137 H Respiratory 24 22 27 H Rate Blood Pressure 163/56 163/56 156/54 Blood Pressure [Left] O2 Sat by Pulse 98 98 99 Oximetry 03/31/17 03/31/17 03/31/17 09:20 09:30 09:40 Temperature Pulse Rate 61 96 H 74 Respiratory 20 18 23 Rate Blood Pressure 141/55 141/55 166/58 Blood Pressure [Left] O2 Sat by Pulse 99 99 98 Oximetry 03/31/17 03/31/17 03/31/17 09:50 10:00 10:10 Temperature Pulse Rate 88 75 76 Respiratory 27 H 23 25 H Rate Blood Pressure 166/58 158/50 158/50 Blood Pressure [Left] O2 Sat by Pulse 99 99 99 Oximetry 03/31/17 03/31/17 03/31/17 10:17 10:20 10:30 Temperature Pulse Rate 78 88 82 Respiratory 33 H 21 Rate Blood Pressure 158/50 163/78 163/78 Blood Pressure [Left] O2 Sat by Pulse 98 100 Oximetry 03/31/17 03/31/17 03/31/17 10:40 10:50 11:00 Temperature Pulse Rate 113 H 122 H 78 Respiratory 20 29 H 22 Rate Blood Pressure 163/78 167/57 152/72 Blood Pressure [Left] O2 Sat by Pulse 98 98 99 Oximetry 03/31/17 03/31/17 03/31/17 11:10 11:20 11:30 Temperature Pulse Rate 65 113 H 72 Respiratory 18 25 H 19 Rate Blood Pressure 152/72 152/72 152/72 Blood Pressure [Left] O2 Sat by Pulse 100 97 97 Oximetry 03/31/17 03/31/17 03/31/17 11:40 11:50 12:00 Temperature Pulse Rate 96 H 72 86 Respiratory 29 H 19 21 Rate Blood Pressure 173/68 173/68 173/68 Blood Pressure [Left] O2 Sat by Pulse 99 97 99 Oximetry 03/31/17 03/31/17 03/31/17 12:10 12:20 12:30 Temperature Pulse Rate 125 H 86 102 H Respiratory 23 32 H 28 H Rate Blood Pressure 160/54 167/75 167/75 Blood Pressure [Left] O2 Sat by Pulse 70 L Oximetry 03/31/17 03/31/17 12:40 13:21 Temperature 97.9 F Pulse Rate 70 57 L Respiratory 20 16 Rate Blood Pressure 175/60 164/69 Blood Pressure [Left] O2 Sat by Pulse 95 Oximetry Constitutional: no acute distress, alert Eyes: non-icteric Effort: normal Ascultation: Bilateral: diminished breath sounds Percussion: Bilateral: not dull Cardiovascular: regular rate and rhythm (sinus tachy) Gastrointestinal: normoactive bowel sounds, soft, non-tender Extremities: no edema, pink and warm Neurologic: normal mental status, non-focal exam CBC and BMP: 03/31/17 03:19 03/31/17 03:19 ABG, PT/INR, D-dimer: ABG POC ABG pH 7.368 (7.35-7.45) 03/30/17 05:43 POC ABG pCO2 39.7 (35-45) 03/30/17 05:43 POC ABG pO2 114 (80-105) H 03/30/17 05:43 POC ABG HCO3 22.8 03/30/17 05:43 POC ABG Total CO2 24 03/30/17 05:43 POC ABG O2 Sat 98 03/30/17 05:43 PT/INR, D-dimer PT 14.7 Sec. (12.2-14.9) 03/30/17 01:33 INR 1.09 (0.87-1.13) 03/30/17 01:33 D-Dimer 335.88 ng/mlDDU (0-234) H 03/30/17 01:33 Abnormal lab findings: Abnormal Labs 03/30/17 03/30/17 03/30/17 00:43 01:33 01:33 WBC 22.4 H Lymph % (Auto) [place] % (Auto) Lymph # [place] # Seg Neutrophils % Seg Neuts % (Manual) 81.0 H Lymphocytes % (Manual) 7.0 L Seg Neutrophils # Seg Neutrophils # Man 18.1 H Monocytes # (Manual) 1.3 H D-Dimer 335.88 H POC ABG pH POC ABG pCO2 POC ABG pO2 VBG pH BUN Glucose POC Glucose 173 H Lactic Acid Calcium Albumin 03/30/17 03/30/17 03/30/17 01:33 01:33 01:33 WBC Lymph % (Auto) [place] % (Auto) Lymph # [place] # Seg Neutrophils % Seg Neuts % (Manual) Lymphocytes % (Manual) Seg Neutrophils # Seg Neutrophils # Man Monocytes # (Manual) D-Dimer POC ABG pH POC ABG pCO2 POC ABG pO2 VBG pH 7.231 L BUN Glucose 127 H POC Glucose Lactic Acid 4.10 H* Calcium 7.8 L Albumin 3.4 L 03/30/17 03/30/17 03/31/17 02:05 05:43 03:19 WBC 15.3 H Lymph % (Auto) 7.1 L [place] % (Auto) 9.4 H Lymph # 1.1 L [place] # 1.4 H Seg Neutrophils % 82.9 H Seg Neuts % (Manual) Lymphocytes % (Manual) Seg Neutrophils # 12.7 H Seg Neutrophils # Man Monocytes # (Manual) D-Dimer POC ABG pH 7.334 L POC ABG pCO2 47.9 H POC ABG pO2 548 H 114 H VBG pH BUN Glucose POC Glucose Lactic Acid Calcium Albumin 03/31/17 03:19 WBC Lymph % (Auto) [place] % (Auto) Lymph # [place] # Seg Neutrophils % Seg Neuts % (Manual) Lymphocytes % (Manual) Seg Neutrophils # Seg Neutrophils # Man Monocytes # (Manual) D-Dimer POC ABG pH POC ABG pCO2 POC ABG pO2 VBG pH BUN 7 L Glucose POC Glucose Lactic Acid Calcium 8.3 L Albumin
[2017-03-31] MEDS: D5/0.45NS 1,000 ML IV SCH (22:52)
[2017-04-01] MEDS: ZOSYN/NS 4.5GM/100ML 4.5 GM/100 ML VIAL IV SCH ×3 (05:05→21:03)
[2017-04-01 05:31] LABS: Hemoglobin 13.5 gm/dl (11.8-15.2); Mean Corpuscular HGB Conc 34 % (32-34); Mean Corpuscular Hemoglobin 31 pg (28-32); Mean Corpuscular Volume 90 fl (84-94); Platelet Count 249 K/mm3 (140-440); Red Blood Count 4.43 M/mm3 (3.65-5.03); Red Cell Distribution Width 14.9 % (13.2-15.2); White Blood Count 16.2 K/mm3 (4.5-11.0)
[2017-04-01 05:53] LABS: Calcium 8.2 mg/dL (8.4-10.2); Chloride 106.6 mmol/L (98-107); Potassium 3.8 mmol/L (3.6-5.0)
[2017-04-01] MEDS: KEPPRA 1,000 MG/NS 0.75% 100ML 1,000 MG/100 ML BAG IV SCH ×2 (05:58→17:33)
[2017-04-01] MEDS: HEPARIN SUB-Q SCH ×3 (06:10→21:02)
[2017-04-01] MEDS: LEVAQUIN 750MG/150ML 750 MG/150 ML BAG IV SCH (06:30)
--- NOTE | 2017-04-01 09:25 | Ultrasound Report ---
RIGHT UPPER QUADRANT ULTRASOUND: HISTORY: Liver lesion. Technique: Transabdominal ultrasound imaging with Doppler interrogation. FINDINGS: Correlation is made with the CT abdomen pelvis with contrast performed 03/30/17. Ultrasound also demonstrates multiple simple appearing hepatic cysts. The largest cyst measures 4.6 cm in diameter in the anterior right hepatic lobe. The remaining liver parenchyma is within normal limits. No suspicious liver mass or surface nodularity is appreciated. The biliary system, pancreas, right kidney and aorta are within normal limits. No perihepatic ascites. IMPRESSION: Multiple liver cysts. No suspicious liver mass identified.
[2017-04-01] MEDS: LOPRESSOR PO SCH ×2 (09:39→21:02)
[2017-04-01] MEDS: BABY ASPIRIN PO SCH (09:40)
[2017-04-01] MEDS: PEPCID IV SCH ×2 (09:41→21:02)
--- NOTE | 2017-04-01 13:32 | Progress Note ---
Assessment and Plan Assessment and plan: Patient is a 61 yo man from [facility] with a h/o Dementia, schizophrenia and sz disorder who presented with intractable seizures requiring intubation, now extubated. I called [facility], he was located on [address]. Trying to determine baseline, spoke with his nurse Abad TALBERT==>he on psych unit. His baseline: He ambulates, feeds him, dress himself, ativan in the past causes him to be confused/agitated. He has been intubated for seizures before and ativan always makes him confused but he eventually will return to his baseline. CT angiogram of the chest reported as no PE or aortic dissection, small right pleural effusion with atelectatic changes in the right lung base, 12.4 mm low density lesion in the left thyroid lobe, further evaluation recommended with outpatient thyroid sonography, multiple cystic lesions throughout the liver measuring up to 5 cm in diameter, sonographic evaluation of liver is recommended for better evaluation. CT brain reported as mild ethmoid and maxillary sinusitis, no acute stroke or hemorrhage, mild to moderate generalized volume loss -Acute hypoxic respiratory failure s/p I/E: continue to wean O2 -Status epilepitus: iv keppra, consult neurology -Acute encephalopathy: restraints, use Haldol -Liver lesion: Get ultrasound of the liver gallbladder. -Acute maxillary sinusitis with sepsis, present on admission: stop IV vancomycin , continue IV Levaquin -DVT prophylaxis: Subcutaneous heparin He is actually doing better mentally, a/o x 2 now. Hopefully back to [place] in 1-2 days. Neurology hasn't seen yet History Interval history: Patient was seen and examined. Follow-up on current diagnosis. Overnight uneventful. Patient's still altered. Imaging, nursing note, chart, labs and old chart reviewed. Hospitalist Physical - Physical exam Narrative exam: GEN: WDWN, NAD, AWAKE, ALERT, ORIENTATED 2 HEENT: NCAT, EOMI, PERRL, OP Clear NECK: supple, no adenopathy, no thyromegaly, no JVD CVS/HEART: RRR, NORMAL S1S2, NO JVD, pulses present bilaterally CHEST/LUNGS: CTA B, Symmetrical chest expansion, good air entry bilaterally GI/Abdomen: soft, NTND, good bowel sounds, no guarding or rebound /Bladder: no suprapubic tenderness, no CVA or paraspinal tenderness EXT/Skin: no c/c/e, no obvious rash MSK: FROM x 4 Neuro: CN 2-12 grossly intact, no new focal deficits Psych: Agitated and confused - Constitutional Vitals: Temp Pulse Resp BP Pulse Ox 97.6 F 84 18 160/77 97 04/01/17 08:45 04/01/17 09:39 04/01/17 10:00 04/01/17 09:39 04/01/17 08:45 Results - Labs CBC & Chem 7: 04/01/17 04:47 04/01/17 04:47 Labs: Laboratory Last Values WBC 16.2 K/mm3 (4.5-11.0) H 04/01/17 04:47 RBC 4.43 M/mm3 (3.65-5.03) 04/01/17 04:47 Hgb 13.5 gm/dl (11.8-15.2) 04/01/17 04:47 Hct 40.0 % (35.5-45.6) 04/01/17 04:47 MCV 90 fl (84-94) 04/01/17 04:47 MCH 31 pg (28-32) 04/01/17 04:47 MCHC 34 % (32-34) 04/01/17 04:47 RDW 14.9 % (13.2-15.2) 04/01/17 04:47 Plt Count 249 K/mm3 (140-440) 04/01/17 04:47 Lymph % (Auto) 7.1 % (13.4-35.0) L 03/31/17 03:19 [place] % (Auto) 9.4 % (0.0-7.3) H 03/31/17 03:19 Eos % (Auto) 0.3 % (0.0-4.3) 03/31/17 03:19 Baso % (Auto) 0.3 % (0.0-1.8) 03/31/17 03:19 Lymph # 1.1 K/mm3 (1.2-5.4) L 03/31/17 03:19 [place] # 1.4 K/mm3 (0.0-0.8) H 03/31/17 03:19 Eos # 0.0 K/mm3 (0.0-0.4) 03/31/17 03:19 Baso # 0.0 K/mm3 (0.0-0.1) 03/31/17 03:19 Add Manual Diff Complete 03/30/17 01:33 Total Counted 100 03/30/17 01:33 Seg Neutrophils % 82.9 % (40.0-70.0) H 03/31/17 03:19 Seg Neuts % (Manual) 81.0 % (40.0-70.0) H 03/30/17 01:33 Band Neutrophils % 6.0 % 03/30/17 01:33 Lymphocytes % (Manual) 7.0 % (13.4-35.0) L 03/30/17 01:33 Reactive Lymphs % (Man) 0 % 03/30/17 01:33 Monocytes % (Manual) 6.0 % (0.0-7.3) 03/30/17 01:33 Eosinophils % (Manual) 0 % (0.0-4.3) 03/30/17 01:33 Basophils % (Manual) 0 % (0.0-1.8) 03/30/17 01:33 Metamyelocytes % 0 % 03/30/17 01:33 Myelocytes % 0 % 03/30/17 01:33 Promyelocytes % 0 % 03/30/17 01:33 Blast Cells % 0 % 03/30/17 01:33 Nucleated RBC % Not Reportable 03/30/17 01:33 Seg Neutrophils # 12.7 K/mm3 (1.8-7.7) H 03/31/17 03:19 Seg Neutrophils # Man 18.1 K/mm3 (1.8-7.7) H 03/30/17 01:33 Band Neutrophils # 1.3 K/mm3 03/30/17 01:33 Lymphocytes # (Manual) 1.6 K/mm3 (1.2-5.4) 03/30/17 01:33 Abs React Lymphs (Man) 0.0 K/mm3 03/30/17 01:33 Monocytes # (Manual) 1.3 K/mm3 (0.0-0.8) H 03/30/17 01:33 Eosinophils # (Manual) 0.0 K/mm3 (0.0-0.4) 03/30/17 01:33 Basophils # (Manual) 0.0 K/mm3 (0.0-0.1) 03/30/17 01:33 Metamyelocytes # 0.0 K/mm3 03/30/17 01:33 Myelocytes # 0.0 K/mm3 03/30/17 01:33 Promyelocytes # 0.0 K/mm3 03/30/17 01:33 Blast Cells # 0.0 K/mm3 03/30/17 01:33 WBC Morphology Not Reportable 03/30/17 01:33 Hypersegmented Neuts Not Reportable 03/30/17 01:33 Hyposegmented Neuts Not Reportable 03/30/17 01:33 Hypogranular Neuts Not Reportable 03/30/17 01:33 Smudge Cells Not Reportable 03/30/17 01:33 Toxic Granulation Not Reportable 03/30/17 01:33 Toxic Vacuolation Not Reportable 03/30/17 01:33 Dohle Bodies Not Reportable 03/30/17 01:33 Pelger-Huet Anomaly Not Reportable 03/30/17 01:33 Nilo Rods Not Reportable 03/30/17 01:33 Platelet Estimate Appears normal 03/30/17 01:33 Clumped Platelets Not Reportable 03/30/17 01:33 Plt Clumps, EDTA Not Reportable 03/30/17 01:33 Large Platelets Few 03/30/17 01:33 Giant Platelets Not Reportable 03/30/17 01:33 Platelet Satelliting Not Reportable 03/30/17 01:33 Plt Morphology Comment Not Reportable 03/30/17 01:33 RBC Morphology Not Reportable 03/30/17 01:33 Dimorphic RBCs Not Reportable 03/30/17 01:33 Polychromasia Not Reportable 03/30/17 01:33 Hypochromasia Not Reportable 03/30/17 01:33 Poikilocytosis Not Reportable 03/30/17 01:33 Anisocytosis Not Reportable 03/30/17 01:33 Microcytosis Not Reportable 03/30/17 01:33 Macrocytosis Not Reportable 03/30/17 01:33 Spherocytes Not Reportable 03/30/17 01:33 Pappenheimer Bodies Not Reportable 03/30/17 01:33 Sickle Cells Not Reportable 03/30/17 01:33 Target Cells Not Reportable 03/30/17 01:33 Tear Drop Cells Not Reportable 03/30/17 01:33 Ovalocytes Not Reportable 03/30/17 01:33 Helmet Cells Not Reportable 03/30/17 01:33 Patel-Ismay Bodies Not Reportable 03/30/17 01:33 [place] Rings Not Reportable 03/30/17 01:33 [place] Cells Not Reportable 03/30/17 01:33 Bite Cells Not Reportable 03/30/17 01:33 Crenated Cell Not Reportable 03/30/17 01:33 Elliptocytes Not Reportable 03/30/17 01:33 Acanthocytes (Spur) Not Reportable 03/30/17 01:33 Rouleaux Not Reportable 03/30/17 01:33 Hemoglobin C Crystals Not Reportable 03/30/17 01:33 Schistocytes Not Reportable 03/30/17 01:33 Malaria parasites Not Reportable 03/30/17 01:33 Michael Bodies Not Reportable 03/30/17 01:33 Hem Pathologist Commnt No 03/30/17 01:33 PT 14.7 Sec. (12.2-14.9) 03/30/17 01:33 INR 1.09 (0.87-1.13) 03/30/17 01:33 D-Dimer 335.88 ng/mlDDU (0-234) H 03/30/17 01:33 POC ABG pH 7.368 (7.35-7.45) 03/30/17 05:43 POC ABG pCO2 39.7 (35-45) 03/30/17 05:43 POC ABG pO2 114 (80-105) H 03/30/17 05:43 POC ABG HCO3 22.8 03/30/17 05:43 POC ABG Total CO2 24 03/30/17 05:43 POC ABG O2 Sat 98 03/30/17 05:43 POC ABG Base Excess -2 03/30/17 05:43 VBG pH 7.231 (7.320-7.420) L 03/30/17 01:33 FiO2 35 % 03/30/17 05:43 Sodium 145 mmol/L (137-145) 04/01/17 04:47 Potassium 3.8 mmol/L (3.6-5.0) 04/01/17 04:47 Chloride 106.6 mmol/L (98-107) 04/01/17 04:47 Carbon Dioxide 24 mmol/L (22-30) 04/01/17 04:47 Anion Gap 18 mmol/L 04/01/17 04:47 BUN 10 mg/dL (9-20) 04/01/17 04:47 Creatinine 1.7 mg/dL (0.8-1.5) H D 04/01/17 04:47 Estimated GFR 50 ml/min 04/01/17 04:47 BUN/Creatinine Ratio 6 % 04/01/17 04:47 Glucose 107 mg/dL (75-100) H 04/01/17 04:47 POC Glucose 97 (70-105) 04/01/17 12:40 Lactic Acid 1.80 mmol/L (0.7-2.0) 03/30/17 04:04 Calcium 8.2 mg/dL (8.4-10.2) L 04/01/17 04:47 Total Bilirubin 0.20 mg/dL (0.1-1.2) 03/30/17 01:33 AST 27 units/L (5-40) 03/30/17 01:33 ALT 22 units/L (7-56) 03/30/17 01:33 Alkaline Phosphatase 67 units/L (35-129) 03/30/17 01:33 NT-Pro-B Natriuret Pep 151.0 pg/mL (0-900) 03/30/17 01:33 Total Protein 6.5 g/dL (6.3-8.2) 03/30/17 01:33 Albumin 3.4 g/dL (3.9-5) L 03/30/17 01:33 Albumin/Globulin Ratio 1.1 % 03/30/17 01:33 Urine Color Yellow (Yellow) 03/30/17 02:48 Urine Turbidity Clear (Clear) 03/30/17 02:48 Urine pH 5.0 (5.0-7.0) 03/30/17 02:48 Ur Specific [place] 1.016 (1.003-1.030) 03/30/17 02:48 Urine Protein 100 mg/dl mg/dL (Negative) 03/30/17 02:48 Urine Glucose (UA) Neg mg/dL (Negative) 03/30/17 02:48 Urine Ketones Tr mg/dL (Negative) 03/30/17 02:48 Urine Blood Neg (Negative) 03/30/17 02:48 Urine Nitrite Neg (Negative) 03/30/17 02:48 Urine Bilirubin Neg (Negative) 03/30/17 02:48 Urine Urobilinogen < 2.0 mg/dL (<2.0) 03/30/17 02:48 Ur Leukocyte Esterase Neg (Negative) 03/30/17 02:48 Urine WBC (Auto) 1.0 /HPF (0.0-6.0) 03/30/17 02:48 Urine RBC (Auto) 2.0 /HPF (0.0-6.0) 03/30/17 02:48 U Epithel Cells (Auto) < 1.0 /HPF (0-13.0) 03/30/17 02:48 Hyaline Casts 3 /LPF 03/30/17 02:48 Urine Mucus Few /HPF 03/30/17 02:48 Urine Sperm 1+ /HPF ([employer]) 03/30/17 02:48
--- NOTE | 2017-04-01 16:22 | Consultation ---
History of Present Illness Consult date: 04/01/17 History of present illness: refractory seizures plan EEG current meds are reviewed and seizure control should be good on present meds Past History Past Medical History: hyperlipidemia, other (seizure disorder, dementia) Past Surgical History: Other (Unknown) Social history: full code, other (lives in SNF). denies: smoking, alcohol abuse Family history: hypertension Medications and Allergies Allergies Allergy/AdvReac Type Severity Reaction Status Date / Time No Known Allergies Allergy Verified 01/21/17 22:27 Home Medications Medication Instructions Recorded Confirmed Last Taken Type Cholecalciferol (Vitamin D3) 1,000 unit PO DAILY 01/22/17 03/30/17 Unknown History [Children's Vitamin D3 1,000 unit CHEW] Sennosides [Senna] 17.2 mg PO DAILY 01/22/17 03/30/17 Unknown History Amoxicillin/K Clav Tab [Augmentin 1 tab PO Q12HR #10 tab 01/29/17 03/30/17 Unknown Rx 875 mg] Aspirin [Aspirin BABY CHEW TAB] 81 mg PO QDAY #30 tab.chew 01/29/17 03/30/17 Unknown Rx AtorvaSTATin [Lipitor] 40 mg PO QHS #30 tablet 01/29/17 03/30/17 Unknown Rx Donepezil [Aricept] 10 mg PO QDAY #30 tablet 01/29/17 03/30/17 Unknown Rx Famotidine [Pepcid] 20 mg PO BID #60 tablet 01/29/17 03/30/17 Unknown Rx Metoprolol [Lopressor TAB] 12.5 mg PO BID #60 tablet 01/29/17 03/30/17 Unknown Rx Potassium Chloride [K-Dur] 20 meq PO QDAY #20 tablet 01/29/17 03/30/17 Unknown Rx levETIRAcetam [Keppra TAB] 1,000 mg PO BID #60 tablet 01/29/17 03/30/17 Unknown Rx Active Meds: Active Medications Al Hydrox/Mg Hydrox/Simethicone (Alum-Mag Hydrox-Simeth [id number]/5ml) 30 ml PO Q4H PRN PRN Reason: Indigestion Albuterol (Proventil) 2.5 mg IH Q3HRT PRN PRN Reason: Shortness Of Breath Aspirin (Baby Aspirin) 81 mg PO QDAY [facility] Last Admin: 04/01/17 09:40 Dose: 81 mg Bisacodyl (Dulcolax) 10 mg NC QDAY PRN PRN Reason: constipation unrelieved by MOM Famotidine (Pepcid) 20 mg IV BID [facility] Last Admin: 04/01/17 09:41 Dose: 20 mg Haloperidol Lactate (Haldol) 5 mg IM Q6H PRN PRN Reason: Agitation Last Admin: 03/31/17 01:47 Dose: 5 mg Heparin Sodium (Porcine) (Heparin) 5,000 unit SUB-Q Q8HR [facility] Last Admin: 04/01/17 06:10 Dose: 5,000 unit Hydralazine HCl (Apresoline) 10 mg IV Q4HR PRN PRN Reason: Blood Pressure Levetiracetam (Keppra 1,000 Mg/Ns 0.75% 100ml) 1,000 mg in 100 mls @ 300 mls/ hr IV Q12H [facility] Last Admin: 04/01/17 05:58 Dose: 300 mls/hr Piperacillin Sod/Tazobactam Sod (Zosyn/Ns 4.5gm/100ml) 4.5 gm in 100 mls @ 200 mls/hr IV Q8HR [facility] PRN Reason: Protocol Last Admin: 04/01/17 05:05 Dose: 200 mls/hr Levofloxacin/Dextrose (Levaquin 750mg/150ml) 750 mg in 150 mls @ 100 mls/hr IV Q24H [facility] PRN Reason: Protocol Last Admin: 04/01/17 06:30 Dose: 100 mls/hr Dextrose/Sodium Chloride (D5/0.45ns) 1,000 mls @ 75 mls/hr IV DIRECT [facility] Last Admin: 03/31/17 22:52 Dose: 75 mls/hr Magnesium Hydroxide (Milk Of Magnesia) 30 ml PO Q4H PRN PRN Reason: Constipation Metoprolol Tartrate (Lopressor) 12.5 mg PO BID [facility] Last Admin: 04/01/17 09:39 Dose: 12.5 mg Morphine Sulfate (Morphine) 2 mg IV Q4H PRN PRN Reason: Pain, Moderate (4-6) Physical Examination - Vital Signs Vital Signs: Vital Signs Resp 18 03/30/17 00:46 Results - Laboratory Findings CBC and BMP: 04/01/17 04:47 04/01/17 04:47 Abnormal Lab Findings: Abnormal Labs 03/30/17 03/30/17 03/30/17 00:43 01:33 01:33 WBC 22.4 H Lymph % (Auto) [place] % (Auto) Lymph # [place] # Seg Neutrophils % Seg Neuts % (Manual) 81.0 H Lymphocytes % (Manual) 7.0 L Seg Neutrophils # Seg Neutrophils # Man 18.1 H Monocytes # (Manual) 1.3 H D-Dimer 335.88 H POC ABG pH POC ABG pCO2 POC ABG pO2 VBG pH BUN Creatinine Glucose POC Glucose 173 H Lactic Acid Calcium Albumin 03/30/17 03/30/17 03/30/17 01:33 01:33 01:33 WBC Lymph % (Auto) [place] % (Auto) Lymph # [place] # Seg Neutrophils % Seg Neuts % (Manual) Lymphocytes % (Manual) Seg Neutrophils # Seg Neutrophils # Man Monocytes # (Manual) D-Dimer POC ABG pH POC ABG pCO2 POC ABG pO2 VBG pH 7.231 L BUN Creatinine Glucose 127 H POC Glucose Lactic Acid 4.10 H* Calcium 7.8 L Albumin 3.4 L 03/30/17 03/30/17 03/31/17 02:05 05:43 03:19 WBC 15.3 H Lymph % (Auto) 7.1 L [place] % (Auto) 9.4 H Lymph # 1.1 L [place] # 1.4 H Seg Neutrophils % 82.9 H Seg Neuts % (Manual) Lymphocytes % (Manual) Seg Neutrophils # 12.7 H Seg Neutrophils # Man Monocytes # (Manual) D-Dimer POC ABG pH 7.334 L POC ABG pCO2 47.9 H POC ABG pO2 548 H 114 H VBG pH BUN Creatinine Glucose POC Glucose Lactic Acid Calcium Albumin 03/31/17 03/31/17 04/01/17 03:19 16:42 04:47 WBC 16.2 H Lymph % (Auto) [place] % (Auto) Lymph # [place] # Seg Neutrophils % Seg Neuts % (Manual) Lymphocytes % (Manual) Seg Neutrophils # Seg Neutrophils # Man Monocytes # (Manual) D-Dimer POC ABG pH POC ABG pCO2 POC ABG pO2 VBG pH BUN 7 L Creatinine Glucose POC Glucose 69 L Lactic Acid Calcium 8.3 L Albumin 04/01/17 04:47 WBC Lymph % (Auto) [place] % (Auto) Lymph # [place] # Seg Neutrophils % Seg Neuts % (Manual) Lymphocytes % (Manual) Seg Neutrophils # Seg Neutrophils # Man Monocytes # (Manual) D-Dimer POC ABG pH POC ABG pCO2 POC ABG pO2 VBG pH BUN Creatinine 1.7 H D Glucose 107 H POC Glucose Lactic Acid Calcium 8.2 L Albumin
[2017-04-01] MEDS: D5/0.45NS 1,000 ML IV SCH (18:51)
[2017-04-01] MEDS: HALDOL IM PRN (20:47)
[2017-04-02] MEDS: ZOSYN/NS 4.5GM/100ML 4.5 GM/100 ML VIAL IV SCH (05:28)
[2017-04-02] MEDS: KEPPRA 1,000 MG/NS 0.75% 100ML 1,000 MG/100 ML BAG IV SCH (05:28)
[2017-04-02] MEDS: HEPARIN SUB-Q SCH ×3 (06:19→22:25)
[2017-04-02] MEDS: LEVAQUIN 750MG/150ML 750 MG/150 ML BAG IV SCH (06:20)
[2017-04-02] MEDS: LOPRESSOR PO SCH ×2 (09:33→22:23)
[2017-04-02] MEDS: BABY ASPIRIN PO SCH (09:33)
[2017-04-02] MEDS: PEPCID IV SCH (09:34)
--- NOTE | 2017-04-02 16:20 | Progress Note ---
Assessment and Plan Assessment and plan: Patient is a 61 yo man from [facility] with a h/o Dementia, schizophrenia and sz disorder who presented with intractable seizures requiring intubation, now extubated. I called [facility], he was located on [address]. Trying to determine baseline, spoke with his nurse Abad TALBERT==>he on psych unit. His baseline: He ambulates, feeds him, dress himself, ativan in the past causes him to be confused/agitated. He has been intubated for seizures before and ativan always makes him confused but he eventually will return to his baseline. CT angiogram of the chest reported as no PE or aortic dissection, small right pleural effusion with atelectatic changes in the right lung base, 12.4 mm low density lesion in the left thyroid lobe, further evaluation recommended with outpatient thyroid sonography, multiple cystic lesions throughout the liver measuring up to 5 cm in diameter, sonographic evaluation of liver is recommended for better evaluation. CT brain reported as mild ethmoid and maxillary sinusitis, no acute stroke or hemorrhage, mild to moderate generalized volume loss -Acute hypoxic respiratory failure s/p I/E: continue to wean O2 -Status epilepitus: iv keppra, consult neurology -Acute encephalopathy: restraints, use Haldol -Liver lesion: Get ultrasound of the liver gallbladder. -Acute maxillary sinusitis with sepsis, present on admission: stop IV vancomycin , continue IV Levaquin -DVT prophylaxis: Subcutaneous heparin He is actually doing better mentally, a/o x 2 now. Hopefully back to [place] in 1-2 days. Neurology hasn't seen yet History Interval history: Patient was seen and examined. Follow-up on current diagnosis. Overnight uneventful. Patient's still altered. Imaging, nursing note, chart, labs and old chart reviewed. Hospitalist Physical - Physical exam Narrative exam: GEN: WDWN, NAD, AWAKE, ALERT, ORIENTATED 2 HEENT: NCAT, EOMI, PERRL, OP Clear NECK: supple, no adenopathy, no thyromegaly, no JVD CVS/HEART: RRR, NORMAL S1S2, NO JVD, pulses present bilaterally CHEST/LUNGS: CTA B, Symmetrical chest expansion, good air entry bilaterally GI/Abdomen: soft, NTND, good bowel sounds, no guarding or rebound /Bladder: no suprapubic tenderness, no CVA or paraspinal tenderness EXT/Skin: no c/c/e, no obvious rash MSK: FROM x 4 Neuro: CN 2-12 grossly intact, no new focal deficits Psych: Agitated and confused - Constitutional Vitals: Temp Pulse Resp BP Pulse Ox 98.0 F 82 19 117/79 97 04/02/17 08:04 04/02/17 09:33 04/02/17 08:04 04/02/17 09:33 04/02/17 08:04 Results - Labs CBC & Chem 7: 04/01/17 04:47 04/01/17 04:47 Labs: Laboratory Last Values WBC 16.2 K/mm3 (4.5-11.0) H 04/01/17 04:47 RBC 4.43 M/mm3 (3.65-5.03) 04/01/17 04:47 Hgb 13.5 gm/dl (11.8-15.2) 04/01/17 04:47 Hct 40.0 % (35.5-45.6) 04/01/17 04:47 MCV 90 fl (84-94) 04/01/17 04:47 MCH 31 pg (28-32) 04/01/17 04:47 MCHC 34 % (32-34) 04/01/17 04:47 RDW 14.9 % (13.2-15.2) 04/01/17 04:47 Plt Count 249 K/mm3 (140-440) 04/01/17 04:47 Lymph % (Auto) 7.1 % (13.4-35.0) L 03/31/17 03:19 [place] % (Auto) 9.4 % (0.0-7.3) H 03/31/17 03:19 Eos % (Auto) 0.3 % (0.0-4.3) 03/31/17 03:19 Baso % (Auto) 0.3 % (0.0-1.8) 03/31/17 03:19 Lymph # 1.1 K/mm3 (1.2-5.4) L 03/31/17 03:19 [place] # 1.4 K/mm3 (0.0-0.8) H 03/31/17 03:19 Eos # 0.0 K/mm3 (0.0-0.4) 03/31/17 03:19 Baso # 0.0 K/mm3 (0.0-0.1) 03/31/17 03:19 Add Manual Diff Complete 03/30/17 01:33 Total Counted 100 03/30/17 01:33 Seg Neutrophils % 82.9 % (40.0-70.0) H 03/31/17 03:19 Seg Neuts % (Manual) 81.0 % (40.0-70.0) H 03/30/17 01:33 Band Neutrophils % 6.0 % 03/30/17 01:33 Lymphocytes % (Manual) 7.0 % (13.4-35.0) L 03/30/17 01:33 Reactive Lymphs % (Man) 0 % 03/30/17 01:33 Monocytes % (Manual) 6.0 % (0.0-7.3) 03/30/17 01:33 Eosinophils % (Manual) 0 % (0.0-4.3) 03/30/17 01:33 Basophils % (Manual) 0 % (0.0-1.8) 03/30/17 01:33 Metamyelocytes % 0 % 03/30/17 01:33 Myelocytes % 0 % 03/30/17 01:33 Promyelocytes % 0 % 03/30/17 01:33 Blast Cells % 0 % 03/30/17 01:33 Nucleated RBC % Not Reportable 03/30/17 01:33 Seg Neutrophils # 12.7 K/mm3 (1.8-7.7) H 03/31/17 03:19 Seg Neutrophils # Man 18.1 K/mm3 (1.8-7.7) H 03/30/17 01:33 Band Neutrophils # 1.3 K/mm3 03/30/17 01:33 Lymphocytes # (Manual) 1.6 K/mm3 (1.2-5.4) 03/30/17 01:33 Abs React Lymphs (Man) 0.0 K/mm3 03/30/17 01:33 Monocytes # (Manual) 1.3 K/mm3 (0.0-0.8) H 03/30/17 01:33 Eosinophils # (Manual) 0.0 K/mm3 (0.0-0.4) 03/30/17 01:33 Basophils # (Manual) 0.0 K/mm3 (0.0-0.1) 03/30/17 01:33 Metamyelocytes # 0.0 K/mm3 03/30/17 01:33 Myelocytes # 0.0 K/mm3 03/30/17 01:33 Promyelocytes # 0.0 K/mm3 03/30/17 01:33 Blast Cells # 0.0 K/mm3 03/30/17 01:33 WBC Morphology Not Reportable 03/30/17 01:33 Hypersegmented Neuts Not Reportable 03/30/17 01:33 Hyposegmented Neuts Not Reportable 03/30/17 01:33 Hypogranular Neuts Not Reportable 03/30/17 01:33 Smudge Cells Not Reportable 03/30/17 01:33 Toxic Granulation Not Reportable 03/30/17 01:33 Toxic Vacuolation Not Reportable 03/30/17 01:33 Dohle Bodies Not Reportable 03/30/17 01:33 Pelger-Huet Anomaly Not Reportable 03/30/17 01:33 Nilo Rods Not Reportable 03/30/17 01:33 Platelet Estimate Appears normal 03/30/17 01:33 Clumped Platelets Not Reportable 03/30/17 01:33 Plt Clumps, EDTA Not Reportable 03/30/17 01:33 Large Platelets Few 03/30/17 01:33 Giant Platelets Not Reportable 03/30/17 01:33 Platelet Satelliting Not Reportable 03/30/17 01:33 Plt Morphology Comment Not Reportable 03/30/17 01:33 RBC Morphology Not Reportable 03/30/17 01:33 Dimorphic RBCs Not Reportable 03/30/17 01:33 Polychromasia Not Reportable 03/30/17 01:33 Hypochromasia Not Reportable 03/30/17 01:33 Poikilocytosis Not Reportable 03/30/17 01:33 Anisocytosis Not Reportable 03/30/17 01:33 Microcytosis Not Reportable 03/30/17 01:33 Macrocytosis Not Reportable 03/30/17 01:33 Spherocytes Not Reportable 03/30/17 01:33 Pappenheimer Bodies Not Reportable 03/30/17 01:33 Sickle Cells Not Reportable 03/30/17 01:33 Target Cells Not Reportable 03/30/17 01:33 Tear Drop Cells Not Reportable 03/30/17 01:33 Ovalocytes Not Reportable 03/30/17 01:33 Helmet Cells Not Reportable 03/30/17 01:33 Patel-Holden Bodies Not Reportable 03/30/17 01:33 [place] Rings Not Reportable 03/30/17 01:33 [place] Cells Not Reportable 03/30/17 01:33 Bite Cells Not Reportable 03/30/17 01:33 Crenated Cell Not Reportable 03/30/17 01:33 Elliptocytes Not Reportable 03/30/17 01:33 Acanthocytes (Spur) Not Reportable 03/30/17 01:33 Rouleaux Not Reportable 03/30/17 01:33 Hemoglobin C Crystals Not Reportable 03/30/17 01:33 Schistocytes Not Reportable 03/30/17 01:33 Malaria parasites Not Reportable 03/30/17 01:33 Michael Bodies Not Reportable 03/30/17 01:33 Hem Pathologist Commnt No 03/30/17 01:33 PT 14.7 Sec. (12.2-14.9) 03/30/17 01:33 INR 1.09 (0.87-1.13) 03/30/17 01:33 D-Dimer 335.88 ng/mlDDU (0-234) H 03/30/17 01:33 POC ABG pH 7.368 (7.35-7.45) 03/30/17 05:43 POC ABG pCO2 39.7 (35-45) 03/30/17 05:43 POC ABG pO2 114 (80-105) H 03/30/17 05:43 POC ABG HCO3 22.8 03/30/17 05:43 POC ABG Total CO2 24 03/30/17 05:43 POC ABG O2 Sat 98 03/30/17 05:43 POC ABG Base Excess -2 03/30/17 05:43 VBG pH 7.231 (7.320-7.420) L 03/30/17 01:33 FiO2 35 % 03/30/17 05:43 Sodium 145 mmol/L (137-145) 04/01/17 04:47 Potassium 3.8 mmol/L (3.6-5.0) 04/01/17 04:47 Chloride 106.6 mmol/L (98-107) 04/01/17 04:47 Carbon Dioxide 24 mmol/L (22-30) 04/01/17 04:47 Anion Gap 18 mmol/L 04/01/17 04:47 BUN 10 mg/dL (9-20) 04/01/17 04:47 Creatinine 1.7 mg/dL (0.8-1.5) H D 04/01/17 04:47 Estimated GFR 50 ml/min 04/01/17 04:47 BUN/Creatinine Ratio 6 % 04/01/17 04:47 Glucose 107 mg/dL (75-100) H 04/01/17 04:47 POC Glucose 108 (70-105) H 04/02/17 11:40 Lactic Acid 1.80 mmol/L (0.7-2.0) 03/30/17 04:04 Calcium 8.2 mg/dL (8.4-10.2) L 04/01/17 04:47 Total Bilirubin 0.20 mg/dL (0.1-1.2) 03/30/17 01:33 AST 27 units/L (5-40) 03/30/17 01:33 ALT 22 units/L (7-56) 03/30/17 01:33 Alkaline Phosphatase 67 units/L (35-129) 03/30/17 01:33 NT-Pro-B Natriuret Pep 151.0 pg/mL (0-900) 03/30/17 01:33 Total Protein 6.5 g/dL (6.3-8.2) 03/30/17 01:33 Albumin 3.4 g/dL (3.9-5) L 03/30/17 01:33 Albumin/Globulin Ratio 1.1 % 03/30/17 01:33 Urine Color Yellow (Yellow) 03/30/17 02:48 Urine Turbidity Clear (Clear) 03/30/17 02:48 Urine pH 5.0 (5.0-7.0) 03/30/17 02:48 Ur Specific [place] 1.016 (1.003-1.030) 03/30/17 02:48 Urine Protein 100 mg/dl mg/dL (Negative) 03/30/17 02:48 Urine Glucose (UA) Neg mg/dL (Negative) 03/30/17 02:48 Urine Ketones Tr mg/dL (Negative) 03/30/17 02:48 Urine Blood Neg (Negative) 03/30/17 02:48 Urine Nitrite Neg (Negative) 03/30/17 02:48 Urine Bilirubin Neg (Negative) 03/30/17 02:48 Urine Urobilinogen < 2.0 mg/dL (<2.0) 03/30/17 02:48 Ur Leukocyte Esterase Neg (Negative) 03/30/17 02:48 Urine WBC (Auto) 1.0 /HPF (0.0-6.0) 03/30/17 02:48 Urine RBC (Auto) 2.0 /HPF (0.0-6.0) 03/30/17 02:48 U Epithel Cells (Auto) < 1.0 /HPF (0-13.0) 03/30/17 02:48 Hyaline Casts 3 /LPF 03/30/17 02:48 Urine Mucus Few /HPF 03/30/17 02:48 Urine Sperm 1+ /HPF (EXTRUSION DIE CORRECTOR) 03/30/17 02:48
[2017-04-02] MEDS: KEPPRA PO SCH (22:24)
[2017-04-02] MEDS: PEPCID PO SCH (22:24)
[2017-04-03] MEDS: HEPARIN SUB-Q SCH ×2 (06:53→14:00)
[2017-04-03] MEDS: KEPPRA PO SCH (09:47)
[2017-04-03] MEDS: LOPRESSOR PO SCH (09:48)
[2017-04-03] MEDS: BABY ASPIRIN PO SCH (09:48)
[2017-04-03] MEDS: PEPCID PO SCH (09:48)
[2017-04-03] MEDS ORDERED: LEVAQUIN PO SCH (10:00)
--- NOTE | 2017-04-03 12:11 | Discharge Summary ---
Providers - Providers Date of Admission: 03/30/17 04:51 Date of discharge: 04/03/17 Attending physician: MARISSA VASQUEZ 03/31/17 14:44 Consult to Physician [CONS] Routine Consulting Provider: LAURIE SIMMONS Reason For Exam: seizures Place consult to:: rodo thapa Notified:: [employer] Phone number called:: Was contact made?: Yes If yes, spoke with:: gena Time called:: 09:44 04/01/17 20:25 Consult to Wound/ET Nurse [CONS] Routine Reason For Exam: wound eval Primary care physician: HEADER DOCK Hospitalization Condition: Stable Hospital course: Patient is a 61 yo man from [facility] with a h/o Dementia, schizophrenia and sz disorder who presented with intractable seizures requiring intubation, now extubated. I called [facility], he was located on [address] [place] [address]. Trying to determine baseline, spoke with his nurse Abad TALBERT==>he on psych unit. His baseline: He ambulates, feeds him, dress himself, ativan in the past causes him to be confused/agitated. He has been intubated for seizures before and ativan always makes him confused but he eventually will return to his baseline. CT angiogram of the chest reported as no PE or aortic dissection, small right pleural effusion with atelectatic changes in the right lung base, 12.4 mm low density lesion in the left thyroid lobe, further evaluation recommended with outpatient thyroid sonography, multiple cystic lesions throughout the liver measuring up to 5 cm in diameter, sonographic evaluation of liver is recommended for better evaluation. CT brain reported as mild ethmoid and maxillary sinusitis, no acute stroke or hemorrhage, mild to moderate generalized volume loss -Acute hypoxic respiratory failure s/p I/E: continue to wean O2 -Status epilepitus: iv keppra, consult neurology -Acute encephalopathy: restraints, use Haldol -Liver lesion: Get ultrasound of the liver gallbladder. -Acute maxillary sinusitis with sepsis, present on admission: stop IV vancomycin , continue IV Levaquin -DVT prophylaxis: Subcutaneous heparin He is actually doing better mentally, a/o x 2 now. Hopefully back to [place] Disposition: DC/TX-03 SNF W [facility] CERT Time spent for discharge: 35 minutes Core Measure Documentation - Palliative Care Palliative Care/ Comfort Measures: Not Applicable - Core Measures Any of the following diagnoses?: none - VTE Discharge Requirements Deep Vein Thrombosis/Pulmonary Embolism Present on Admission: No Has pt received <5 days of overlap therapy or INR<2.0: No Anticoagulant overlap therapy prescribed at discharge: No Contraindication No Overlap Therapy order at DC: Not Indicated Exam - Physical Exam Narrative exam: GEN: WDWN, NAD, AWAKE, ALERT, ORIENTATED 2 HEENT: NCAT, EOMI, PERRL, OP Clear NECK: supple, no adenopathy, no thyromegaly, no JVD CVS/HEART: RRR, NORMAL S1S2, NO JVD, pulses present bilaterally CHEST/LUNGS: CTA B, Symmetrical chest expansion, good air entry bilaterally GI/Abdomen: soft, NTND, good bowel sounds, no guarding or rebound /Bladder: no suprapubic tenderness, no CVA or paraspinal tenderness EXT/Skin: no c/c/e, no obvious rash MSK: FROM x 4 Neuro: CN 2-12 grossly intact, no new focal deficits Psych: Agitated and confused - Constitutional Vitals: Temp Pulse Resp BP Pulse Ox 98.7 F 72 20 170/73 97 04/03/17 08:02 04/03/17 08:02 04/03/17 09:06 04/03/17 08:02 04/03/17 08:02 Plan Activity: other (no strenous activity until cleared by pcp) Diet: regular Follow up with: PRIMARY CARE, [Primary Care Provider] - 3-5 Days Prescriptions: ALBUTEROL NEB's [Proventil 0.083% NEBS] 2.5 mg IH Q3HRT PRN #30 day PRN Reason: Shortness Of Breath Levofloxacin [Levaquin TAB] 750 mg PO DAILY #6 day
[2017-04-03 16:34] VITALS: BP 177/69
== END 2017-04-03 19:30 | disposition home or self-care (01) | DRG 871 ==
LOC: ED 00:05 → CC1 04:51 → 3A 18:56
PROVIDERS: ADMIT Internal Medicine; ATTEND Internal Medicine
PROC: 5A1935Z Respiratory Ventilation, Less than 24 Consecutive Hours (ICD-10-PCS; principal; 2017-03-30)
PROC: 0BH17EZ Insertion of Endotracheal Airway into Trachea, Via Natural or Artificial Opening (ICD-10-PCS; 2017-03-30)
PROC: 4A033R1 Measurement of Arterial Saturation, Peripheral, Percutaneous Approach (ICD-10-PCS; 2017-03-30)
DX: A41.9 Sepsis, unspecified organism (principal); J96.01 Acute respiratory failure with hypoxia; G93.40 Encephalopathy, unspecified; G40.803 Other epilepsy, intractable, with status epilepticus; F03.90 Unspecified dementia, unspecified severity, without behavioral disturbance, psychotic disturbance, mood disturbance, and anxiety; E78.5 Hyperlipidemia, unspecified; J01.00 Acute maxillary sinusitis, unspecified; F20.9 Schizophrenia, unspecified; I10 Essential (primary) hypertension; K76.9 Liver disease, unspecified; Z79.899 Other long term (current) drug therapy; Z79.82 Long term (current) use of aspirin; Z79.2 Long term (current) use of antibiotics; Z82.49 Family history of ischemic heart disease and other diseases of the circulatory system
CPT/HCPCS: 36415; 36600; 70450; 71010; 71275; 74177; 76705; 80048; 80053; 81001; 82140; 82803; 82805; 82962; 83880; 85007; 85025; 85027; 85379; 85610; 87040; 87086; 87205; 93005; 93010; 94002; 94003; 99292; J0330; J1630; J1644; J1953; J1956; J2250; J2310; J2543; J3370; J7030; J7050; Q9967

== ENCOUNTER 2018-11-21 09:52 | Emergency (ER) | payer MEDICAID ==
[2018-11-21] MEDS ORDERED: KEPPRA 1,000 MG/NS 0.75% 100ML 1,000 MG/100 ML BAG IV ONE (10:10)
[2018-11-21 10:52] LABS: Hematocrit 39.1 % (35.5-45.6); Hemoglobin 12.8 gm/dl (11.8-15.2); Mean Corpuscular HGB Conc 33 % (32-34); Mean Corpuscular Volume 92 fl (84-94); Platelet Count 279 K/mm3 (140-440); Red Blood Count 4.27 M/mm3 (3.65-5.03); Red Cell Distribution Width 14.2 % (13.2-15.2)
[2018-11-21 11:12] LABS: BUN/Creatinine Ratio 11; Blood Urea Nitrogen 13 mg/dL (9-20); Calcium 8.6 mg/dL (8.4-10.2); Hemolysis Index 3
[2018-11-21 11:24] LABS: Total Cells Counted 100
[2018-11-21 11:25] LABS: Band Neutrophils # (Manual) 0.3 K/mm3; Basophils % (Manual) 0 % (0.0-1.8); Platelet Estimate Consistent w Auto; RBC Morphology Normal
--- NOTE | 2018-11-21 14:13 | Emergency Department Report ---
ED Seizure HPI - General Chief Complaint: Seizure Stated Complaint: SEIZURE Time Seen by Provider: 11/21/18 10:06 Source: EMS Mode of arrival: Stretcher Limitations: Altered Mental Status - History of Present Illness Initial Comments: Patient is a 63-year-old gentleman who is presenting from a half-way status post seizure. Patient does have a history of seizures and eggs Or. Patient is noted to have a seizure today which lasted approximately 18 minutes according to the staff at the half-way. Patient was given some Ativan IM prior to EMS arrival and the patient was then given 5 of Versed IV which did help. Seizures. Patient did not suffer any injuries to the tongue. She was postictal on arrival and cannot give any additional history. His noted by staff that the patient had a normal blood sugar in transport and there's been no recent fever nausea vomiting. Patient is awake and alert and poorly verbal at baseline. - Related Data Home Medications Medication Instructions Recorded Confirmed Last Taken Sennosides [Senna] 17.2 mg PO DAILY 01/22/17 11/21/18 Unknown Aspirin [Aspirin BABY CHEW TAB] 81 mg PO DAILY 03/18/18 11/21/18 Unknown Cholecalciferol Vit D3 [Vitamin D3 1,000 unit PO DAILY 03/18/18 11/21/18 Unknown 1,000 UNIT TAB] Donepezil [Aricept] 10 mg PO DAILY 03/18/18 11/21/18 Unknown Famotidine [Pepcid] 20 mg PO BID 03/18/18 11/21/18 Unknown levETIRAcetam [Keppra TAB] 1,000 mg PO BID 03/18/18 11/21/18 Unknown LORazepam [Ativan INJ] 1 vial IV Q6H 11/21/18 11/21/18 Unknown Ondansetron [Zofran TAB] 4 mg IV Q8HR PRN 11/21/18 11/21/18 Unknown Previous Rx's Medication Instructions Recorded Last Taken Type AtorvaSTATin [Lipitor] 40 mg PO QHS #30 tablet 01/29/17 Unknown Rx Metoprolol [Lopressor TAB] 12.5 mg PO BID #60 tablet 01/29/17 Unknown Rx Allergies Allergy/AdvReac Type Severity Reaction Status Date / Time No Known Allergies Allergy Verified 01/21/17 22:27 ED Review of Systems ROS: Stated complaint: SEIZURE Other details as noted in HPI Comment: All other systems reviewed and negative ED Past Medical Hx - Past Medical History Hx Hypertension: Yes Hx Congestive Heart Failure: No Hx Diabetes: No Hx Seizures: Yes Hx Asthma: No Hx COPD: Yes Hx Dementia: Yes Additional medical history: respiratory failure, hyperlipidemia, acid reflux, BPH - Social History Smoking Status: Unknown if ever smoked - Medications Home Medications: Home Medications Medication Instructions Recorded Confirmed Last Taken Type Sennosides [Senna] 17.2 mg PO DAILY 01/22/17 11/21/18 Unknown History AtorvaSTATin [Lipitor] 40 mg PO QHS #30 tablet 01/29/17 11/21/18 Unknown Rx Metoprolol [Lopressor TAB] 12.5 mg PO BID #60 tablet 01/29/17 11/21/18 Unknown Rx Aspirin [Aspirin BABY CHEW TAB] 81 mg PO DAILY 03/18/18 11/21/18 Unknown History Cholecalciferol Vit D3 [Vitamin D3 1,000 unit PO DAILY 03/18/18 11/21/18 Unknown History 1,000 UNIT TAB] Donepezil [Aricept] 10 mg PO DAILY 03/18/18 11/21/18 Unknown History Famotidine [Pepcid] 20 mg PO BID 03/18/18 11/21/18 Unknown History levETIRAcetam [Keppra TAB] 1,000 mg PO BID 03/18/18 11/21/18 Unknown History LORazepam [Ativan INJ] 1 vial IV Q6H 11/21/18 11/21/18 Unknown History Ondansetron [Zofran TAB] 4 mg IV Q8HR PRN 11/21/18 11/21/18 Unknown History ED Physical Exam - General Limitations: Altered Mental Status General appearance: in no apparent distress, postictal - Head Head exam: Present: atraumatic, normocephalic - Eye Eye exam: Present: normal appearance, PERRL - ENT ENT exam: Present: mucous membranes moist - Neck Neck exam: Present: normal inspection - Respiratory Respiratory exam: Present: normal lung sounds bilaterally. Absent: respiratory distress, wheezes, rales, rhonchi - Cardiovascular Cardiovascular Exam: Present: regular rate, normal rhythm, normal heart sounds. Absent: systolic murmur, diastolic murmur, rubs, gallop - GI/Abdominal GI/Abdominal exam: Present: soft, normal bowel sounds. Absent: distended, guarding, rigid - Rectal Rectal exam: Present: deferred - Extremities Exam Extremities exam: Present: normal inspection - Back Exam Back exam: Present: normal inspection - Neurological Exam Neurological exam: Present: alert, altered - Skin Skin exam: Present: warm, dry, intact, normal color. Absent: rash ED Course Vital Signs 11/21/18 11/21/18 11/21/18 09:55 10:02 10:15 Temperature 98.3 F Pulse Rate 105 H 96 H 97 H Respiratory 16 22 Rate Blood Pressure 106/49 106/49 106/49 O2 Sat by Pulse 96 100 Oximetry 11/21/18 11/21/18 11/21/18 10:30 10:45 11:01 Temperature Pulse Rate 99 H 104 H 91 H Respiratory 17 22 20 Rate Blood Pressure 116/42 116/42 114/45 O2 Sat by Pulse 100 98 100 Oximetry 11/21/18 11/21/18 11/21/18 11:30 12:00 12:30 Temperature Pulse Rate 86 114 H 86 Respiratory 23 23 20 Rate Blood Pressure 109/46 133/58 120/48 O2 Sat by Pulse 100 100 100 Oximetry 11/21/18 11/21/18 11/21/18 13:00 13:30 14:00 Temperature Pulse Rate 109 H 91 H 91 H Respiratory 26 H 23 21 Rate Blood Pressure 136/54 130/52 122/54 O2 Sat by Pulse 96 96 96 Oximetry ED Medical Decision Making - Lab Data Result diagrams: 11/21/18 10:36 11/21/18 10:36 Lab Results 11/21/18 11/21/18 Range/Units 10:36 10:36 WBC 16.2 H (4.5-11.0) K/mm3 RBC 4.27 (3.65-5.03) M/mm3 Hgb 12.8 (11.8-15.2) gm/dl Hct 39.1 (35.5-45.6) % MCV 92 (84-94) fl MCH 30 (28-32) pg MCHC 33 (32-34) % RDW 14.2 (13.2-15.2) % Plt Count 279 (140-440) K/mm3 Add Manual Diff Complete Total Counted 100 Seg Neutrophils % [employer] Installer Seg Neuts % (Manual) 92.0 H (40.0-70.0) % Band Neutrophils % 2.0 % Lymphocytes % (Manual) 2.0 L (13.4-35.0) % Reactive Lymphs % (Man) 0 % Monocytes % (Manual) 3.0 (0.0-7.3) % Eosinophils % (Manual) 1.0 (0.0-4.3) % Basophils % (Manual) 0 (0.0-1.8) % Metamyelocytes % 0 % Myelocytes % 0 % Promyelocytes % 0 % Blast Cells % 0 % Nucleated RBC % Not Reportable Seg Neutrophils # Man 14.9 H (1.8-7.7) K/mm3 Band Neutrophils # 0.3 K/mm3 Lymphocytes # (Manual) 0.3 L (1.2-5.4) K/mm3 Abs React Lymphs (Man) 0.0 K/mm3 Monocytes # (Manual) 0.5 (0.0-0.8) K/mm3 Eosinophils # (Manual) 0.2 (0.0-0.4) K/mm3 Basophils # (Manual) 0.0 (0.0-0.1) K/mm3 Metamyelocytes # 0.0 K/mm3 Myelocytes # 0.0 K/mm3 Promyelocytes # 0.0 K/mm3 Blast Cells # 0.0 K/mm3 WBC Morphology Not Reportable Hypersegmented Neuts Not Reportable Hyposegmented Neuts Not Reportable Hypogranular Neuts Not Reportable Smudge Cells Not Reportable Toxic Granulation Not Reportable Toxic Vacuolation Not Reportable Dohle Bodies Not Reportable Pelger-Huet Anomaly Not Reportable Nilo Rods Not Reportable Platelet Estimate Consistent w auto Clumped Platelets Not Reportable Plt Clumps, EDTA Not Reportable Large Platelets Not Reportable Giant Platelets Not Reportable Platelet Satelliting Not Reportable Plt Morphology Comment Not Reportable RBC Morphology Normal Dimorphic RBCs Not Reportable Polychromasia Not Reportable Hypochromasia Not Reportable Poikilocytosis Not Reportable Anisocytosis Not Reportable Microcytosis Not Reportable Macrocytosis Not Reportable Spherocytes Not Reportable Pappenheimer Bodies Not Reportable Sickle Cells Not Reportable Target Cells Not Reportable Tear Drop Cells Not Reportable Ovalocytes Not Reportable Helmet Cells Not Reportable Patel-[place]unter Bodies Not Reportable [place] Rings Not Reportable [place] Cells Not Reportable Bite Cells Not Reportable Crenated Cell Not Reportable Elliptocytes Not Reportable Acanthocytes (Spur) Not Reportable Rouleaux Not Reportable Hemoglobin C Crystals Not Reportable Schistocytes Not Reportable Malaria parasites Not Reportable Michael Bodies Not Reportable Hem Pathologist Commnt No Sodium 140 (137-145) mmol/L Potassium 4.1 (3.6-5.0) mmol/L Chloride 104.2 (98-107) mmol/L Carbon Dioxide 21 L (22-30) mmol/L Anion Gap 19 mmol/L BUN 13 (9-20) mg/dL Creatinine 1.2 (0.8-1.5) mg/dL Estimated GFR > 60 ml/min BUN/Creatinine Ratio 11 % Glucose 135 H (75-100) mg/dL Calcium 8.6 (8.4-10.2) mg/dL - Medical Decision Making Patient monitored for additional seizure activity here in the emergency depart ment. Patient was monitored until he returned back to his baseline. Patient did receive a dose of Keppra to reload the patient. Patient will be discharged back to half-way. Critical care attestation.: If time is entered above; I have spent that time in minutes in the direct care of this critically ill patient, excluding procedure time. ED Disposition Clinical Impression: Breakthrough seizure Disposition: DC-01 TO HOME OR SELFCARE Is pt being admited?: No Does the pt Need Aspirin: No Condition: Stable Instructions: Epilepsy (ED) Referrals: TARA QUINONES MD [Primary Care Provider] - 3-5 Days Time of Disposition: 14:13
[2018-11-21 17:21] VITALS: BP 123/54
== END 2018-11-21 17:20 | disposition home or self-care (01) ==
LOC: ED 09:52
DX: R56.9 Unspecified convulsions (principal); I10 Essential (primary) hypertension; J44.9 Chronic obstructive pulmonary disease, unspecified; F03.90 Unspecified dementia, unspecified severity, without behavioral disturbance, psychotic disturbance, mood disturbance, and anxiety; E78.5 Hyperlipidemia, unspecified; K21.9 Gastro-esophageal reflux disease without esophagitis; N40.0 Benign prostatic hyperplasia without lower urinary tract symptoms; J96.90 Respiratory failure, unspecified, unspecified whether with hypoxia or hypercapnia; Z79.899 Other long term (current) drug therapy
CPT/HCPCS: 36415; 80048; 85007; 85025; 96374; 99284; J1953